=== PATIENT | female | born 1945 | race Caucasian/White ===

== ENCOUNTER 2016-12-08 21:00 | Emergency (ER) | payer MEDICARE, BC ==
[2016-12-08 21:26] VITALS: BP 119/65; PULSE 88; RESP 18; TEMP 97.7
--- NOTE | 2016-12-08 21:57 | ED ---
Recheck HPI - General Chief Complaint: Recheck/Abnormal Lab/Rx Stated Complaint: Labs Time Seen by Provider: 12/08/16 21:37 Source: patient, RN notes reviewed, old records reviewed Mode of arrival: ambulatory Limitations: no limitations - History of Present Illness Initial Comments: This is a 71 year old female, who missed her appointment to leave a urine sample for drug testing requesting we do the drug screen for her. She states that she needs a drug screen with alcohol. I discussed we do not do this test in the ER. Patient states that she needs a note stating that she attempted to have this done. Discussed follow up tomorrow to have the testing completed. She denies any physical symptoms. - Related Data Home Medications Medication Instructions Recorded Confirmed DULoxetine HCL [Cymbalta] 60 mg PO BID 12/18/13 12/08/16 Dextroamphetamine/Amphetamine 30 mg PO BID 12/18/13 12/08/16 [Adderall] clonazePAM [KlonoPIN] 0.5 mg PO BID 12/18/13 12/08/16 Loratadine [Claritin] 10 mg PO DAILY 09/27/15 12/08/16 Fluticasone Nasal [place] [Flonase 2 spr EA NOSTRIL DAILY 06/22/16 12/08/16 Nasal [place]] Previous Rx's Medication Instructions Recorded Gabapentin [Neurontin] 400 mg PO TID #90 cap 05/10/16 Morphine Sulfate ER [Ms Contin] 30 mg PO AC-TID #90 tablet 05/10/16 HYDROcodone/APAP 10-325MG [[place] 10 mg PO QID PRN #15 tab 07/07/16 10-325] Thiamine [Vitamin B-1] 100 mg PO BID@1200,1700 tab 07/07/16 Allergies Allergy/AdvReac Type Severity Reaction Status Date / Time escitalopram oxalate Allergy Rash/Hives Verified 12/08/16 21:23 [From Lexapro] Review of Systems ROS Statement: Those systems with pertinent positive or pertinent negative responses have been documented in the HPI. ROS Other: All systems not noted in ROS Statement are negative. Constitutional: Denies: fever, chills Eyes: Denies: eye pain ENT: Denies: ear pain Respiratory: Denies: cough, dyspnea Cardiovascular: Denies: chest pain Endocrine: Denies: fatigue Gastrointestinal: Denies: abdominal pain, nausea, vomiting Genitourinary: Denies: urgency Musculoskeletal: Denies: back pain Skin: Denies: lesions Neurological: Denies: weakness Hematological/Lymphatic: Denies: easy bleeding Past Medical History Past Medical History: GERD/Reflux Additional Past Medical History / Comment(s): pain clinic treatment, back pain, ARTHRITIS,SPINAL STENOSIS,SCOLIOSIS, SPONDYLOSIS, DDD, BULGIG DISCS, OINCHED NERVES. HAS HAD LOOSE TO WATERYS TOOLS SINCE GASTRIC SX UNLESS SHE TAKES HER PAIN PILLS THAT BIND HER A BIT. History of Any Multi-Drug Resistant Organisms: None Reported Past Surgical History: Bariatric Surgery, Tubal Ligation Additional Past Surgical History / Comment(s): NAMRATA EN Y GASTRIC BYPASS Additional Past Anesthesia/Blood Transfusion Reaction / Comment(s): SON HAD REACTION TO ANESTHESIA AND WAS ON A VENT-FAMILY WAS TESTED Past Psychological History: Anxiety, Depression Smoking Status: Current every day smoker Past Alcohol Use History: Daily, Heavy Additional Past Alcohol Use History / Comment(s): HAS BEEN smoking on and off since a teenager, currently 2-3 cig per day, admits to occ glass of wine Past Drug Use History: Prescription Drug Abuse - Past Family History Son(s) Additional Family Medical History / Comment(s): SON HAD PROBLEM WITH ANESTHESIA WAS ON A VENT-FAMILY WAS TESTED Mother Family Medical History: Myocardial Infarction ([place]) Father Family Medical History: Cancer, Prostate Disorder Additional Family Medical History / Comment(s): prostate cancer Brother(s) Additional Family Medical History / Comment(s): lung General Exam Limitations: no limitations General appearance: alert, in no apparent distress, other (patient has essential tremor. ) Head exam: Present: atraumatic, normocephalic, normal inspection Eye exam: Present: normal appearance, PERRL, EOMI. Absent: scleral icterus, conjunctival injection, periorbital swelling ENT exam: Present: normal exam, mucous membranes moist Neck exam: Present: normal inspection. Absent: tenderness, meningismus, lymphadenopathy Respiratory exam: Present: normal lung sounds bilaterally. Absent: respiratory distress, wheezes, rales, rhonchi, stridor Cardiovascular Exam: Present: regular rate, normal rhythm, normal heart sounds. Absent: systolic murmur, diastolic murmur, rubs, gallop, clicks GI/Abdominal exam: Present: soft, normal bowel sounds. Absent: distended, tenderness, guarding, rebound, rigid Extremities exam: Present: normal inspection, full ROM, normal capillary refill. Absent: tenderness, pedal edema, joint swelling, calf tenderness Back exam: Present: normal inspection Neurological exam: Present: alert, oriented X3, CN II-XII intact Psychiatric exam: Present: normal affect, normal mood Skin exam: Present: warm, dry, intact, normal color. Absent: rash Course Vital Signs 12/08/16 21:21 Temperature 97.7 F Pulse Rate 88 Respiratory 18 Rate Blood Pressure 119/65 O2 Sat by Pulse 98 Oximetry Medical Decision Making - Medical Decision Making This is a 71 year old female, who missed her appointment to leave a urine sample for drug testing requesting we do the drug screen for her. She states that she needs a drug screen with alcohol. I discussed we do not do this test in the ER. Patient states that she needs a note stating that she attempted to have this done. Discussed follow up tomorrow to have the testing completed. Patient agrees to treatment plan and will comply. Patient given note on discharge papers, stating she was here. Disposition Clinical Impression: Encounter for drug screening Disposition: HOME SELF-CARE Condition: Good Additional Instructions: Patient was unable to complete a urine drug screen earlier today at her scheduled place. Patient decided to come to the emergency department to see if we could possibly completely went for her today. I discussed with the patient that we do not offer the specific drug test at our facility. We discussed that she should complete a urine drug screen tomorrow and she can show this note, to show that she did attempt to come to the facility to have a urine drug screen completed. Referrals: Mehdi Varela DO [Primary Care Provider] - 1-2 days Time of Disposition: 21:57
== END 2016-12-08 22:03 | disposition home or self-care (01) ==
LOC: EC 21:00
DX: Z02.83 Encounter for blood-alcohol and blood-drug test (principal); F41.9 Anxiety disorder, unspecified; Z79.899 Other long term (current) drug therapy; Z79.51 Long term (current) use of inhaled steroids; Z98.84 Bariatric surgery status; Z88.8 Allergy status to other drugs, medicaments and biological substances; F17.210 Nicotine dependence, cigarettes, uncomplicated
CPT/HCPCS: 99281

== ENCOUNTER 2017-01-09 02:17 | Emergency (ER) | payer MEDICARE, BC ==
[2017-01-09] MEDS ORDERED: MORPHINE SULFATE 4 MG/ML SYRINGE IM STA (02:46)
[2017-01-09 02:50] VITALS: BP 147/83; PULSE 90; RESP 18; TEMP 97
--- NOTE | 2017-01-09 02:50 | ED ---
Back Pain HPI - General Chief Complaint: Back Pain/Injury Stated Complaint: chronic back pain Time Seen by Provider: 01/09/17 02:41 Source: patient, RN notes reviewed Mode of arrival: ambulatory Limitations: no limitations - History of Present Illness Initial Comments: 71-year-old female presents emergency Department chief complaint chronic back pain. Patient is low back pain. Patient states she has scoliosis and has chronic pain. Patient states she crushed one of her pills on accident and also drops amount of her floor which she could not find them. Patient lab her morphine. Patient is due for her prescription this week. Patient states she cannot tolerate the pain because is not controlled by her [place]. Patient has a bowel bladder incontinence or retention. Denies any chest pain or shortness of breath. Denies any upper back pain. Patient offers no other complaints. - Related Data Home Medications Medication Instructions Recorded Confirmed DULoxetine HCL [Cymbalta] 60 mg PO BID 12/18/13 01/09/17 Dextroamphetamine/Amphetamine 30 mg PO BID 12/18/13 01/09/17 [Adderall] clonazePAM [KlonoPIN] 0.5 mg PO BID 12/18/13 01/09/17 Loratadine [Claritin] 10 mg PO DAILY 09/27/15 01/09/17 Fluticasone Nasal [place] [Flonase 2 spr EA NOSTRIL DAILY 06/22/16 01/09/17 Nasal [place]] Previous Rx's Medication Instructions Recorded Gabapentin [Neurontin] 400 mg PO TID #90 cap 05/10/16 Morphine Sulfate ER [Ms Contin] 30 mg PO AC-TID #90 tablet 05/10/16 HYDROcodone/APAP 10-325MG [[place] 10 mg PO QID PRN #15 tab 07/07/16 10-325] Thiamine [Vitamin B-1] 100 mg PO BID@1200,1700 tab 07/07/16 Allergies Allergy/AdvReac Type Severity Reaction Status Date / Time escitalopram oxalate Allergy Rash/Hives Verified 01/09/17 02:23 [From Lexapro] Review of Systems ROS Statement: Those systems with pertinent positive or pertinent negative responses have been documented in the HPI. ROS Other: All systems not noted in ROS Statement are negative. Past Medical History Past Medical History: GERD/Reflux Additional Past Medical History / Comment(s): pain clinic treatment, back pain, ARTHRITIS,SPINAL STENOSIS,SCOLIOSIS, SPONDYLOSIS, DDD, BULGIG DISCS, OINCHED NERVES. HAS HAD LOOSE TO WATERYS TOOLS SINCE GASTRIC SX UNLESS SHE TAKES HER PAIN PILLS THAT BIND HER A BIT. History of Any Multi-Drug Resistant Organisms: None Reported Past Surgical History: Bariatric Surgery, Tubal Ligation Additional Past Surgical History / Comment(s): NAMRATA EN Y GASTRIC BYPASS Additional Past Anesthesia/Blood Transfusion Reaction / Comment(s): SON HAD REACTION TO ANESTHESIA AND WAS ON A VENT-FAMILY WAS TESTED Past Psychological History: Anxiety, Depression Smoking Status: Current every day smoker Past Alcohol Use History: Daily, Heavy Additional Past Alcohol Use History / Comment(s): HAS BEEN smoking on and off since a teenager, currently 2-3 cig per day, admits to occ glass of wine Past Drug Use History: Prescription Drug Abuse - Past Family History Son(s) Additional Family Medical History / Comment(s): SON HAD PROBLEM WITH ANESTHESIA WAS ON A VENT-FAMILY WAS TESTED Mother Family Medical History: Myocardial Infarction ([place]) Father Family Medical History: Cancer, Prostate Disorder Additional Family Medical History / Comment(s): prostate cancer Brother(s) Additional Family Medical History / Comment(s): lung General Exam Limitations: no limitations General appearance: alert, in no apparent distress Neck exam: Present: normal inspection. Absent: tenderness, meningismus, lymphadenopathy Respiratory exam: Present: normal lung sounds bilaterally. Absent: respiratory distress, wheezes, rales, rhonchi, stridor Cardiovascular Exam: Present: regular rate, normal rhythm, normal heart sounds. Absent: systolic murmur, diastolic murmur, rubs, gallop, clicks GI/Abdominal exam: Present: soft, normal bowel sounds. Absent: distended, tenderness, guarding, rebound, rigid Extremities exam: Present: normal inspection, full ROM, normal capillary refill. Absent: tenderness, pedal edema, joint swelling, calf tenderness Back exam: Present: full ROM, tenderness (Mild lumbar), paraspinal tenderness ( Lumbar). Absent: normal inspection (Scoliosis noted), vertebral tenderness Skin exam: Present: warm, dry, intact, normal color. Absent: rash Course Vital Signs 01/09/17 02:20 Temperature 97 F L Pulse Rate 90 Respiratory 18 Rate Blood Pressure 147/83 O2 Sat by Pulse 100 Oximetry Medical Decision Making - Medical Decision Making 79-year-old female presented for chronic pain. Patient is out of her morphine. Patient be given an injection of this time and she is advised that this is a 1 time dose for that she is not getting her prescription and that she would not get any further pain medication from the ER at this time. Patient agrees this plan and will follow-up today for her prescription her morphine. Disposition Clinical Impression: Scoliosis, Chronic back pain Disposition: HOME SELF-CARE Condition: Stable Instructions: Chronic Back Pain (ED) Additional Instructions: Please return to the Emergency Department if symptoms worsen or any other concerns. Referrals: Mehdi Varela DO [Primary Care Provider] - 1-2 days Time of Disposition: 02:49
== END 2017-01-09 02:58 | disposition home or self-care (01) ==
LOC: EC 02:17
DX: M41.9 Scoliosis, unspecified (principal); G89.29 Other chronic pain; M54.5 Low back pain; K21.9 Gastro-esophageal reflux disease without esophagitis; F32.9 Major depressive disorder, single episode, unspecified; F41.9 Anxiety disorder, unspecified; F17.210 Nicotine dependence, cigarettes, uncomplicated; Z79.51 Long term (current) use of inhaled steroids; Z79.899 Other long term (current) drug therapy; Z88.8 Allergy status to other drugs, medicaments and biological substances
CPT/HCPCS: 96372 ×2; 99283 ×2; 99282; J2270

== ENCOUNTER 2017-01-09 22:45 | Emergency (ER) | payer MEDICARE, BC ==
[2017-01-09 22:52] VITALS: BP 121/64; PULSE 70; RESP 18; TEMP 97.3
[2017-01-09] MEDS ORDERED: MORPHINE SULFATE 4 MG/ML SYRINGE IM STA (23:18)
--- NOTE | 2017-01-09 23:21 | ED ---
Back Pain HPI - General Chief Complaint: Back Pain/Injury Stated Complaint: Back pain Time Seen by Provider: 01/09/17 23:05 Source: patient, RN notes reviewed Limitations: no limitations - History of Present Illness Initial Comments: 71-year-old female presents emergency Department chief complaint of back pain. Patient suffers from chronic back pain. Patient is here because she ran out of her prescription. Patient states she just needs some help with her pain. Patient states this is much like her normal back pain. Patient states in the center of her back. Patient denies any loss of bowel or bladder function or any saddle anesthesia with this. Patient states she is not currently having any other symptoms.Patient denies any recent fever, chills, shortness of breath , chest pain, abdominal pain, nausea vomiting, numbness or tingling, dysuria or hematuria, constipation or diarrhea, headaches or visual changes, or any other current symptoms. - Related Data Home Medications Medication Instructions Recorded Confirmed DULoxetine HCL [Cymbalta] 60 mg PO BID 12/18/13 01/09/17 Dextroamphetamine/Amphetamine 30 mg PO BID 12/18/13 01/09/17 [Adderall] clonazePAM [KlonoPIN] 0.5 mg PO BID 12/18/13 01/09/17 Loratadine [Claritin] 10 mg PO DAILY 09/27/15 01/09/17 Fluticasone Nasal [place] [Flonase 2 spr EA NOSTRIL DAILY 06/22/16 01/09/17 Nasal [place]] Previous Rx's Medication Instructions Recorded Gabapentin [Neurontin] 400 mg PO TID #90 cap 05/10/16 Morphine Sulfate ER [Ms Contin] 30 mg PO AC-TID #90 tablet 05/10/16 HYDROcodone/APAP 10-325MG [[place] 10 mg PO QID PRN #15 tab 07/07/16 10-325] Thiamine [Vitamin B-1] 100 mg PO BID@1200,1700 tab 07/07/16 Allergies Allergy/AdvReac Type Severity Reaction Status Date / Time escitalopram oxalate Allergy Rash/Hives Verified 01/09/17 23:17 [From [employer]] Review of Systems ROS Statement: Those systems with pertinent positive or pertinent negative responses have been documented in the HPI. ROS Other: All systems not noted in ROS Statement are negative. Past Medical History Past Medical History: GERD/Reflux Additional Past Medical History / Comment(s): pain clinic treatment, back pain, ARTHRITIS,SPINAL STENOSIS,SCOLIOSIS, SPONDYLOSIS, DDD, BULGIG DISCS, OINCHED NERVES. HAS HAD LOOSE TO WATERYS TOOLS SINCE GASTRIC SX UNLESS SHE TAKES HER PAIN PILLS THAT BIND HER A BIT. History of Any Multi-Drug Resistant Organisms: None Reported Past Surgical History: Bariatric Surgery, Tubal Ligation Additional Past Surgical History / Comment(s): NAMRATA EN Y GASTRIC BYPASS Additional Past Anesthesia/Blood Transfusion Reaction / Comment(s): SON HAD REACTION TO ANESTHESIA AND WAS ON A VENT-FAMILY WAS TESTED Past Psychological History: Anxiety, Depression Smoking Status: Current every day smoker Past Alcohol Use History: Daily, Heavy Additional Past Alcohol Use History / Comment(s): HAS BEEN smoking on and off since a teenager, currently 2-3 cig per day, admits to occ glass of wine Past Drug Use History: Prescription Drug Abuse - Past Family History Son(s) Additional Family Medical History / Comment(s): SON HAD PROBLEM WITH ANESTHESIA WAS ON A VENT-FAMILY WAS TESTED Mother Family Medical History: Myocardial Infarction ([place]) Father Family Medical History: Cancer, Prostate Disorder Additional Family Medical History / Comment(s): prostate cancer Brother(s) Additional Family Medical History / Comment(s): lung General Exam Limitations: no limitations General appearance: alert, in no apparent distress Head exam: Present: atraumatic, normocephalic, normal inspection ENT exam: Present: normal exam, mucous membranes moist Neck exam: Present: normal inspection. Absent: tenderness, meningismus, lymphadenopathy Respiratory exam: Present: normal lung sounds bilaterally. Absent: respiratory distress, wheezes, rales, rhonchi, stridor Cardiovascular Exam: Present: regular rate, normal rhythm, normal heart sounds. Absent: systolic murmur, diastolic murmur, rubs, gallop, clicks Extremities exam: Present: normal inspection, full ROM, normal capillary refill. Absent: tenderness, pedal edema, joint swelling, calf tenderness Back exam: Present: normal inspection Neurological exam: Present: alert, oriented X3, CN II-XII intact Psychiatric exam: Present: normal affect, normal mood Skin exam: Present: warm, dry, intact, normal color. Absent: rash Course Vital Signs 01/09/17 22:49 Temperature 97.3 F L Pulse Rate 70 Respiratory 18 Rate Blood Pressure 121/64 O2 Sat by Pulse 99 Oximetry Medical Decision Making - Medical Decision Making 71-year-old female presents with a flare up of chronic back pain. This and we will give her an injection for pain. We discussed follow-up with her DrFlorencio rader. We discussed will not give her any narcotic prescriptions for home. Patient stated that she understood and all questions have been answered. She will be discharged. Disposition Clinical Impression: Chronic back pain Disposition: HOME SELF-CARE Condition: Stable Instructions: Chronic Back Pain (ED) Additional Instructions: Please use medication as discussed. Please follow up with family doctor if symptoms have not improved over the next two days. Please return to the emergency room if your symptoms increase or worsen or for any other concerns. Referrals: Mehdi Varela DO [Primary Care Provider] - 1-2 days Time of Disposition: 23:20
== END 2017-01-09 23:48 | disposition home or self-care (01) ==
LOC: EC 22:45
DX: G89.29 Other chronic pain (principal); M54.9 Dorsalgia, unspecified; F32.9 Major depressive disorder, single episode, unspecified; F41.9 Anxiety disorder, unspecified; F17.210 Nicotine dependence, cigarettes, uncomplicated; Z79.51 Long term (current) use of inhaled steroids; Z79.899 Other long term (current) drug therapy; Z88.8 Allergy status to other drugs, medicaments and biological substances
CPT/HCPCS: 99282; 96372; J2270

== ENCOUNTER 2017-01-10 16:42 | Emergency (ER) | payer MEDICARE, BC ==
[2017-01-10 17:19] VITALS: BP 110/79; PULSE 94; RESP 20; TEMP 98.1
--- NOTE | 2017-01-10 17:32 | ED ---
General Adult HPI - General Chief complaint: Recheck/Abnormal Lab/Rx Stated complaint: Back/Leg Pain Time Seen by Provider: 01/10/17 17:24 Source: patient, RN notes reviewed Mode of arrival: wheelchair Limitations: no limitations - History of Present Illness Initial comments: 71-year-old female presents to the emergency department requesting a narcotic pain shot. Patient's has been here every day for the past 2 days. That she ran out of her narcotics and cannot have them filled until tomorrow. Patient states this is much like her normal back pain. Patient states her chronic pain. Patient states it is because she ran out of her morphine. Patient claims that she lost some of her morphine. Patient states this is exactly like her normal back pain with no change in her different symptoms. Patient states that she was concerned due to her increased pain and she cannot have her medications with tomorrow so she thought that she should be evaluated. Patient denies any recent fever, chills, shortness of breath, chest pain, abdominal pain , nausea vomiting, numbness or tingling, dysuria or hematuria, constipation or diarrhea, headaches or visual changes, or any other current symptoms. - Related Data Home Medications Medication Instructions Recorded Confirmed DULoxetine HCL [Cymbalta] 60 mg PO BID 12/18/13 01/09/17 Dextroamphetamine/Amphetamine 30 mg PO BID 12/18/13 01/09/17 [Adderall] clonazePAM [KlonoPIN] 0.5 mg PO BID 12/18/13 01/09/17 Loratadine [Claritin] 10 mg PO DAILY 09/27/15 01/09/17 Gabapentin [Neurontin] 400 mg PO QID 01/09/17 01/09/17 HYDROcodone/APAP 10-325MG [[place] 1 tab PO QID PRN 01/09/17 01/09/17 10-325] Morphine Sulfate [Morphine Sulfate 50 mg PO BID 01/09/17 01/09/17 ER] Allergies Allergy/AdvReac Type Severity Reaction Status Date / Time escitalopram oxalate Allergy Rash/Hives Verified 01/10/17 17:19 [From Lexapro] Review of Systems ROS Statement: Those systems with pertinent positive or pertinent negative responses have been documented in the HPI. ROS Other: All systems not noted in ROS Statement are negative. Past Medical History Past Medical History: GERD/Reflux Additional Past Medical History / Comment(s): pain clinic treatment, back pain, ARTHRITIS,SPINAL STENOSIS,SCOLIOSIS, SPONDYLOSIS, DDD, BULGIG DISCS, OINCHED NERVES. HAS HAD LOOSE TO WATERYS TOOLS SINCE GASTRIC SX UNLESS SHE TAKES HER PAIN PILLS THAT BIND HER A BIT. History of Any Multi-Drug Resistant Organisms: None Reported Past Surgical History: Bariatric Surgery, Tubal Ligation Additional Past Surgical History / Comment(s): NAMRATA EN Y GASTRIC BYPASS Additional Past Anesthesia/Blood Transfusion Reaction / Comment(s): SON HAD REACTION TO ANESTHESIA AND WAS ON A VENT-FAMILY WAS TESTED Past Psychological History: Anxiety, Depression Smoking Status: Current every day smoker Past Alcohol Use History: Daily, Heavy Additional Past Alcohol Use History / Comment(s): HAS BEEN smoking on and off since a teenager, currently 2-3 cig per day, admits to occ glass of wine Past Drug Use History: Prescription Drug Abuse - Past Family History Son(s) Additional Family Medical History / Comment(s): SON HAD PROBLEM WITH ANESTHESIA WAS ON A VENT-FAMILY WAS TESTED Mother Family Medical History: Myocardial Infarction ([place]) Father Family Medical History: Cancer, Prostate Disorder Additional Family Medical History / Comment(s): prostate cancer Brother(s) Additional Family Medical History / Comment(s): lung General Exam Limitations: no limitations General appearance: alert, in no apparent distress ENT exam: Present: normal exam, mucous membranes moist Neck exam: Present: normal inspection. Absent: tenderness, meningismus, lymphadenopathy Respiratory exam: Present: normal lung sounds bilaterally. Absent: respiratory distress, wheezes, rales, rhonchi, stridor Cardiovascular Exam: Present: regular rate, normal rhythm, normal heart sounds. Absent: systolic murmur, diastolic murmur, rubs, gallop, clicks Extremities exam: Present: normal inspection, full ROM, normal capillary refill. Absent: tenderness, pedal edema, joint swelling, calf tenderness Back exam: Present: normal inspection, full ROM, tenderness (Throughout the lumbar spine) Neurological exam: Present: alert, oriented X3 Psychiatric exam: Present: normal affect, normal mood Skin exam: Present: warm, dry, intact, normal color. Absent: rash Course Vital Signs 01/10/17 17:14 Temperature 98.1 F Pulse Rate 94 Respiratory 20 Rate Blood Pressure 110/79 O2 Sat by Pulse 99 Oximetry Medical Decision Making - Medical Decision Making 71 yo female presents to the ER with cc of chronic back pain. Patient is currently her narcotics. I assembled the patient morphine injection. We discussed that she needs to follow-up with her pain specialist. Discussed return parameters all her questions. She states she understood and she is here in the plan. She'll be discharged. Disposition Clinical Impression: Chronic back pain Disposition: HOME SELF-CARE Condition: Stable Instructions: Chronic Back Pain (ED) Additional Instructions: Please use medication as discussed. Please follow up with family doctor if symptoms have not improved over the next two days. Please return to the emergency room if your symptoms increase or worsen or for any other concerns. Referrals: Mehdi Varela DO [Primary Care Provider] - 1-2 days Time of Disposition: 17:32
[2017-01-10] MEDS ORDERED: MORPHINE SULFATE 10 MG/ML SYRINGE IM STA (17:44)
== END 2017-01-10 17:57 | disposition home or self-care (01) ==
LOC: EC 16:42
DX: G89.29 Other chronic pain (principal); M54.9 Dorsalgia, unspecified; M19.90 Unspecified osteoarthritis, unspecified site; F41.9 Anxiety disorder, unspecified; F32.9 Major depressive disorder, single episode, unspecified; F17.210 Nicotine dependence, cigarettes, uncomplicated; Z79.891 Long term (current) use of opiate analgesic; Z79.899 Other long term (current) drug therapy; Z88.8 Allergy status to other drugs, medicaments and biological substances
CPT/HCPCS: 99283; 96372; J2270

== ENCOUNTER 2017-02-11 15:24 | Emergency (ER) | payer MEDICARE, BC ==
[2017-02-11 15:31] VITALS: BP 120/84; PULSE 94; RESP 20; TEMP 98.1
[2017-02-11] MEDS ORDERED: MORPHINE SULFATE 10 MG/ML SYRINGE IM STA (15:57)
--- NOTE | 2017-02-11 16:05 | ED ---
Back Pain HPI - General Chief Complaint: Back Pain/Injury Stated Complaint: spine pain Time Seen by Provider: 02/11/17 15:37 Source: patient, RN notes reviewed Limitations: no limitations - History of Present Illness Initial Comments: Patient is a 71-year-old female presents to the emergency room for evaluation of back pain. Patient states she has a history of chronic back pain. Patient states she has scoliosis. Patient states she takes [place], gabapentin and morphine for her chronic pain. Patient states that she ran out of her morphine on Sunday. Patient states her last dose of morphine was Sunday. Patient states she is having increasing pain because she has not been able to take her morphine. Patient states the [place] does help relieve the symptoms but only takes the edge off. Patient states that she needs refill on her prescriptions. Patient states the pain in her upper and lower back. Patient denies fecal or urinary incontinence. Patient denies saddle anesthesia. Patient denies any recent fall or trauma to her back. Patient denies reinjuring her back recently. - Related Data Home Medications Medication Instructions Recorded Confirmed DULoxetine HCL [Cymbalta] 60 mg PO BID 12/18/13 02/11/17 Dextroamphetamine/Amphetamine 30 mg PO BID 12/18/13 02/11/17 [Adderall] clonazePAM [KlonoPIN] 0.5 mg PO BID 12/18/13 02/11/17 Loratadine [Claritin] 10 mg PO DAILY 09/27/15 02/11/17 Gabapentin [Neurontin] 400 mg PO QID 01/09/17 02/11/17 HYDROcodone/APAP 10-325MG [[place] 1 tab PO QID PRN 01/09/17 02/11/17 10-325] Morphine Sulfate [Morphine Sulfate 50 mg PO BID 01/09/17 02/11/17 ER] Allergies Allergy/AdvReac Type Severity Reaction Status Date / Time escitalopram oxalate Allergy Rash/Hives Verified 02/11/17 15:45 [From Epicsellapro] Review of Systems ROS Statement: Those systems with pertinent positive or pertinent negative responses have been documented in the HPI. ROS Other: All systems not noted in ROS Statement are negative. Past Medical History Past Medical History: GERD/Reflux Additional Past Medical History / Comment(s): pain clinic treatment, back pain, ARTHRITIS,SPINAL STENOSIS,SCOLIOSIS, SPONDYLOSIS, DDD, BULGIG DISCS, OINCHED NERVES. HAS HAD LOOSE TO WATERYS TOOLS SINCE GASTRIC SX UNLESS SHE TAKES HER PAIN PILLS THAT BIND HER A BIT. History of Any Multi-Drug Resistant Organisms: None Reported Past Surgical History: Bariatric Surgery, Tubal Ligation Additional Past Surgical History / Comment(s): NAMRATA EN Y GASTRIC BYPASS Additional Past Anesthesia/Blood Transfusion Reaction / Comment(s): SON HAD REACTION TO ANESTHESIA AND WAS ON A VENT-FAMILY WAS TESTED Past Psychological History: Anxiety, Depression Smoking Status: Current every day smoker Past Alcohol Use History: Daily, Heavy Past Drug Use History: Prescription Drug Abuse - Past Family History Son(s) Additional Family Medical History / Comment(s): SON HAD PROBLEM WITH ANESTHESIA WAS ON A VENT-FAMILY WAS TESTED Mother Family Medical History: Myocardial Infarction ([place]) Father Family Medical History: Cancer, Prostate Disorder Additional Family Medical History / Comment(s): prostate cancer Brother(s) Additional Family Medical History / Comment(s): lung General Exam - General Exam Comments Initial Comments: Laying in exam room, no distress. Limitations: no limitations General appearance: alert, in no apparent distress Head exam: Present: atraumatic, normocephalic, normal inspection Eye exam: Present: normal appearance ENT exam: Present: normal exam Neck exam: Present: normal inspection Respiratory exam: Present: normal lung sounds bilaterally. Absent: respiratory distress Cardiovascular Exam: Present: regular rate, normal rhythm, normal heart sounds Extremities exam: Present: normal inspection Back exam: Present: vertebral tenderness (tenderness on palpating over lumbar spine) Neurological exam: Present: alert, oriented X3, CN II-XII intact Psychiatric exam: Present: normal affect, normal mood Skin exam: Present: warm, dry, intact, normal color. Absent: rash Course Vital Signs 02/11/17 15:29 Temperature 98.1 F Pulse Rate 94 Respiratory 20 Rate Blood Pressure 120/84 O2 Sat by Pulse 98 Oximetry Medical Decision Making - Medical Decision Making Patient is a 71-year-old female since emergency room for evaluation of chronic back pain. I did explain to patient that we do not provide refills for morphine and that she would have to follow-up with her primary care provider. Patient was given a pain shot here. Return parameters discussed. Disposition Clinical Impression: Chronic back pain Disposition: HOME SELF-CARE Condition: Good Instructions: Chronic Back Pain (ED) Additional Instructions: Please follow up with primary care provider regarding pain medications. Alternate ice and heat. Continue taking at home pain medications as needed. If any new symptom arises or symptoms worsen, return to ER as soon as possible. Referrals: Mehdi Varela DO [Primary Care Provider] - 1-2 days Time of Disposition: 16:04
== END 2017-02-11 16:48 | disposition home or self-care (01) ==
LOC: EC 15:24
DX: G89.29 Other chronic pain (principal); M54.5 Low back pain; M41.9 Scoliosis, unspecified; M19.90 Unspecified osteoarthritis, unspecified site; M47.9 Spondylosis, unspecified; M48.00 Spinal stenosis, site unspecified; F41.9 Anxiety disorder, unspecified; F32.9 Major depressive disorder, single episode, unspecified; F17.200 Nicotine dependence, unspecified, uncomplicated; Z88.8 Allergy status to other drugs, medicaments and biological substances; Z79.891 Long term (current) use of opiate analgesic; Z79.899 Other long term (current) drug therapy
CPT/HCPCS: 99283; 96372; J2270

== ENCOUNTER 2017-02-13 13:35 | Emergency (ER) | payer MEDICARE, BC ==
[2017-02-13 13:40] VITALS: BP 124/76; PULSE 90; RESP 18; TEMP 97.5
--- NOTE | 2017-02-13 14:04 | ED ---
Back Pain HPI - General Chief Complaint: Back Pain/Injury Stated Complaint: Back Pain Time Seen by Provider: 02/13/17 13:49 Source: patient, RN notes reviewed Limitations: no limitations - History of Present Illness Initial Comments: 71-year-old female presents to the emergency Department chief complaint of chronic back pain. Patient states that she has chronic back pain which she takes morphine and [place] for. Patient states she's only received her [place] because where she states the [facility] supposedly does not have her refills. Patient states her back pain is not controlled about morphine and that is why she is here. Patient denies any fever chills cough cold. Patient states that like her back pain. Patient denies any loss of bowel or bladder function. Patient was concerned due to her pain and discomfort so she thought that she should be evaluated. Patient denies any recent fever, chills, shortness of breath, chest pain, abdominal pain, nausea vomiting, numbness or tingling, dysuria or hematuria, constipation or diarrhea, headaches or visual changes, or any other current symptoms. - Related Data Home Medications Medication Instructions Recorded Confirmed DULoxetine HCL [Cymbalta] 60 mg PO BID 12/18/13 02/13/17 Dextroamphetamine/Amphetamine 30 mg PO BID 12/18/13 02/13/17 [Adderall] clonazePAM [KlonoPIN] 0.5 mg PO BID 12/18/13 02/13/17 Loratadine [Claritin] 10 mg PO DAILY 09/27/15 02/13/17 Gabapentin [Neurontin] 400 mg PO QID 01/09/17 02/13/17 HYDROcodone/APAP 10-325MG [[place] 1 tab PO QID PRN 01/09/17 02/13/17 10-325] Morphine Sulfate [Morphine Sulfate 50 mg PO BID 01/09/17 02/13/17 ER] Allergies Allergy/AdvReac Type Severity Reaction Status Date / Time escitalopram oxalate Allergy Rash/Hives Verified 02/13/17 13:43 [From Lexapro] Review of Systems ROS Statement: Those systems with pertinent positive or pertinent negative responses have been documented in the HPI. ROS Other: All systems not noted in ROS Statement are negative. Past Medical History Past Medical History: GERD/Reflux Additional Past Medical History / Comment(s): pain clinic treatment, back pain, ARTHRITIS,SPINAL STENOSIS,SCOLIOSIS, SPONDYLOSIS, DDD, BULGIG DISCS, OINCHED NERVES. HAS HAD LOOSE TO WATERYS TOOLS SINCE GASTRIC SX UNLESS SHE TAKES HER PAIN PILLS THAT BIND HER A BIT. History of Any Multi-Drug Resistant Organisms: None Reported Past Surgical History: Bariatric Surgery, Tubal Ligation Additional Past Surgical History / Comment(s): NAMRATA EN Y GASTRIC BYPASS Additional Past Anesthesia/Blood Transfusion Reaction / Comment(s): SON HAD REACTION TO ANESTHESIA AND WAS ON A VENT-FAMILY WAS TESTED Past Psychological History: Anxiety, Depression Smoking Status: Current every day smoker Past Alcohol Use History: None Reported Past Drug Use History: Prescription Drug Abuse - Past Family History Son(s) Additional Family Medical History / Comment(s): SON HAD PROBLEM WITH ANESTHESIA WAS ON A VENT-FAMILY WAS TESTED Mother Family Medical History: Myocardial Infarction ([place]) Father Family Medical History: Cancer, Prostate Disorder Additional Family Medical History / Comment(s): prostate cancer Brother(s) Additional Family Medical History / Comment(s): lung General Exam Limitations: no limitations General appearance: alert, in no apparent distress Head exam: Present: atraumatic, normocephalic, normal inspection Neck exam: Present: normal inspection. Absent: tenderness, meningismus, lymphadenopathy Respiratory exam: Present: normal lung sounds bilaterally. Absent: respiratory distress, wheezes, rales, rhonchi, stridor Cardiovascular Exam: Present: regular rate, normal rhythm, normal heart sounds. Absent: systolic murmur, diastolic murmur, rubs, gallop, clicks GI/Abdominal exam: Present: soft, normal bowel sounds. Absent: distended, tenderness, guarding, rebound, rigid Back exam: Present: normal inspection, full ROM. Absent: tenderness Neurological exam: Present: alert, oriented X3 Psychiatric exam: Present: normal affect, normal mood Skin exam: Present: warm, dry, intact, normal color. Absent: rash Course Vital Signs 02/13/17 13:36 Temperature 97.5 F L Pulse Rate 90 Respiratory 18 Rate Blood Pressure 124/76 O2 Sat by Pulse 99 Oximetry Medical Decision Making - Medical Decision Making 71-year-old female presents emergency Department chief complaint of back pain. At this time we contacted [facility] and they are not refilling patient's morphine due to the doctor not wanting to refill this and wanting to evaluate the patient. This time we will not be given the patient morphine. She brought up offered a Toradol injection. This patient will be discharged home. All questions have been answered. Disposition Clinical Impression: Chronic back pain Disposition: HOME SELF-CARE Condition: Stable Instructions: Chronic Back Pain (ED) Additional Instructions: Please use medication as discussed. Please follow up with family doctor if symptoms have not improved over the next two days. Please return to the emergency room if your symptoms increase or worsen or for any other concerns. Referrals: Mehdi Varela DO [Primary Care Provider] - 1-2 days Time of Disposition: 14:16
[2017-02-13] MEDS ORDERED: KETOROLAC 60 MG/2 ML VIAL IM STA (14:18)
== END 2017-02-13 14:31 | disposition home or self-care (01) ==
LOC: EC 13:35
DX: G89.29 Other chronic pain (principal); M54.9 Dorsalgia, unspecified; M19.90 Unspecified osteoarthritis, unspecified site; F32.9 Major depressive disorder, single episode, unspecified; F41.9 Anxiety disorder, unspecified; F17.200 Nicotine dependence, unspecified, uncomplicated; Z79.899 Other long term (current) drug therapy; Z88.8 Allergy status to other drugs, medicaments and biological substances
CPT/HCPCS: 99282; 96372; J1885

== ENCOUNTER → 2017-07-06 | Outpatient (CLI) | payer MEDICARE, BC ==
--- NOTE | 2017-07-06 23:11 | MR ---
EXAMINATION TYPE: MR tspine/lspine wo con DATE OF EXAM: 07/06/2017 COMPARISON: NONE HISTORY: Chronic back pain TECHNIQUE: Multiplanar, multisequence imaging of the lumbar spine is performed without IV contrast. Multiplanar multiecho imaging of the thoracic spine was performed without contrast. FINDINGS: Thoracic vertebra have normal alignment. There is 10% anterior wedging of T4 vertebra consi stent with an old fracture. Thoracic spinal cord has fairly normal signal pattern. There is no eviden ce of edema. There is no thoracic spinal stenosis. There is no thoracic paraspinal mass. The posterio r elements appear intact. There is slight decreased signal in the disks throughout the thoracic spine related to desiccation. There is some anterior and posterior endplate spur formation at levels from T9 to T12 without significant encroachment on the spinal canal. There is a thoracolumbar levoscoliosis. There is 5 mm anterior subluxation of L4 in relation L5. Ther e is 10% depression of the superior endplate of L1 vertebra that appears old. There is dural ectasia with sacral cysts present at S1 and S2. I see no lumbar paraspinal mass. Visualized sacroiliac joints appear intact. There is neural foramina l narrowing bilaterally at L4-5 due to the subluxation deformity and disc space narrowing and facet a rthropathy. CONCLUSION: Spondylotic changes in the thoracic and lumbar spine. Old mild compression deformity of T4 vertebra. Old mild compression deformity of L1 vertebra. Degenerative first degree L4-5 spondylolisthesis. No spinal stenosis. Small posterior disc bulging at L3-4 and L1-2 and L2-3. Neural foraminal stenosis on the left side more than the right at L4-5. Thoracolumbar levoscoliosis. Sacral cysts.
== END | disposition home or self-care (01) ==
LOC: RADMRIMAIN 14:41
PROVIDERS: ATTEND Family Medicine
DX: M99.73 Connective tissue and disc stenosis of intervertebral foramina of lumbar region (principal); M51.26 Other intervertebral disc displacement, lumbar region; M43.16 Spondylolisthesis, lumbar region; M47.816 Spondylosis without myelopathy or radiculopathy, lumbar region; M47.814 Spondylosis without myelopathy or radiculopathy, thoracic region; M41.85 Other forms of scoliosis, thoracolumbar region; M85.68 Other cyst of bone, other site
CPT/HCPCS: 72146; 72148

== ENCOUNTER 2017-08-14 21:06 | Emergency (ER) | payer MEDICARE, BC ==
--- NOTE | 2017-08-14 22:13 | ED ---
General Adult HPI - General Chief complaint: Recheck/Abnormal Lab/Rx Stated complaint: pain Time Seen by Provider: 08/14/17 21:52 Source: patient, RN notes reviewed Mode of arrival: wheelchair Limitations: no limitations - History of Present Illness Initial comments: This is a 71-year-old female who presents to the emergency department with chief complaint of pain. Patient has chronic back pain and is well-known to this emergency department. She states that she takes Morphine and [place] for her chronic back pain. Medications are given to her by her guardian. Patient states that her guardian is out of town so she has been receiving medications from her guardian's secretary to board of commissioners. She states that last she was given enough morphine to last until Sunday. She states that she took 3 [place] today and is now out of all pain medications. Patient requests pain medication. Denies any new injuries, trauma or falls. Denies chest pain, shortness of breath, abdominal pain, nausea or vomiting. Patient does state that she has been having some diarrhea recently and worries she is withdrawing. - Related Data Home Medications Medication Instructions Recorded Confirmed DULoxetine HCL [Cymbalta] 60 mg PO BID 12/18/13 08/14/17 Loratadine [Claritin] 10 mg PO DAILY 09/27/15 08/14/17 Gabapentin [Neurontin] 400 mg PO QID 01/09/17 08/14/17 HYDROcodone/APAP 10-325MG [[place] 1 tab PO QID PRN 01/09/17 08/14/17 10-325] Morphine Sulfate [Morphine Sulfate 50 mg PO BID 01/09/17 08/14/17 ER] QUEtiapine FUMARATE [SEROquel] 25 mg PO BID 08/14/17 08/14/17 Allergies Allergy/AdvReac Type Severity Reaction Status Date / Time escitalopram oxalate Allergy Rash/Hives Verified 08/14/17 21:57 [From Lexapro] Review of Systems ROS Statement: Those systems with pertinent positive or pertinent negative responses have been documented in the HPI. ROS Other: All systems not noted in ROS Statement are negative. Past Medical History Past Medical History: GERD/Reflux Additional Past Medical History / Comment(s): pain clinic treatment, back pain, ARTHRITIS,SPINAL STENOSIS,SCOLIOSIS, SPONDYLOSIS, DDD, BULGIG DISCS, OINCHED NERVES. HAS HAD LOOSE TO WATERYS TOOLS SINCE GASTRIC SX UNLESS SHE TAKES HER PAIN PILLS THAT BIND HER A BIT. History of Any Multi-Drug Resistant Organisms: None Reported Past Surgical History: Bariatric Surgery, Tubal Ligation Additional Past Surgical History / Comment(s): NAMRATA EN Y GASTRIC BYPASS Additional Past Anesthesia/Blood Transfusion Reaction / Comment(s): SON HAD REACTION TO ANESTHESIA AND WAS ON A VENT-FAMILY WAS TESTED Past Psychological History: Anxiety, Depression Smoking Status: Current every day smoker Past Alcohol Use History: None Reported Past Drug Use History: Prescription Drug Abuse - Past Family History Son(s) Additional Family Medical History / Comment(s): SON HAD PROBLEM WITH ANESTHESIA WAS ON A VENT-FAMILY WAS TESTED Mother Family Medical History: Myocardial Infarction ([place]) Father Family Medical History: Cancer, Prostate Disorder Additional Family Medical History / Comment(s): prostate cancer Brother(s) Additional Family Medical History / Comment(s): lung General Exam - General Exam Comments Initial Comments: General: Awake and alert, well-developed; in no apparent distress. Does not appear to be acutely ill. HEENT: Head atraumatic, normocephalic. Pupils are equal, round and reactive to light. Extraocular movements intact. Oropharynx moist without erythema or exudate. Neck: Supple. Normal ROM. Cardiovascular: Regular rate and rhythm. No murmurs, rubs or gallops. Chest symmetrical. Respiratory: Lungs clear to auscultation bilaterally. No wheezes, rales or rhonchi. Normal respiratory effort with no use of accessory muscles. Musculoskeletal: Normal ROM, no tenderness bilateral upper and lower extremities. Skin: [place], warm and dry without rashes or lesions. Neurological: Alert and oriented x3. CN II-XII grossly intact. Speech is fluent and answers are appropriate. No focal neuro deficits. Limitations: no limitations Course Vital Signs 08/14/17 21:27 Temperature 97.7 F Pulse Rate 105 H Respiratory 18 Rate Blood Pressure 136/86 O2 Sat by Pulse 99 Oximetry Medical Decision Making - Medical Decision Making This is a 71-year-old female who presents to the emergency department with chief complaint of pain. Patient has chronic pain for which she takes morphine and [place]. We were awaiting return call from patient's guardian regarding administration of narcotics while in the emergency department. Vital signs stable and not having an acute medical emergency. On reevaluation, patient states she would like to go home. She exited the emergency department to await a taxi ride home. She refused to stay, stating that her guardian was not going to be calling back. Patient left without completion of evaluation and treatment ; patient eloped. Disposition Clinical Impression: Chronic back pain Disposition: Left Against Medical Advice Condition: Good Instructions: Chronic Back Pain (ED) Additional Instructions: Please follow up with primary care provider within 1-2 days. Return to emergency department if symptoms should worsen or any concerns arise. Referrals: Mehdi Varela DO [Primary Care Provider] - 1-2 days Time of Disposition: 22:22
[2017-08-15 23:14] VITALS: BP 136/86; PULSE 105; RESP 18; TEMP 97.7
== END 2017-08-14 22:24 | disposition left against medical advice (07) ==
LOC: EC 21:06
DX: M54.9 Dorsalgia, unspecified (principal); G89.29 Other chronic pain; F41.9 Anxiety disorder, unspecified; F32.9 Major depressive disorder, single episode, unspecified; F17.200 Nicotine dependence, unspecified, uncomplicated; Z53.29 Procedure and treatment not carried out because of patient's decision for other reasons; Z79.899 Other long term (current) drug therapy; Z79.891 Long term (current) use of opiate analgesic; Z88.8 Allergy status to other drugs, medicaments and biological substances
CPT/HCPCS: 99282

== ENCOUNTER 2017-08-16 12:37 | Emergency (ER) | payer MEDICARE, BC ==
[2017-08-16] MEDS ORDERED: KETOROLAC 60 MG/2 ML VIAL IM STA (13:03)
--- NOTE | 2017-08-16 13:09 | ED ---
General Adult HPI - General Chief complaint: Back Pain/Injury Stated complaint: Back Pain Time Seen by Provider: 08/16/17 12:50 Source: EMS Mode of arrival: EMS Limitations: no limitations - History of Present Illness Initial comments: This 71-year-old white female presents requesting morphine. She states that she has chronic back pain and she has not had any of her medications in the last 4 days. She apparently had the police and EMS called by her neighbor. She apparently does have a significant problem with narcotic abuse. She has a court appointed guardian, Saman. His office number is [phone]. He apparently is an commercial litigation attorney. She was just here on 08/14/2017 for the same. She did not receive any narcotics to the ER at that time. She has no change in her back pain. It is chronic in nature. It does not radiate. There is no fevers or chills. She is repetitively asking for narcotics. Old records are reviewed and it appears that she does have a significant alcohol abuse problem as well. The patient states that she did drink alcohol last night to help dull the pain. According to EMS, there are multiple empty vodka bottles around the apartment. No other complaints or modifying factors. - Related Data Home Medications Medication Instructions Recorded Confirmed DULoxetine HCL [Cymbalta] 60 mg PO BID 12/18/13 08/16/17 Loratadine [Claritin] 10 mg PO DAILY 09/27/15 08/16/17 HYDROcodone/APAP 10-325MG [[place] 1 tab PO BID PRN 01/09/17 08/16/17 10-325] Fluticasone Nasal [place] [Flonase 2 spr EA NOSTRIL DAILY PRN 08/16/17 08/16/17 Nasal [place]] Gabapentin 600 mg PO QID 08/16/17 08/16/17 Ibuprofen [Motrin] 600 mg PO TID PRN 08/16/17 08/16/17 Loperamide HCl [Imodium A-D] 2 mg PO TID PRN 08/16/17 08/16/17 Morphine Sulfate ER [Ms Contin 60 mg PO Q12HR 08/16/17 08/16/17 60Mg] QUEtiapine FUMARATE [SEROquel] 25 mg PO HS 01/04/18 01/04/18 clonazePAM [KlonoPIN] 0.5 mg PO DAILY 08/16/17 08/16/17 Allergies Allergy/AdvReac Type Severity Reaction Status Date / Time escitalopram oxalate Allergy Rash/Hives Verified 08/16/17 14:02 [From Lexapro] Review of Systems ROS Statement: Those systems with pertinent positive or pertinent negative responses have been documented in the HPI. ROS Other: All systems not noted in ROS Statement are negative. Past Medical History Past Medical History: GERD/Reflux Additional Past Medical History / Comment(s): pain clinic treatment, back pain, ARTHRITIS,SPINAL STENOSIS,SCOLIOSIS, SPONDYLOSIS, DDD, BULGIG DISCS, OINCHED NERVES. HAS HAD LOOSE TO WATERYS TOOLS SINCE GASTRIC SX UNLESS SHE TAKES HER PAIN PILLS THAT BIND HER A BIT. History of Any Multi-Drug Resistant Organisms: None Reported Past Surgical History: Bariatric Surgery, Tubal Ligation Additional Past Surgical History / Comment(s): NAMRATA EN Y GASTRIC BYPASS Additional Past Anesthesia/Blood Transfusion Reaction / Comment(s): SON HAD REACTION TO ANESTHESIA AND WAS ON A VENT-FAMILY WAS TESTED Past Psychological History: Anxiety, Depression Smoking Status: Current every day smoker Past Alcohol Use History: Daily Past Drug Use History: Prescription Drug Abuse - Past Family History Son(s) Additional Family Medical History / Comment(s): SON HAD PROBLEM WITH ANESTHESIA WAS ON A VENT-FAMILY WAS TESTED Mother Family Medical History: Myocardial Infarction ([place]) Father Family Medical History: Cancer, Prostate Disorder Additional Family Medical History / Comment(s): prostate cancer Brother(s) Additional Family Medical History / Comment(s): lung General Exam - General Exam Comments Initial Comments: GENERAL: The patient is well nourished and well hydrated. VITAL SIGNS: Heart rate, blood pressure, respiratory rate reviewed as recorded in nurse's notes. EYES: Pupils are round and reactive. Extraocular movements are intact. No conjunctival / lid redness or swelling. ENT: No external evidence of injury, swelling, or ecchymosis. Airway is patent. Throat is clear. NECK: Nontender. No swelling or evidence of injury. No subcutaneous emphysema. Trachea is midline. No thyroid mass. HEART: Regular rate and rhythm. Good peripheral pulses. LUNGS/CHEST: Breath sounds clear and equal bilaterally. No rales, rhonchi, or wheezes. No ecchymosis, subcutaneous emphysema, or tenderness. ABDOMEN: Abdomen soft without tenderness. No palpable masses or organomegaly. No peritoneal signs. No abdominal wall swelling or ecchymosis. EXTREMITIES: No extremity tenderness. Normal muscle tone and function. There is some mild tenderness present to the perithoracic region of her spine. NEUROLOGIC: Sensation is grossly intact. Cranial nerve exam reveals face is symmetrical, tongue is midline, speech is clear. SKIN: No abrasions or ecchymosis is noted. No induration or masses noted. PSYCHIATRIC: Alert and oriented. Somewhat bizarre behavior as she is only interested in obtaining narcotics. She is in no distress upon distraction. Limitations: no limitations Course Vital Signs 08/16/17 08/16/17 12:50 14:38 Temperature 97.9 F Pulse Rate 94 99 Respiratory 20 18 Rate Blood Pressure 108/63 120/59 O2 Sat by Pulse 96 96 Oximetry Medical Decision Making - Medical Decision Making The patient was seen and examined. All diagnostics were reviewed. The case is discussed with the office of commercial litigation attorney Bill who apparently is her power of commercial litigation attorney per patient. He apparently is out of town but his legal administrative secretary is quite involved in this situation. She relates that they are in charge of her medication dispensing. She relates that she had filled her medications for morphine this past week on . She then filled the Springer on Sunday. All of the morphine was gone when she was there on Sunday and it should've lasted her until the next . She apparently took all of the morphine when she was not supposed to. She also relates that the paramedics found multiple bottles of empty vodka all over the apartment. She relates that she has a significant problem with narcotic and alcohol abuse. It is not felt as though she should receive any further narcotics through the emergency department and will be discharged. The breath alcohol test was found to be 150. She is counseled extensively regarding alcohol use/abuse and narcotic use/ abuse. She does relate to me that she is in charge of psychiatric and substance abuse counseling program in [place]. 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 Nevertheless, she is still counseled regarding alcohol and narcotic abuse and it is not felt as though she should be receiving any further narcotics. It is felt as though she does have a significant problem in regard to alcohol narcotic abuse. She is watched for several hours and will be discharged when sober. The legal administrative secretary of the commercial litigation attorney relates that they are obtaining a locking medication dispensing box for her home so that she will be unable to abuse her medications in the future. Disposition Clinical Impression: Chronic back pain, Narcotic abuse, Alcohol abuse, Alcohol intoxication Disposition: HOME SELF-CARE Condition: Fair Instructions: Narcotic Abuse (ED), Alcohol Intoxication (ED), Abuse of Alcohol (ED), Chronic Back Pain (ED) Referrals: Mehdi Varela DO [Primary Care Provider] - 1-2 days Time of Disposition: 13:09
[2017-08-16] MEDS ORDERED: ACETAMINOPHEN TAB 500 MG TAB PO STA (14:42)
[2017-08-16 16:39] VITALS: BP 124/70; PULSE 90; RESP 20; TEMP 97.5
== END 2017-08-16 16:02 | disposition home or self-care (01) ==
LOC: EC 12:37
DX: G89.29 Other chronic pain (principal); M54.9 Dorsalgia, unspecified; F11.10 Opioid abuse, uncomplicated; F10.129 Alcohol abuse with intoxication, unspecified; F32.9 Major depressive disorder, single episode, unspecified; F41.9 Anxiety disorder, unspecified; F17.200 Nicotine dependence, unspecified, uncomplicated; Z79.899 Other long term (current) drug therapy; Z79.891 Long term (current) use of opiate analgesic; Z88.8 Allergy status to other drugs, medicaments and biological substances
CPT/HCPCS: 82075; 99284; 96372; J1885

== ENCOUNTER 2017-10-19 06:23 | Emergency (ER) | payer MEDICARE, BC ==
--- NOTE | 2017-10-19 07:42 | ED ---
General Adult HPI - General Chief complaint: Psychiatric Symptoms Stated complaint: ETOH,mental health Time Seen by Provider: 10/19/17 07:08 Source: patient, EMS, RN notes reviewed, old records reviewed Mode of arrival: EMS Limitations: altered mental status - History of Present Illness Initial comments: 71-year-old female presents with alcohol intoxication and uncooperative behavior. Patient has history of chronic back pain. She states she has been out of her medication. She also admits to drinking a large amount of alcohol. She denies suicidal ideation but states "she has broken, she just wants her pain to go away. Patient does have a public guardian. She is quite intoxicated at the time of my evaluation. She will be reassessed when more sober. - Related Data Home Medications Medication Instructions Recorded Confirmed DULoxetine HCL [Cymbalta] 60 mg PO BID 12/18/13 10/19/17 Loratadine [Claritin] 10 mg PO DAILY 09/27/15 10/19/17 HYDROcodone/APAP 10-325MG [[place] 1 tab PO BID PRN 01/09/17 10/19/17 10-325] Fluticasone Nasal [place] [Flonase 2 spr EA NOSTRIL DAILY PRN 08/16/17 10/19/17 Nasal [place]] Gabapentin 600 mg PO QID 08/16/17 10/19/17 Ibuprofen [Motrin] 600 mg PO TID PRN 08/16/17 10/19/17 Loperamide HCl [Imodium A-D] 2 mg PO TID PRN 08/16/17 10/19/17 Morphine Sulfate ER [Ms Contin 60 mg PO Q12HR 08/16/17 10/19/17 60Mg] QUEtiapine FUMARATE [SEROquel] 25 mg PO BID 08/16/17 10/19/17 Cyanocobalamin [Vitamin B-12 1,000 mcg SQ WEEKLY 10/19/17 10/19/17 Injection] Ergocalciferol [Vitamin D2] 50,000 unit PO Q7D 10/19/17 10/19/17 Furosemide [Lasix] 40 mg PO DAILY 10/19/17 10/19/17 Potassium Chloride [Klor-Con 10] 10 meq PO DAILY 10/19/17 10/19/17 Allergies Allergy/AdvReac Type Severity Reaction Status Date / Time escitalopram oxalate Allergy Rash/Hives Verified 08/16/17 14:02 [From Lexapro] Review of Systems ROS Statement: Those systems with pertinent positive or pertinent negative responses have been documented in the HPI. ROS Other: All systems not noted in ROS Statement are negative. Past Medical History Past Medical History: GERD/Reflux Additional Past Medical History / Comment(s): pain clinic treatment, back pain, ARTHRITIS,SPINAL STENOSIS,SCOLIOSIS, SPONDYLOSIS, DDD, BULGIG DISCS, OINCHED NERVES. HAS HAD LOOSE TO WATERYS TOOLS SINCE GASTRIC SX UNLESS SHE TAKES HER PAIN PILLS THAT BIND HER A BIT. History of Any Multi-Drug Resistant Organisms: None Reported Past Surgical History: Bariatric Surgery, Tubal Ligation Additional Past Surgical History / Comment(s): NAMRATA EN Y GASTRIC BYPASS Additional Past Anesthesia/Blood Transfusion Reaction / Comment(s): SON HAD REACTION TO ANESTHESIA AND WAS ON A VENT-FAMILY WAS TESTED Past Psychological History: Anxiety, Depression Smoking Status: Current every day smoker Past Alcohol Use History: Daily Past Drug Use History: Prescription Drug Abuse - Past Family History Son(s) Additional Family Medical History / Comment(s): SON HAD PROBLEM WITH ANESTHESIA WAS ON A VENT-FAMILY WAS TESTED Mother Family Medical History: Myocardial Infarction ([place]) Father Family Medical History: Cancer, Prostate Disorder Additional Family Medical History / Comment(s): prostate cancer Brother(s) Additional Family Medical History / Comment(s): lung General Exam Limitations: altered mental status General appearance: alert, appears intoxicated Head exam: Present: atraumatic, normocephalic Eye exam: Present: normal appearance, PERRL Neck exam: Present: normal inspection. Absent: tenderness, meningismus Respiratory exam: Present: normal lung sounds bilaterally. Absent: respiratory distress Cardiovascular Exam: Present: regular rate, normal rhythm GI/Abdominal exam: Present: soft. Absent: distended, tenderness Extremities exam: Present: normal inspection, normal capillary refill. Absent: pedal edema Neurological exam: Present: alert. Absent: motor sensory deficit Psychiatric exam: Present: agitated, anxious Skin exam: Present: warm, dry, intact. Absent: cyanosis, diaphoretic Course Vital Signs 10/19/17 10/19/17 10/19/17 06:25 12:39 15:36 Temperature 98.4 F Pulse Rate 88 98 81 Respiratory 19 18 16 Rate Blood Pressure 110/61 109/68 118/74 O2 Sat by Pulse 100 98 97 Oximetry - Reevaluation(s) Reevaluation #1: 10/19/17 12:48 Case discussed with the patient's best friend who comes to visit her the emergency department. According to her friend she has been clean for approximately one year. She states she drank to cope with her pain. She does have chronic back pain and sees pain management. Patient states she sometimes has suicidal thoughts but is confident she would never do anything about it. Reevaluation #2: 10/19/17 16:27 10/19/17 17:28 Medical Decision Making - Medical Decision Making 79-year-old female presents with alcohol intoxication, chronic pain, and concern for suicidal ideation. She is medically cleared in the emergency department, she was evaluated by EPS, it is felt that this is primarily a substance abuse issue, there is no need for further psychiatric care at this time. Patient will be discharged home. She is given outpatient substance abuse referral information the ER. She will be discharged with her daughter-in- law. Please follow up with painter bottom for pain control medications. - Lab Data Result diagrams: 10/19/17 07:20 10/19/17 07:20 Lab Results 10/19/17 10/19/17 10/19/17 Range/Units 07:20 07:20 07:28 WBC 5.2 (3.8-10.6) k/uL RBC 4.44 (3.80-5.40) m/uL Hgb 13.9 (11.4-16.0) gm/dL Hct 44.1 (34.0-46.0) % MCV 99.5 (80.0-100.0) fL MCH 31.4 (25.0-35.0) pg MCHC 31.5 (31.0-37.0) g/dL RDW 14.7 (11.5-15.5) % Plt Count 493 H (150-450) k/uL Neutrophils % 63 % Lymphocytes % 27 % Monocytes % 7 % Eosinophils % 1 % Basophils % 0 % Neutrophils # 3.3 (1.3-7.7) k/uL Lymphocytes # 1.4 (1.0-4.8) k/uL Monocytes # 0.4 (0-1.0) k/uL Eosinophils # 0.0 (0-0.7) k/uL Basophils # 0.0 (0-0.2) k/uL Macrocytosis Slight Sodium 148 H (137-145) mmol/L Potassium 4.4 (3.5-5.1) mmol/L Chloride 113 H (98-107) mmol/L Carbon Dioxide 25 (22-30) mmol/L Anion Gap 10 mmol/L BUN 7 (7-17) mg/dL Creatinine 0.47 L (0.52-1.04) mg/dL Est GFR (CKD-EPI)AfAm >90 (>60 ml/min/1.73 sqM) Est GFR (CKD-EPI)NonAf >90 (>60 ml/min/1.73 sqM) Glucose 104 H (74-99) mg/dL Calcium 9.0 (8.4-10.2) mg/dL Total Bilirubin 0.3 (0.2-1.3) mg/dL AST 25 (14-36) U/L ALT 21 (9-52) U/L Alkaline Phosphatase 105 (38-126) U/L Total Protein 6.9 (6.3-8.2) g/dL Albumin 3.8 (3.5-5.0) g/dL Urine Opiates Screen Detected H (NotDetected) Ur Oxycodone Screen Not Detected (NotDetected) Urine Methadone Screen Not Detected (NotDetected) Ur Propoxyphene Screen Not Detected (NotDetected) Ur Barbiturates Screen Not Detected (NotDetected) U Tricyclic Antidepress Not Detected (NotDetected) Ur Phencyclidine Scrn Not Detected (NotDetected) Ur Amphetamines Screen Not Detected (NotDetected) U Methamphetamines Scrn Not Detected (NotDetected) U Benzodiazepines Scrn Not Detected (NotDetected) Urine Cocaine Screen Not Detected (NotDetected) U Marijuana (THC) Screen Not Detected (NotDetected) Serum Alcohol 246 mg/dL Disposition Clinical Impression: Depression, Alcoholic intoxication, Chronic, continuous use of opioids Disposition: HOME SELF-CARE Condition: Good Instructions: Polysubstance Abuse (ED), Alcohol Intoxication (ED), Depression ( ED) Additional Instructions: Postoperative primary care physician and painter [facility]. Referrals: None,Stated [Primary Care Provider] - 1-2 days Time of Disposition: 17:29
[2017-10-19 07:53] LABS: Basophils % (A) 0 %; Eosinophils % (A) 1 %; HCT 44.1 % (34.0-46.0); HGB 13.9 gm/dL (11.4-16.0); Lymphocytes # (A) 1.4 k/uL (1.0-4.8); Lymphocytes % (A) 27 %; MCH 31.4 pg (25.0-35.0); MCHC 31.5 g/dL (31.0-37.0); MCV 99.5 fL (80.0-100.0); Macrocytosis Slight; Mean Platelet Volume 6.8; Monocytes # (A) 0.4 k/uL (0-1.0); Monocytes % (A) 7 %; Neutrophils # (A) 3.3 k/uL (1.3-7.7); Neutrophils % (A) 63 %; Platelet Count 493 k/uL (150-450); RBC 4.44 m/uL (3.80-5.40); RDW 14.7 % (11.5-15.5); WBC 5.2 k/uL (3.8-10.6)
[2017-10-19 08:03] LABS: ALT 21 U/L (9-52); AST 25 U/L (14-36); Albumin 3.8 g/dL (3.5-5.0); Alkaline Phosphatase 105 U/L (38-126); Anion Gap 10 mmol/L; Blood Urea Nitrogen 7 mg/dL (7-17); Carbon Dioxide 25 mmol/L (22-30); Chloride 113 mmol/L (98-107); Glucose 104 mg/dL (74-99); Potassium 4.4 mmol/L (3.5-5.1); Sodium 148 mmol/L (137-145); Total Bilirubin 0.3 mg/dL (0.2-1.3); Total Protein 6.9 g/dL (6.3-8.2)
[2017-10-19 08:14] LABS: Amphetamine Screen,Urine Not Detected (NotDetected); Barbiturate Screen,Urine Not Detected (NotDetected); Benzodiazepines Screen,Urine Not Detected (NotDetected); Cocaine Screen,Urine Not Detected (NotDetected); Methadone Screen, Urine Not Detected (NotDetected); Opiate Screen,Urine Detected (NotDetected); Oxycodone Screen, Urine Not Detected (NotDetected); Phencyclidine Screen,Urine Not Detected (NotDetected); Tricyclic Antidepressant,Urine Not Detected (NotDetected); Urn Cannabinoid Scrn Not Detected (NotDetected)
[2017-10-19 08:18] LABS: Alcohol 246 mg/dL
[2017-10-19] MEDS ORDERED: SODIUM CHLORIDE 0.9% 500 ML IV ONE (08:46)
[2017-10-19] MEDS ORDERED: HYDROcodone/APAP 5-325MG 1 EACH TAB PO STA (14:44)
[2017-10-19] MEDS: MORPHINE SULFATE 4 MG/ML SYRINGE IVP ONE ×2 (14:58→16:41)
[2017-10-19 15:36] VITALS: RESP 16
[2017-10-19 18:00] VITALS: BP 118/68; PULSE 75; TEMP 97.8
== END 2017-10-19 17:58 | disposition home or self-care (01) ==
LOC: EC 06:23
DX: F10.129 Alcohol abuse with intoxication, unspecified (principal); F32.9 Major depressive disorder, single episode, unspecified; F11.90 Opioid use, unspecified, uncomplicated; R41.82 Altered mental status, unspecified; F41.9 Anxiety disorder, unspecified; R45.1 Restlessness and agitation; G89.29 Other chronic pain; F17.200 Nicotine dependence, unspecified, uncomplicated; Z79.899 Other long term (current) drug therapy; Z88.8 Allergy status to other drugs, medicaments and biological substances
CPT/HCPCS: 82075; 36415; 80053; 85025; 80306; 80320; 99285; 96374; 96376; 96361; J2270

== ENCOUNTER → 2017-10-24 | Outpatient (CLI) | payer MEDICARE, BC ==
--- NOTE | 2017-10-24 12:28 | US ---
EXAMINATION TYPE: US venous doppler duplex LE RT DATE OF EXAM: 10/24/2017 12:16 PM COMPARISON: NONE CLINICAL HISTORY: 71-year-old female R60.0 Localized edema. Pt states recent right leg/ankle swelling SIDE PERFORMED: Right TECHNIQUE: The lower extremity deep venous system is examined utilizing real time linear array sonog isabel with graded compression, doppler sonography and color-flow sonography. FINDINGS: VESSELS IMAGED: External Iliac Vein (EIV) Common Femoral Vein Deep Femoral Vein Greater Saphenous Vein * Femoral Vein Popliteal Vein Small Saphenous Vein * Proximal Calf Veins (* superficial vessels) Right Leg: Negative for DVT Results called to Caryn at Dr's office at time of exam IMPRESSION: No evidence for DVT within the right lower extremity imaged from the groin to the upper calf.
== END | disposition home or self-care (01) ==
LOC: RADUSWWP 11:53
PROVIDERS: ATTEND Family Medicine
DX: R60.0 Localized edema (principal)

== ENCOUNTER → 2017-11-19 | Outpatient (CLI) | payer MEDICARE, BC ==
--- NOTE | 2017-11-19 18:55 | ECHOF ---
Referral Reason:R60.0 Localized Edema MEASUREMENTS -------- HEIGHT: 152.4 cm WEIGHT: 59.0 kg BP: 129/64 IVSd: 1.0 cm (0.6 - 1.1) LVIDd: 2.7 cm (3.9 - 5.3) LVPWd: 1.1 cm (0.6 - 1.1) IVSs: 1.2 cm LVIDs: 1.9 cm LVPWs: 1.5 cm LA Diam: 2.7 cm (2.7 - 3.8) RVIDd: 2.8 cm (< 3.3) LAESV Index (A-L): 14.13 ml/m Ao Diam: 3.5 cm (2.0 - 3.7) AV Cusp: 0.8 cm (1.5 - 2.6) EPSS: 0.6 cm MV E Eb: 0.72 m/s MV DecT: 226 ms MV A Eb: 0.99 m/s MV E/A Ratio: 0.73 AV maxP.53 mmHg AV meanP.51 mmHg RAP: 5.00 mmHg RVSP: 48.84 mmHg MV EF SLOPE: 20.37 mm/s (70 - 150) MV EXCURSION: 8.74 mm (> 18.000) FINDINGS -------- Sinus rhythm. This was a technically adequate study. The left ventricular size is normal. There is borderline concentric left ventricular hypertrophy. Overall left ventricular systolic function is normal with, an EF between 55 - 60 %. The right ventricle is normal in size. Normal LA size by volume 22+/-6 ml/m2. The right atrium is normal in size. Mobile interatrial septum. There is mild aortic valve sclerosis. There is mild aortic stenosis present. Peak/mean gradient a cross the Aortic Valve is 12.53mmHg / 5.51mmHg. The mitral valve leaflets are mildly thickened. Mild mitral annular calcification present. There is trace to mild mitral regurgitation. Xyjb-yw-[id number] tricuspid regurgitation present. There is moderate pulmonary hypertension. The r ight ventricular systolic pressure, as measured by Doppler, is 48.84mmHg. The pulmonic valve was not well visualized. The aortic root size is normal. Normal inferior vena cava with normal inspiratory collapse consistent with estimated right atrial pre ssure of 5 mmHg. There is no pericardial effusion. CONCLUSIONS -------- 1. Sinus rhythm. 2. This was a technically adequate study. 3. The left ventricular size is normal. 4. There is borderline concentric left ventricular hypertrophy. 5. Overall left ventricular systolic function is normal with, an EF between 55 - 60 %. 6. The right ventricle is normal in size. 7. Normal LA size by volume 22+/-6 ml/m2. 8. The right atrium is normal in size. 9. Mobile interatrial septum. 10. There is mild aortic valve sclerosis. 11. There is mild aortic stenosis present. 12. Peak/mean gradient across the Aortic Valve is 12.53mmHg / 5.51mmHg. 13. The mitral valve leaflets are mildly thickened. 14. Mild mitral annular calcification present. 15. There is trace to mild mitral regurgitation. 16. Yuqh-jr-korjusim tricuspid regurgitation present. 17. There is moderate pulmonary hypertension. 18. The right ventricular systolic pressure, as measured by Doppler, is 48.84mmHg. 19. The pulmonic valve was not well visualized. 20. The aortic root size is normal. 21. Normal inferior vena cava with normal inspiratory collapse consistent with estimated right atrial pressure of 5 mmHg. 22. There is no pericardial effusion. TEST ANALYST: Kandis Butts RDCS
== END | disposition home or self-care (01) ==
LOC: RADECHMAIN 12:45
PROVIDERS: ATTEND Family Medicine
DX: I35.0 Nonrheumatic aortic (valve) stenosis (principal); I27.20 Pulmonary hypertension, unspecified; I05.9 Rheumatic mitral valve disease, unspecified; Q21.1 Atrial septal defect
CPT/HCPCS: 93306

== ENCOUNTER 2017-12-12 09:39 | Inpatient (IN) | payer MEDICARE, BC ==
[2017-12-12] MEDS ORDERED: IBUPROFEN 600 MG TAB PO STA (09:46)
[2017-12-12] MEDS ORDERED: ACETAMINOPHEN TAB 500 MG TAB PO STA (09:46)
--- NOTE | 2017-12-12 09:55 | ED ---
General Adult HPI - General Stated complaint: Altered mental status Time Seen by Provider: 12/12/17 09:40 Source: RN notes reviewed - History of Present Illness Initial comments: This is a 72-year-old female who was found outside without her pants and somewhat confused to time. Patient herself knows the year but not the month she knows the hospital but she states she doesn't want to be here and she has no recent fever. She denies any pain. Patient denies any difficulty breathing. Patient denies any headache. Patient denies any numbness weakness. Patient denies any chest pain patient denies any shortness of breath difficulty breathing. Patient denies abdominal pain patient denies nausea vomiting diarrhea. Patient denies any recent fever chills. Police state recently she was found sleeping in a grocery cart and today she was found outside in the parking lot with her pants off. They have petition the patient. - Related Data Home Medications Medication Instructions Recorded Confirmed DULoxetine HCL [Cymbalta] 60 mg PO BID 12/18/13 12/12/17 Loratadine [Claritin] 10 mg PO DAILY 09/27/15 12/12/17 HYDROcodone/APAP 10-325MG [[place] 1 tab PO BID PRN 01/09/17 12/12/17 10-325] Fluticasone Nasal [place] [Flonase 2 spr EA NOSTRIL DAILY PRN 08/16/17 12/12/17 Nasal [place]] Ibuprofen [Motrin] 600 mg PO TID PRN 08/16/17 12/12/17 Loperamide HCl [Imodium A-D] 2 mg PO TID PRN 08/16/17 12/12/17 Morphine Sulfate ER [Ms Contin 60 mg PO BID 08/16/17 12/12/17 60Mg] QUEtiapine FUMARATE [SEROquel] 25 mg PO BID 08/16/17 12/12/17 Cyanocobalamin [Vitamin B-12 1,000 mcg SQ WEEKLY 10/19/17 12/12/17 Injection] Ergocalciferol [Vitamin D2] 50,000 unit PO Q7D 10/19/17 12/12/17 Furosemide [Lasix] 40 mg PO DAILY 10/19/17 12/12/17 Potassium Chloride [Klor-Con 10] 10 meq PO DAILY 10/19/17 12/12/17 Gabapentin [Neurontin] 400 mg PO QID 12/12/17 12/12/17 Olopatadine HCl [Pataday] 1 drop BOTH EYES BID 12/12/17 12/12/17 SILVER sulfADIAZINE Cream 1 applic TOPICAL BID 12/12/17 12/12/17 [Silvadene 1% Cream] Allergies Allergy/AdvReac Type Severity Reaction Status Date / Time escitalopram oxalate Allergy Rash/Hives Verified 08/16/17 14:02 [From Lexapro] Review of Systems ROS Statement: Those systems with pertinent positive or pertinent negative responses have been documented in the HPI. ROS Other: All systems not noted in ROS Statement are negative. Past Medical History Past Medical History: GERD/Reflux Additional Past Medical History / Comment(s): pain clinic treatment, back pain, ARTHRITIS,SPINAL STENOSIS,SCOLIOSIS, SPONDYLOSIS, DDD, BULGIG DISCS, OINCHED NERVES. HAS HAD LOOSE TO WATERYS TOOLS SINCE GASTRIC SX UNLESS SHE TAKES HER PAIN PILLS THAT BIND HER A BIT. History of Any Multi-Drug Resistant Organisms: None Reported Past Surgical History: Bariatric Surgery, Tubal Ligation Additional Past Surgical History / Comment(s): NAMRATA EN Y GASTRIC BYPASS Additional Past Anesthesia/Blood Transfusion Reaction / Comment(s): SON HAD REACTION TO ANESTHESIA AND WAS ON A VENT-FAMILY WAS TESTED Past Psychological History: Anxiety, Depression Smoking Status: Current every day smoker Past Alcohol Use History: Daily Past Drug Use History: Prescription Drug Abuse - Past Family History Son(s) Additional Family Medical History / Comment(s): SON HAD PROBLEM WITH ANESTHESIA WAS ON A VENT-FAMILY WAS TESTED Mother Family Medical History: Myocardial Infarction (MD) Father Family Medical History: Cancer, Prostate Disorder Additional Family Medical History / Comment(s): prostate cancer Brother(s) Additional Family Medical History / Comment(s): lung General Exam - General Exam Comments Initial Comments: GENERAL: Patient is well-developed and well-nourished. Patient is nontoxic and well- hydrated and is in no acute distress. I took the temperature and the patient and it was 100.5. ENT: Neck is soft and supple. No significant lymphadenopathy is noted. Oropharynx is clear. Dry mucous membranes. Neck has full range of motion without eliciting any pain. There is no thyroid enlargement and no masses were felt. EYES: The sclera were anicteric and conjunctiva were pink and moist. Extraocular movements were intact and pupils were equal round and reactive to light. Eyelids were unremarkable. PULMONARY: Unlabored respirations. Good breath sounds bilaterally. No audible rales rhonchi or wheezing was noted. CARDIOVASCULAR: There is a regular rate and rhythm without any murmurs gallops or rubs. ABDOMEN: Soft and nontender with normal bowel sounds. No palpable organomegaly was noted. There is no palpable pulsatile mass. SKIN: Skin is clear with no lesions or rashes and otherwise unremarkable. NEUROLOGIC: Patient is alert and oriented 2. Cranial nerves II through XII are grossly intact. Motor and sensory are also intact. Normal speech, volume and content. Symmetrical smile. MUSCULOSKELETAL: Normal extremities with adequate strength and full range of motion. No lower extremity swelling or edema. No calf tenderness. LYMPHATICS: No significant lymphadenopathy is noted PSYCHIATRIC: Normal psychiatric evaluation. Course Vital Signs 12/12/17 12/12/17 12/12/17 09:42 10:45 12:00 Temperature 100.5 F H 99.0 F Pulse Rate 101 H 91 89 Respiratory 18 18 18 Rate Blood Pressure 124/68 119/59 114/60 O2 Sat by Pulse 96 96 95 Oximetry Medical Decision Making - Medical Decision Making EKG shows normal sinus rhythm 89 bpm OR interval is 126 QRS is 104 QT interval 394 QTC is 479. Patient's EKG shows no acute abnormalities noted Chest x-ray shows no acute abnormality. Patient remains somewhat confused but insists she's not having any medical problems. I started the patient on Rocephin because the fever and moderate bacteria in the urine. I started the patient on D5 with 2 A of sodium bicarb because the rhabdomyolysis I consult nephrology. I spoke with Dr. Willard about admitting the patient for altered mental status he was in agreement. Social service consult will be done as well - Lab Data Result diagrams: 12/12/17 09:55 12/12/17 09:55 Lab Results 12/12/17 12/12/17 12/12/17 Range/Units 09:55 09:55 09:55 WBC 13.4 H (3.8-10.6) k/uL RBC 3.73 L (3.80-5.40) m/uL Hgb 11.9 (11.4-16.0) gm/dL Hct 36.9 (34.0-46.0) % MCV 98.7 (80.0-100.0) fL MCH 31.9 (25.0-35.0) pg MCHC 32.4 (31.0-37.0) g/dL RDW 14.6 (11.5-15.5) % Plt Count 293 (150-450) k/uL Neutrophils % 87 % Lymphocytes % 3 % Monocytes % 7 % Eosinophils % 0 % Basophils % 0 % Neutrophils # 11.6 H (1.3-7.7) k/uL Lymphocytes # 0.4 L (1.0-4.8) k/uL Monocytes # 0.9 (0-1.0) k/uL Eosinophils # 0.0 (0-0.7) k/uL Basophils # 0.0 (0-0.2) k/uL Manual Slide Review Performed RBC Morphology Normal PT (9.0-12.0) sec INR (<1.2) APTT (22.0-30.0) sec Sodium 145 (137-145) mmol/L Potassium 3.8 (3.5-5.1) mmol/L Chloride 110 H (98-107) mmol/L Carbon Dioxide 20 L (22-30) mmol/L Anion Gap 15 mmol/L BUN 45 H (7-17) mg/dL Creatinine 1.70 H (0.52-1.04) mg/dL Est GFR (CKD-EPI)AfAm 34 (>60 ml/min/1.73 sqM) Est GFR (CKD-EPI)NonAf 30 (>60 ml/min/1.73 sqM) Glucose 103 H (74-99) mg/dL Plasma Lactic Acid [place] (0.7-2.0) mmol/L Calcium 8.6 (8.4-10.2) mg/dL Total Bilirubin 0.6 (0.2-1.3) mg/dL AST 452 H (14-36) U/L ALT 146 H (9-52) U/L Alkaline Phosphatase 111 (38-126) U/L Total Creatine Kinase 7617 H (30-135) U/L CK-MB (CK-2) 149.0 H* (0.0-2.4) ng/mL CK-MB (CK-2) Rel Index Troponin I 0.189 H* (0.000-0.034) ng/mL Total Protein 5.7 L (6.3-8.2) g/dL Albumin 3.1 L (3.5-5.0) g/dL Urine Color Urine Appearance (Clear) Urine pH (5.0-8.0) Ur Specific [place] (1.001-1.035) Urine Protein (Negative) Urine Glucose (UA) (Negative) Urine Ketones (Negative) Urine Blood (Negative) Urine Nitrite (Negative) Urine Bilirubin (Negative) Urine Urobilinogen (<2.0) mg/dL Ur Leukocyte Esterase (Negative) Urine RBC (0-5) /hpf Urine WBC (0-5) /hpf Urine Bacteria (None) /hpf Hyaline Casts (0-2) /lpf Urine Mucus (None) /hpf Influenza Type A RNA (Not Detectd) Influenza Type B (PCR) (Not Detectd) 12/12/17 12/12/17 12/12/17 Range/Units 09:55 09:55 09:55 WBC (3.8-10.6) k/uL RBC (3.80-5.40) m/uL Hgb (11.4-16.0) gm/dL Hct (34.0-46.0) % MCV (80.0-100.0) fL MCH (25.0-35.0) pg MCHC (31.0-37.0) g/dL RDW (11.5-15.5) % Plt Count (150-450) k/uL Neutrophils % % Lymphocytes % % Monocytes % % Eosinophils % % Basophils % % Neutrophils # (1.3-7.7) k/uL Lymphocytes # (1.0-4.8) k/uL Monocytes # (0-1.0) k/uL Eosinophils # (0-0.7) k/uL Basophils # (0-0.2) k/uL Manual Slide Review RBC Morphology PT 10.2 (9.0-12.0) sec INR 1.0 (<1.2) APTT 23.7 (22.0-30.0) sec Sodium (137-145) mmol/L Potassium (3.5-5.1) mmol/L Chloride (98-107) mmol/L Carbon Dioxide (22-30) mmol/L Anion Gap mmol/L BUN (7-17) mg/dL Creatinine (0.52-1.04) mg/dL Est GFR (CKD-EPI)AfAm (>60 ml/min/1.73 sqM) Est GFR (CKD-EPI)NonAf (>60 ml/min/1.73 sqM) Glucose (74-99) mg/dL Plasma Lactic Acid Claude 1.5 (0.7-2.0) mmol/L Calcium (8.4-10.2) mg/dL Total Bilirubin (0.2-1.3) mg/dL AST (14-36) U/L ALT (9-52) U/L Alkaline Phosphatase (38-126) U/L Total Creatine Kinase (30-135) U/L CK-MB (CK-2) (0.0-2.4) ng/mL CK-MB (CK-2) Rel Index Troponin I (0.000-0.034) ng/mL Total Protein (6.3-8.2) g/dL Albumin (3.5-5.0) g/dL Urine Color Urine Appearance (Clear) Urine pH (5.0-8.0) Ur Specific [place] (1.001-1.035) Urine Protein (Negative) Urine Glucose (UA) (Negative) Urine Ketones (Negative) Urine Blood (Negative) Urine Nitrite (Negative) Urine Bilirubin (Negative) Urine Urobilinogen (<2.0) mg/dL Ur Leukocyte Esterase (Negative) Urine RBC (0-5) /hpf Urine WBC (0-5) /hpf Urine Bacteria (None) /hpf Hyaline Casts (0-2) /lpf Urine Mucus (None) /hpf Influenza Type A RNA Not Detected (Not Detectd) Influenza Type B (PCR) Not Detected (Not Detectd) 12/12/17 Range/Units 09:55 WBC (3.8-10.6) k/uL RBC (3.80-5.40) m/uL Hgb (11.4-16.0) gm/dL Hct (34.0-46.0) % MCV (80.0-100.0) fL MCH (25.0-35.0) pg MCHC (31.0-37.0) g/dL RDW (11.5-15.5) % Plt Count (150-450) k/uL Neutrophils % % Lymphocytes % % Monocytes % % Eosinophils % % Basophils % % Neutrophils # (1.3-7.7) k/uL Lymphocytes # (1.0-4.8) k/uL Monocytes # (0-1.0) k/uL Eosinophils # (0-0.7) k/uL Basophils # (0-0.2) k/uL Manual Slide Review RBC Morphology PT (9.0-12.0) sec INR (<1.2) APTT (22.0-30.0) sec Sodium (137-145) mmol/L Potassium (3.5-5.1) mmol/L Chloride (98-107) mmol/L Carbon Dioxide (22-30) mmol/L Anion Gap mmol/L BUN (7-17) mg/dL Creatinine (0.52-1.04) mg/dL Est GFR (CKD-EPI)AfAm (>60 ml/min/1.73 sqM) Est GFR (CKD-EPI)NonAf (>60 ml/min/1.73 sqM) Glucose (74-99) mg/dL Plasma Lactic Acid Claude (0.7-2.0) mmol/L Calcium (8.4-10.2) mg/dL Total Bilirubin (0.2-1.3) mg/dL AST (14-36) U/L ALT (9-52) U/L Alkaline Phosphatase (38-126) U/L Total Creatine Kinase (30-135) U/L CK-MB (CK-2) (0.0-2.4) ng/mL CK-MB (CK-2) Rel Index Troponin I (0.000-0.034) ng/mL Total Protein (6.3-8.2) g/dL Albumin (3.5-5.0) g/dL Urine Color Yellow Urine Appearance Clear (Clear) Urine pH 6.0 (5.0-8.0) Ur Specific [place] 1.017 (1.001-1.035) Urine Protein 1+ H (Negative) Urine Glucose (UA) Negative (Negative) Urine Ketones Trace H (Negative) Urine Blood Moderate H (Negative) Urine Nitrite Negative (Negative) Urine Bilirubin Negative (Negative) Urine Urobilinogen <2.0 (<2.0) mg/dL Ur Leukocyte Esterase Negative (Negative) Urine RBC 1 (0-5) /hpf Urine WBC 3 (0-5) /hpf Urine Bacteria Moderate H (None) /hpf Hyaline Casts 20 H (0-2) /lpf Urine Mucus Rare H (None) /hpf Influenza Type A RNA (Not Detectd) Influenza Type B (PCR) (Not Detectd) Critical Care Time Critical Care Time: Yes Total Critical Care Time: 35 Disposition Clinical Impression: Altered mental status, Urinary tract infection, Rhabdomyolysis Disposition: ADMITTED IP TO THIS HOSP Referrals: None,Stated [REFERRING] - 1-2 days Time of Disposition: 12:18
[2017-12-12] MEDS: SODIUM CHLORIDE 0.9% 500 ML IV SCH ×2 (10:05→11:15)
[2017-12-12 10:40] LABS: Basophils % (A) 0 %; Eosinophils % (A) 0 %; HCT 36.9 % (34.0-46.0); HGB 11.9 gm/dL (11.4-16.0); Lymphocytes # (A) 0.4 k/uL (1.0-4.8); Lymphocytes % (A) 3 %; MCH 31.9 pg (25.0-35.0); MCHC 32.4 g/dL (31.0-37.0); MCV 98.7 fL (80.0-100.0); Mean Platelet Volume 7.6; Monocytes # (A) 0.9 k/uL (0-1.0); Monocytes % (A) 7 %; Neutrophils # (A) 11.6 k/uL (1.3-7.7); Neutrophils % (A) 87 %; Platelet Count 293 k/uL (150-450); RBC 3.73 m/uL (3.80-5.40); RDW 14.6 % (11.5-15.5); WBC 13.4 k/uL (3.8-10.6)
[2017-12-12 10:46] LABS: Appearance,Urine Clear (Clear); Bacteria,Urine Moderate /hpf; Bilirubin,Urine Negative (Negative); Blood,Urine Moderate (Negative); Color,Urine Yellow; Glucose,Urine (UA) Negative (Negative); Hyaline Casts,Urine 20 /lpf (0-2); Ketones,Urine Trace (Negative); Leukocyte Esterase,Urine Negative (Negative); Mucus,Urine Rare /hpf; Nitrite,Urine Negative (Negative); Protein,Urine 1+ (Negative); RBC,Urine 1 /hpf (0-5); Specific Gravity,Urine 1.017 (1.001-1.035); Urobilinogen,Urine <2.0 mg/dL (<2.0); WBC,Urine 3 /hpf (0-5)
[2017-12-12 10:49] LABS: Albumin 3.1 g/dL (3.5-5.0); Calcium 8.6 mg/dL (8.4-10.2); Potassium 3.8 mmol/L (3.5-5.1); Total Bilirubin 0.6 mg/dL (0.2-1.3); Total Protein 5.7 g/dL (6.3-8.2)
[2017-12-12 10:51] LABS: Partial Thromboplastin Time 23.7 sec (22.0-30.0); Prothrombin Time 10.2 sec (9.0-12.0)
[2017-12-12] MEDS ORDERED: SODIUM BICARB 8.4% 50 ML VIAL (1 MEQ/ML) ONE (11:05)
[2017-12-12] MEDS ORDERED: DEXTROSE 10% IN WATER 1,000 ML BAG IV ONE (11:05)
[2017-12-12 11:40] LABS: Troponin I 0.189 ng/mL (0.000-0.034)
--- NOTE | 2017-12-12 12:13 | XR ---
EXAMINATION TYPE: XR chest 2V DATE OF EXAM: 12/12/2017 COMPARISON: 07/05/2016 HISTORY: Difficulty breathing TECHNIQUE: Frontal and lateral views of the chest are obtained. FINDINGS: Patient positioning is suboptimal. This likely attributable mediastinal widening, likely r elated. There is no focal air space opacity, pleural effusion, or pneumothorax seen. There is pulmona ry hyperinflation is seen on the prior. The osseous structures are intact. Hilar vascular engorgement may relate to underlying pulmonary artery hypertension. Mild right acromioclavicular arthropathy and left glenohumeral arthropathy are noted. IMPRESSION: Mediastinal widening in comparison the prior is likely relative and related to patient p ositioning. No acute pulmonary process.
[2017-12-12] MEDS ORDERED: cefTRIAXone IN SWFI 1,000 MG/10 ML SYRINGE IVP STA (12:21)
[2017-12-12] MEDS: DEXTROSE 5% IN WATER 1,000 ML with SODIUM BICARB (1 MEQ/ML) 100 ML IV SCH ×2 (13:10→21:56)
[2017-12-12] MEDS ORDERED: FLUTICASONE 50MCG/SPRAY NASAL 16GM EA NOSTRIL PRN (17:12)
--- NOTE | 2017-12-12 17:22 | P.HPIM ---
History of Present Illness This is a pleasant 72 years old lady with past medical history of GERD scoliosis and spinal stenosis, spondylolisthesis, bulging disc, pinched nerve, status post bariatric surgery was petitioned by police because she was found in the groins altered mental status and taken her close of, when I went to see the patient she was alert awake motion machine in the hospital and when asked her why urine hospital she said because there was incoherent and she states she she' s been drinking last drink about 2 days ago but she was incoherent over 3 days she said things, patient complains from generalized pain in her extremities and Sunday, she denies headache, no numbness, no specific weakness, no difficulty breathing or chest pain, no nausea vomiting or diarrhea Not sure if she has dysuria or change in urinary frequency The emergency room patient was found to have rhabdomyolysis with CPK around 7617 , troponin I 0.18, EKG shows heart rate of [address]-T changes Review of Systems 14 point system review were negative except was mentioned in the HPI Past Medical History Past Medical History: GERD/Reflux Additional Past Medical History / Comment(s): pain clinic treatment, back pain, ARTHRITIS,SPINAL STENOSIS,SCOLIOSIS, SPONDYLOSIS, DDD, BULGIG DISCS, OINCHED NERVES. HAS HAD LOOSE TO WATERYS TOOLS SINCE GASTRIC SX UNLESS SHE TAKES HER PAIN PILLS THAT BIND HER A BIT. History of Any Multi-Drug Resistant Organisms: None Reported Past Surgical History: Bariatric Surgery, Tubal Ligation Additional Past Surgical History / Comment(s): NAMRATA EN Y GASTRIC BYPASS Additional Past Anesthesia/Blood Transfusion Reaction / Comment(s): SON HAD REACTION TO ANESTHESIA AND WAS ON A VENT-FAMILY WAS TESTED Past Psychological History: Anxiety, Depression Smoking Status: Current every day smoker Past Alcohol Use History: Daily Past Drug Use History: Prescription Drug Abuse - Past Family History Son(s) Additional Family Medical History / Comment(s): SON HAD PROBLEM WITH ANESTHESIA WAS ON A VENT-FAMILY WAS TESTED Mother Family Medical History: Myocardial Infarction (MS) Father Family Medical History: Cancer, Prostate Disorder Additional Family Medical History / Comment(s): prostate cancer Brother(s) Additional Family Medical History / Comment(s): lung Medications and Allergies Home Medications Medication Instructions Recorded Confirmed Type DULoxetine HCL [Cymbalta] 60 mg PO BID 12/18/13 12/12/17 History Loratadine [Claritin] 10 mg PO DAILY 09/27/15 12/12/17 History HYDROcodone/APAP 10-325MG [[place] 1 tab PO BID PRN 01/09/17 12/12/17 History 10-325] Fluticasone Nasal [place] [Flonase 2 spr EA NOSTRIL DAILY PRN 08/16/17 12/12/17 History Nasal [place]] Ibuprofen [Motrin] 600 mg PO TID PRN 08/16/17 12/12/17 History Loperamide HCl [Imodium A-D] 2 mg PO TID PRN 08/16/17 12/12/17 History Morphine Sulfate ER [Ms Contin 60 mg PO BID 08/16/17 12/12/17 History 60Mg] QUEtiapine FUMARATE [SEROquel] 25 mg PO BID 08/16/17 12/12/17 History Cyanocobalamin [Vitamin B-12 1,000 mcg SQ WEEKLY 10/19/17 12/12/17 History Injection] Ergocalciferol [Vitamin D2] 50,000 unit PO Q7D 10/19/17 12/12/17 History Furosemide [Lasix] 40 mg PO DAILY 10/19/17 12/12/17 History Potassium Chloride [Klor-Con 10] 10 meq PO DAILY 10/19/17 12/12/17 History Gabapentin [Neurontin] 400 mg PO QID 12/12/17 12/12/17 History Olopatadine HCl [Pataday] 1 drop BOTH EYES BID 12/12/17 12/12/17 History SILVER sulfADIAZINE Cream 1 applic TOPICAL BID 12/12/17 12/12/17 History [Silvadene 1% Cream] Allergies Allergy/AdvReac Type Severity Reaction Status Date / Time escitalopram oxalate Allergy Rash/Hives Verified 08/16/17 14:02 [From Lexapro] Physical Exam Vitals: Vital Signs Temp Pulse Resp BP Pulse Ox 12/12/17 16:00 96 16 102/61 95 12/12/17 14:00 83 18 107/64 96 12/12/17 12:00 99.0 F 89 18 114/60 95 12/12/17 10:45 91 18 119/59 96 12/12/17 09:42 100.5 F H 101 H 18 124/68 96 Intake and Output 12/12/17 12/12/17 12/12/17 06:59 14:59 22:59 Other: Weight 68.039 kg Results CBC & Chem 7: 12/12/17 09:55 12/12/17 09:55 Labs: Abnormal Lab Results - Last 24 Hours (Table) 12/12/17 12/12/17 12/12/17 Range/Units 09:55 09:55 09:55 WBC 13.4 H (3.8-10.6) k/uL RBC 3.73 L (3.80-5.40) m/uL Neutrophils # 11.6 H (1.3-7.7) k/uL Lymphocytes # 0.4 L (1.0-4.8) k/uL Chloride 110 H (98-107) mmol/L Carbon Dioxide 20 L (22-30) mmol/L BUN 45 H (7-17) mg/dL Creatinine 1.70 H (0.52-1.04) mg/dL Glucose 103 H (74-99) mg/dL AST 452 H (14-36) U/L ALT 146 H (9-52) U/L Total Creatine Kinase 7617 H (30-135) U/L CK-MB (CK-2) 149.0 H* (0.0-2.4) ng/mL Troponin I 0.189 H* (0.000-0.034) ng/mL Total Protein 5.7 L (6.3-8.2) g/dL Albumin 3.1 L (3.5-5.0) g/dL Urine Protein (Negative) Urine Ketones (Negative) Urine Blood (Negative) Urine Bacteria (None) /hpf Hyaline Casts (0-2) /lpf Urine Mucus (None) /hpf 12/12/17 Range/Units 09:55 WBC (3.8-10.6) k/uL RBC (3.80-5.40) m/uL Neutrophils # (1.3-7.7) k/uL Lymphocytes # (1.0-4.8) k/uL Chloride (98-107) mmol/L Carbon Dioxide (22-30) mmol/L BUN (7-17) mg/dL Creatinine (0.52-1.04) mg/dL Glucose (74-99) mg/dL AST (14-36) U/L ALT (9-52) U/L Total Creatine Kinase (30-135) U/L CK-MB (CK-2) (0.0-2.4) ng/mL Troponin I (0.000-0.034) ng/mL Total Protein (6.3-8.2) g/dL Albumin (3.5-5.0) g/dL Urine Protein 1+ H (Negative) Urine Ketones Trace H (Negative) Urine Blood Moderate H (Negative) Urine Bacteria Moderate H (None) /hpf Hyaline Casts 20 H (0-2) /lpf Urine Mucus Rare H (None) /hpf Microbiology - Last 24 Hours (Table) 12/12/17 09:55 Urine Culture - Preliminary Urine,Catheterized
[2017-12-12 18:18] LABS: Calcium 8.2 mg/dL (8.4-10.2); Potassium 3.2 mmol/L (3.5-5.1)
[2017-12-12] MEDS: THIAMINE 100 MG/ML 2 ML VIAL IVP SCH (18:27)
[2017-12-12] MEDS: GABAPENTIN 400 MG CAP PO SCH (18:27)
[2017-12-12] MEDS: DULoxetine HCL 60 MG CAPSULE.DR PO SCH ×2 (18:27→21:54)
[2017-12-12] MEDS: ERGOCALCIFEROL 50,000 UNIT CAP PO SCH (18:28)
[2017-12-12 20:51] LABS: Glucose,Whole Blood 127 mg/dL (75-99)
[2017-12-12] MEDS: MORPHINE SULFATE ER 60 MG TABLET PO SCH (21:53)
[2017-12-12] MEDS: QUEtiapine 25 MG TAB PO SCH (21:54)
[2017-12-12] MEDS: KETOTIFEN 0.025% OPHTH DROPS 5 ML BTL BOTH EYES SCH (21:54)
[2017-12-12] MEDS: SODIUM CHLORIDE 0.9% 1,000 ML IV SCH (21:54)
[2017-12-13 06:01] LABS: Glucose,Whole Blood 247 mg/dL (75-99)
[2017-12-13] MEDS: SODIUM CHLORIDE 0.9% 1,000 ML IV SCH ×4 (06:44→14:35)
[2017-12-13] MEDS ORDERED: VANCOMYCIN IV PER PHARMACY 1 EACH MISC MISCELLANE PRN (07:44)
[2017-12-13] MEDS ORDERED: VANCOMYCIN 1,000 MG in SODIUM CHLORIDE 0.9% 250 ML IVPB ONE (09:00)
[2017-12-13] MEDS: KETOTIFEN 0.025% OPHTH DROPS 5 ML BTL BOTH EYES SCH ×2 (09:49→21:13)
[2017-12-13] MEDS: DULoxetine HCL 60 MG CAPSULE.DR PO SCH (09:49)
[2017-12-13] MEDS: GABAPENTIN 400 MG CAP PO SCH (09:49)
[2017-12-13] MEDS: cefTRIAXone IN SWFI 1,000 MG/10 ML SYRINGE IVP SCH (09:49)
[2017-12-13] MEDS: MORPHINE SULFATE ER 60 MG TABLET PO SCH (09:50)
[2017-12-13] MEDS: THIAMINE 100 MG/ML 2 ML VIAL IVP SCH (09:50)
[2017-12-13] MEDS: QUEtiapine 25 MG TAB PO SCH ×2 (09:50→21:13)
--- NOTE | 2017-12-13 10:44 | P.CN ---
Psychiatric Consult - . Consult date: 12/13/17 Consult:: 12/13/17 10:23 Patient was seen for a psych consult regarding altered mental status. Patient is/was on Cymbalta 60 mg twice a day [place] 05/15/2025 twice a day when necessary [place] Contin 60 mg twice a day Seroquel 25 mg twice a day Neurontin 400 mg 4 times a day precisely 6 white him and D to Imodium when necessary ibuprofen when necessary Claritin etc. Lab report shows leukocytosis, decreased red cell count, low potassium elevated BUN creatinine high glucose levels high AST and ALT with very high CK, high CK-MB and troponin, decreased total protein and albumin, several abnormalities in the urinalysis with negative leukocyte Estrace, EKG shows ST abnormality and chest x-ray shows hilar engorgement suggestive of pulmonary arterial hypertension. I'm not able to locate the blood gas results. Patient was seen lying down in her bed. She is polite and cooperative. She gets hyperactive episodically. Her speech is fairly spontaneous, has dysarthria , loose association irrelevance, perseveration etc. she is not able to provide good history. She said she is not suicidal or homicidal. She admits that she was confused but she insists that she did not go outside the house without clothing. She is able to say she is at [facility]. She said this is June 2018. When she was asked to name the presidents, she went on repeating doctor Dr. Smith several times and then she said Dr. Massey. Eventually she said it is Trump, she hates him and that is why she didn't remember his name. Assessment: Delirium secondary to multiple physical problems including infection , probable AR, possible right-sided failure, impaired liver and renal functions , probably multiple medications for this 72-year-old debilitated person. Suggestion: I would suggest Cymbalta and Neurontin narcotics etc. be tapered off , Seroquel to be discontinued since narcotics are not recommended for more than 7 days of use except in terminal cases including cancer. Use of such a high dose of narcotics in this debilitated age group, especially in combination of Cymbalta,Seroquel and Neurontin may cause further morbidity including falls, injury and possible . Continue the medical management of physical problems as recommended by the literature and research findings.
[2017-12-13 11:06] LABS: Anion Gap 9 mmol/L; Blood Urea Nitrogen 30 mg/dL (7-17); Calcium 8.2 mg/dL (8.4-10.2); Carbon Dioxide 23 mmol/L (22-30); Chloride 109 mmol/L (98-107); Creatine Kinase 1327 U/L (30-135); Glucose 87 mg/dL (74-99); Sodium 141 mmol/L (137-145)
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
[2017-12-13 11:30] LABS: Glucose,Whole Blood 94 mg/dL (75-99)
[2017-12-13] MEDS ORDERED: MULTIVITAMINS, THERA 1 EACH TAB PO SCH (12:00)
[2017-12-13] MEDS ORDERED: Potassium Replacement Protocol 1 EACH MISC MISCELLANE PRN (12:06)
[2017-12-13] MEDS: FOLIC ACID 1 MG TAB PO SCH (12:54)
[2017-12-13] MEDS: POTASSIUM CHLORIDE ER 20 MEQ TAB.ER PO SCH ×4 (12:54→20:16)
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
[2017-12-13] MEDS ORDERED: POTASSIUM CHLORIDE ER 20 MEQ TAB.ER PO ONE (15:00)
[2017-12-13 16:59] LABS: Glucose,Whole Blood 87 mg/dL (75-99)
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
[2017-12-13] MEDS: MORPHINE SULFATE ER 30 MG TABLET PO SCH (20:15)
[2017-12-13] MEDS ORDERED: VANCOMYCIN 1,000 MG in SODIUM CHLORIDE 0.9% 250 ML IVPB SCH (21:00)
[2017-12-13] MEDS: GABAPENTIN 100 MG CAP PO SCH (21:12)
[2017-12-13] MEDS: DULoxetine HCL 30 MG CAPSULE.DR PO SCH (21:13)
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
[2017-12-14 07:22] LABS: Anion Gap 11 mmol/L; Blood Urea Nitrogen 16 mg/dL (7-17); Calcium 8.2 mg/dL (8.4-10.2); Carbon Dioxide 19 mmol/L (22-30); Chloride 116 mmol/L (98-107); Creatine Kinase 796 U/L (30-135); Glucose 71 mg/dL (74-99); Potassium 3.7 mmol/L (3.5-5.1); Sodium 146 mmol/L (137-145)
[2017-12-14] MEDS: KETOTIFEN 0.025% OPHTH DROPS 5 ML BTL BOTH EYES SCH ×2 (07:45→21:44)
[2017-12-14] MEDS: GABAPENTIN 100 MG CAP PO SCH ×2 (07:45→21:45)
[2017-12-14] MEDS: DULoxetine HCL 30 MG CAPSULE.DR PO SCH ×2 (07:45→21:45)
[2017-12-14] MEDS: cefTRIAXone IN SWFI 1,000 MG/10 ML SYRINGE IVP SCH (07:45)
[2017-12-14] MEDS: MORPHINE SULFATE ER 30 MG TABLET PO SCH ×2 (07:46→21:44)
[2017-12-14] MEDS: QUEtiapine 25 MG TAB PO SCH ×2 (07:46→21:45)
[2017-12-14] MEDS: THIAMINE 100 MG/ML 2 ML VIAL IVP SCH (07:46)
[2017-12-14] MEDS: SODIUM CHLORIDE 0.9% 1,000 ML IV SCH ×3 (08:58→21:45)
[2017-12-14] MEDS: LORazepam 2 MG/ML INJ IV PRN ×2 (10:36→19:39)
[2017-12-14] MEDS: MULTIVITAMINS, THERA 1 EACH TAB PO SCH (10:52)
[2017-12-14] MEDS: FOLIC ACID 1 MG TAB PO SCH (10:52)
[2017-12-14] MEDS ORDERED: LORazepam 2 MG/ML INJ IV PRN ×3 (11:07)
--- NOTE | 2017-12-14 11:12 | P.PN ---
Subjective Principal diagnosis: Patient is seen for follow-up for acute kidney injury which was mainly prerenal. Patient is maintained on IV fluids her renal function is improved significantly with creatinine down from 1.7 mg/dL on admission to 0.45 mg/dL today. Patient remains mildly confused. Her CK level is at 796 it is down from 1327 on admission. Objective - Vital Signs Vital signs: Vital Signs Temp 97 F L 12/14/17 07:43 Pulse 88 12/14/17 10:50 Resp 16 12/14/17 10:50 BP 143/75 12/14/17 10:50 Pulse Ox 95 12/14/17 10:50 Intake & Output 12/13/17 12/14/17 12/14/17 18:59 06:59 18:59 Intake Total 490 780 Balance 490 780 Weight 63.6 kg Intake: Intake, IV Titration 250 300 Amount Sodium Chloride 0.9% 1, 300 000 ml @ 100 mls/hr IV . Q10H [facility] Rx#:[id number] Vancomycin 1,000 mg In 250 Sodium Chloride 0.9% 250 ml @ 125 mls/hr IVPB Q12H [facility] Rx#:[id number] Oral 240 480 Other: Voiding Method Toilet Toilet Toilet Diaper Diaper Diaper # Voids 2 - Exam On examination patient is comfortable blood pressure 143/75 heart rate 88/m she is afebrile Patient is confused Examination of the heart S1 and S2 Exertion lungs bilateral breath sounds are heard Abdomen is soft nontender Exertion lower extremity shows no significant edema. - Labs CBC & Chem 7: 12/12/17 09:55 12/14/17 06:27 Labs: Abnormal Lab Results - Last 24 Hours (Table) 12/13/17 12/13/17 12/13/17 Range/Units 08:29 17:03 17:03 Sodium (137-145) mmol/L Potassium 3.0 L* 3.2 L (3.5-5.1) mmol/L Chloride 109 H (98-107) mmol/L Carbon Dioxide (22-30) mmol/L BUN 30 H (7-17) mg/dL Creatinine (0.52-1.04) mg/dL Glucose (74-99) mg/dL Calcium 8.2 L (8.4-10.2) mg/dL Creatine Kinase 1327 H (30-135) U/L Troponin I 0.040 H* (0.000-0.034) ng/mL 12/14/17 Range/Units 06:27 Sodium 146 H (137-145) mmol/L Potassium (3.5-5.1) mmol/L Chloride 116 H (98-107) mmol/L Carbon Dioxide 19 L (22-30) mmol/L BUN (7-17) mg/dL Creatinine 0.45 L (0.52-1.04) mg/dL Glucose 71 L (74-99) mg/dL Calcium 8.2 L (8.4-10.2) mg/dL Creatine Kinase 796 H (30-135) U/L Troponin I (0.000-0.034) ng/mL Microbiology - Last 24 Hours (Table) 12/13/17 08:29 Blood Culture - Preliminary Blood No Growth after 24 hours 12/12/17 09:55 Urine Culture - Final Urine,Catheterized Enterobacter aerogenes 12/12/17 09:55 Blood Culture Gram Stain - Preliminary Blood Blood Culture - Preliminary Coagulase Negative Staph Assessment and Plan Plan: Assessment 1. Acute kidney injury prerenal currently resolved with IV hydration 2. Urine tract infection with urine culture growing Enterobacter aerogenes is 3. Coagulase-negative staph bacteremia 4. Rhabdo my lysis currently improving 5. Encephalopathy, mainly metabolic the Cymbalta has been discontinued and patient remains onset a couple we'll continue to monitor. 6. Hypokalemia status post replacement currently improved Plan Continue with IV fluids. Replace potassium and repeat labs in a.m. okay to use vancomycin
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
--- NOTE | 2017-12-14 13:33 | ECHOF ---
Referral Reason:abn trop MEASUREMENTS -------- HEIGHT: 165.1 cm WEIGHT: 63.5 kg BP: 143/75 RVIDd: 3.5 cm (< 3.3) IVSd: 1.0 cm (0.6 - 1.1) LVIDd: 4.1 cm (3.9 - 5.3) LVPWd: 1.0 cm (0.6 - 1.1) IVSs: 1.5 cm LVIDs: 2.7 cm LVPWs: 1.6 cm LA Diam: 3.1 cm (2.7 - 3.8) Ao Diam: 3.4 cm (2.0 - 3.7) MV EXCURSION: 14.642 mm (> 18.000) MV EF SLOPE: 30 mm/s (70 - 150) EPSS: 0.3 cm MV E Eb: 0.69 m/s MV DecT: 354 ms MV A Eb: 0.82 m/s MV E/A Ratio: 0.84 RAP: 5.00 mmHg RVSP: 49.32 mmHg FINDINGS -------- Sinus rhythm. This was a technically adequate study. The left ventricular size is normal. Left ventricular wall thickness is normal. Overall left vent ricular systolic function is normal with, an EF between 60 - 65 %. The right ventricle is mildly enlarged. The left atrial size is normal. The right atrium is normal in size. There is mild aortic valve sclerosis. Mild mitral annular calcification present. Mild tricuspid regurgitation present. There is moderate pulmonary hypertension. The right ventric ular systolic pressure, as measured by Doppler, is 49.32mmHg. The pulmonic valve was not well visualized. The aortic root size is normal. The inferior vena cava is mildly dilated. IVC Not well visulized. CONCLUSIONS -------- 1. Sinus rhythm. 2. This was a technically adequate study. 3. The left ventricular size is normal. 4. Left ventricular wall thickness is normal. 5. Overall left ventricular systolic function is normal with, an EF between 60 - 65 %. 6. The right ventricle is mildly enlarged. 7. The left atrial size is normal. 8. The right atrium is normal in size. 9. There is mild aortic valve sclerosis. 10. Mild mitral annular calcification present. 11. Mild tricuspid regurgitation present. 12. There is moderate pulmonary hypertension. 13. The right ventricular systolic pressure, as measured by Doppler, is 49.32mmHg. 14. The pulmonic valve was not well visualized. 15. The aortic root size is normal. 16. The inferior vena cava is mildly dilated. 17. IVC Not well visulized. RESEARCH LEADER: Kandis Butts RDCS
--- NOTE | 2017-12-14 17:02 | PN ---
PROGRESS NOTE DATE OF SERVICE: 12/14/17 REASON FOR FOLLOWUP: 1. Positive blood culture with Staph epi likely contamination. 2. Urinary tract infection. INTERVAL HISTORY: The patient is afebrile. She remains to be slightly weak, lethargic, sleepy, and unable to provide any history. No nausea, vomiting or any diarrhea per the nursing staff. PHYSICAL EXAMINATION: Blood pressure 122/70 with a pulse of 90, temperature of 97.4. She is 93% on room air. General description is an elderly female, lying in bed in no distress. Respiratory system: Unlabored breathing. Clear to auscultation anteriorly. Heart S1, S2. Regular rate and rhythm. Abdomen soft, no tenderness. LABS: BUN of 15, creatinine 0.45. Blood cultures initially with coag-negative Staph with urine with bacteria aeruginosa. DIAGNOSTIC IMPRESSION AND PLAN: 1. Patient with mental status changes more likely secondary to urinary tract infection. Urine with Enterobacter currently covered with Rocephin switching to oral on discharge. 2. Positive blood culture with coagulase negative staph likely contamination. Vancomycin discontinued. Blood culture has been negative. MMODL / IJN: [id number] /
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
[2017-12-15] MEDS: LORazepam 2 MG/ML INJ IV PRN ×3 (02:43→21:16)
[2017-12-15] MEDS: SODIUM CHLORIDE 0.9% 1,000 ML IV SCH (06:08)
[2017-12-15 06:51] LABS: Basophils % (A) 0 %; Eosinophils # (A) 0.2 k/uL (0-0.7); Eosinophils % (A) 2 %; HCT 37.4 % (34.0-46.0); HGB 11.5 gm/dL (11.4-16.0); Hypochromasia Moderate; Lymphocytes # (A) 1.3 k/uL (1.0-4.8); Lymphocytes % (A) 15 %; MCH 31.5 pg (25.0-35.0); MCHC 30.8 g/dL (31.0-37.0); Macrocytosis Slight; Mean Platelet Volume 7.6; Monocytes % (A) 11 %; Neutrophils % (A) 68 %; Platelet Count 302 k/uL (150-450); RBC 3.66 m/uL (3.80-5.40); RDW 14.6 % (11.5-15.5); WBC 8.7 k/uL (3.8-10.6)
[2017-12-15 07:28] LABS: Anion Gap 11 mmol/L; Blood Urea Nitrogen 8 mg/dL (7-17); Carbon Dioxide 17 mmol/L (22-30); Chloride 119 mmol/L (98-107); Glucose 72 mg/dL (74-99); Potassium 3.5 mmol/L (3.5-5.1); Sodium 147 mmol/L (137-145)
[2017-12-15] MEDS: KETOTIFEN 0.025% OPHTH DROPS 5 ML BTL BOTH EYES SCH ×2 (08:29→21:16)
[2017-12-15] MEDS: MORPHINE SULFATE ER 30 MG TABLET PO SCH ×2 (08:29→21:17)
[2017-12-15] MEDS: GABAPENTIN 100 MG CAP PO SCH ×2 (08:29→21:16)
[2017-12-15] MEDS: THIAMINE 100 MG/ML 2 ML VIAL IVP SCH (08:30)
[2017-12-15] MEDS: QUEtiapine 25 MG TAB PO SCH ×2 (08:30→21:16)
[2017-12-15] MEDS: DULoxetine HCL 30 MG CAPSULE.DR PO SCH ×2 (08:30→21:16)
[2017-12-15] MEDS: cefTRIAXone IN SWFI 1,000 MG/10 ML SYRINGE IVP SCH (08:42)
[2017-12-15 08:45] LABS: C. trachomatis,PCR Negative (Neg,Equiv); Chlamydia trachomatis Source Urine; N. gonorrhoeae,PCR Negative (Neg,Equiv); Neisseria Source Urine
[2017-12-15] MEDS: FOLIC ACID 1 MG TAB PO SCH (11:35)
[2017-12-15] MEDS: MULTIVITAMINS, THERA 1 EACH TAB PO SCH (11:35)
--- NOTE | 2017-12-15 16:15 | PN ---
PROGRESS NOTE Patient is seen for followup for acute kidney injury. Her renal function has improved significantly, although her sodium is slightly on the high side. Patient remains on IV fluids. She remains confused as well. PHYSICAL EXAMINATION: Blood pressure this morning 167/109, heart rate 93 per minute. Patient is afebrile. Examination of the heart, S1, S2. Examination of the lungs, bilateral breath sounds are heard. Abdomen is soft, nontender. Examination of the lower extremities shows no evidence of edema. SWEEPING COMPOUND BLENDER exam is grossly intact. Patient moving all 4 extremities, but she remains confused. LABS: Show sodium 147, potassium 3.5, BUN 8, serum creatinine 0.39, hemoglobin 11.5 g/dL. ASSESSMENT: 1. Acute kidney injury, currently resolved. 2. Hyperkalemia. Patient was maintained on normal saline which is now discontinued. I will start her on a small amount of D5W since she has not been eating well. 3. Hypokalemia, status post replacement. 4. Rhabdomyolysis, currently improved. 5. Encephalopathy, possibly med related. Patient had urinary tract infection and sepsis on initial admission. 6. There is a consideration for possible underlying ETOH withdrawal. 7. Urinary tract infection with urine culture growing Enterobacter aerogenes. PLAN: Start D5W at 50 mL an hour. Encourage increased oral intake. MMODL / IJN: [id number] /
[2017-12-15] MEDS: DEXTROSE 5% IN WATER 1,000 ML IV SCH (16:39)
[2017-12-16 06:44] LABS: Anion Gap 9 mmol/L; Blood Urea Nitrogen 5 mg/dL (7-17); Calcium 8.3 mg/dL (8.4-10.2); Carbon Dioxide 20 mmol/L (22-30); Chloride 116 mmol/L (98-107); Glucose 82 mg/dL (74-99); Potassium 3.2 mmol/L (3.5-5.1); Sodium 145 mmol/L (137-145)
[2017-12-16 06:57] LABS: Basophils % (A) 0 %; Eosinophils # (A) 0.2 k/uL (0-0.7); Eosinophils % (A) 2 %; Lymphocytes # (A) 1.5 k/uL (1.0-4.8); Lymphocytes % (A) 16 %; MCH 31.9 pg (25.0-35.0); MCHC 32.4 g/dL (31.0-37.0); MCV 98.6 fL (80.0-100.0); Mean Platelet Volume 7.5; Monocytes # (A) 0.7 k/uL (0-1.0); Monocytes % (A) 7 %; Neutrophils # (A) 7.1 k/uL (1.3-7.7); Neutrophils % (A) 71 %; Platelet Count 416 k/uL (150-450); RBC 3.75 m/uL (3.80-5.40); RDW 14.7 % (11.5-15.5); WBC 9.9 k/uL (3.8-10.6)
[2017-12-16] MEDS: cefTRIAXone IN SWFI 1,000 MG/10 ML SYRINGE IVP SCH (08:17)
[2017-12-16] MEDS: MORPHINE SULFATE ER 30 MG TABLET PO SCH ×2 (08:17→21:16)
[2017-12-16] MEDS: DULoxetine HCL 30 MG CAPSULE.DR PO SCH ×2 (08:18→21:15)
[2017-12-16] MEDS: QUEtiapine 25 MG TAB PO SCH ×2 (08:19→21:15)
[2017-12-16] MEDS: KETOTIFEN 0.025% OPHTH DROPS 5 ML BTL BOTH EYES SCH ×2 (08:19→21:15)
[2017-12-16] MEDS: GABAPENTIN 100 MG CAP PO SCH ×2 (08:19→21:16)
[2017-12-16] MEDS: THIAMINE 100 MG/ML 2 ML VIAL IVP SCH (08:19)
[2017-12-16] MEDS: LORazepam 2 MG/ML INJ IV PRN (11:34)
[2017-12-16] MEDS: FOLIC ACID 1 MG TAB PO SCH (11:35)
[2017-12-16] MEDS: MULTIVITAMINS, THERA 1 EACH TAB PO SCH (11:35)
[2017-12-16] MEDS ORDERED: POTASSIUM CHLORIDE ER 20 MEQ TAB.ER PO STA ×2 (11:36→18:31)
--- NOTE | 2017-12-16 13:01 | PN ---
PROGRESS NOTE Patient is seen for followup for acute kidney injury and hypernatremia. Her renal function has improved. Serum creatinine is down to 0.4 mg/dL. Serum sodium was at 147 yesterday. The patient is an currently on D5W at 50 mL an hour. The serum sodium is down to 145 today. The patient is sleeping and she is easily arousable. She had been confused. EXAMINATION: Blood pressure was 124/67, heart rate 80 per minute. Patient is afebrile. Examination of the heart: S1, S2. Examination lungs: Bilateral breath sounds are heard. Abdomen is soft, nontender. Examination lower extremities shows no evidence of edema. MEDICAL RECORD TRANSCRIBER exam is grossly intact. LABS: Sodium 145, potassium 3.2, chloride 116, CO2 is 20, BUN 5, serum creatinine 0.4. ASSESSMENT: 1. Hypernatremia, currently improved with D5W. 2. Acute kidney injury, now resolved, mainly prerenal. 3. Hypokalemia. Will replace. 4. Metabolic acidosis, currently improved. 5. Urinary tract infection with urine culture growing Enterobacter aerogenes. PLAN: Continue D5W for now. Continue to encourage increased oral intake. Replace potassium. MMODL / IJN: [id number] /
[2017-12-16 17:13] LABS: Glucose,Whole Blood 82 mg/dL (75-99)
[2017-12-16] MEDS: DEXTROSE 5% IN WATER 1,000 ML IV SCH (17:59)
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
--- NOTE | 2017-12-16 23:19 | PN ---
PROGRESS NOTE DATE OF SERVICE: 12/16/2017 REASON FOR FOLLOWUP: Urinary tract infection. INTERVAL HISTORY: The patient is afebrile. He is currently breathing comfortably, more awake and alert. No nausea. No abdominal pain or any diarrhea. EXAMINATION: Blood pressure 119/59 with a pulse of 87, temperature 97.4. She is 93% on room air. General description is an elderly female lying in bed in no distress. RESPIRATORY SYSTEM: Unlabored breathing, clear to auscultation anteriorly. HEART: S1, S2. Regular rate and rhythm. ABDOMEN: Soft, no tenderness . LABS: Hemoglobin 12.1, white count 9.9 with a BUN of 5, creatinine 0.40. Blood culture has been negative. Repeat initial Staph epi likely skin contamination. DIAGNOSTIC IMPRESSION AND PLAN: 1. Patient positive blood culture for contamination. Repeat blood culture negative the workup for the same. 2. Patient with Enterobacter urinary tract infection. The patient is on Rocephin and plan to finish therapy with oral Cipro for about a week. Continue supportive care. MMODL / IJN: [id number] /
[2017-12-17] MEDS: DEXTROSE 5% IN WATER 1,000 ML IV SCH (02:23)
[2017-12-17 09:08] LABS: Anion Gap 11 mmol/L; Blood Urea Nitrogen 5 mg/dL (7-17); Calcium 8.4 mg/dL (8.4-10.2); Carbon Dioxide 19 mmol/L (22-30); Chloride 114 mmol/L (98-107); Glucose 88 mg/dL (74-99); Potassium 3.7 mmol/L (3.5-5.1); Sodium 144 mmol/L (137-145)
[2017-12-17] MEDS: GABAPENTIN 100 MG CAP PO SCH ×2 (09:37→20:24)
[2017-12-17] MEDS: DULoxetine HCL 30 MG CAPSULE.DR PO SCH ×2 (09:37→20:24)
[2017-12-17] MEDS: KETOTIFEN 0.025% OPHTH DROPS 5 ML BTL BOTH EYES SCH ×2 (09:38→20:23)
[2017-12-17] MEDS: MORPHINE SULFATE ER 30 MG TABLET PO SCH ×2 (09:38→20:24)
[2017-12-17] MEDS: QUEtiapine 25 MG TAB PO SCH ×2 (09:39→20:24)
[2017-12-17] MEDS: THIAMINE 100 MG/ML 2 ML VIAL IVP SCH (09:40)
[2017-12-17] MEDS: cefTRIAXone IN SWFI 1,000 MG/10 ML SYRINGE IVP SCH (11:11)
[2017-12-17] MEDS: MULTIVITAMINS, THERA 1 EACH TAB PO SCH (14:12)
[2017-12-17] MEDS: FOLIC ACID 1 MG TAB PO SCH (14:12)
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
--- NOTE | 2017-12-17 16:41 | PN ---
PROGRESS NOTE DATE OF SERVICE: 12/17/2017. REASON FOR FOLLOWUP: Urinary tract infection, Enterobacter. INTERVAL HISTORY: The patient is afebrile. She is currently feeling better. Breathing comfortably. Denies having any chest pain, shortness of breath or cough. No abdominal pain. Wants to go home. EXAMINATION: Blood pressure 124/56, pulse of 87, temperature 97.7, she is 97% on room air. General description is an elderly female, lying in bed in no distress. RESPIRATORY SYSTEM: Unlabored breathing. Clear to auscultation anteriorly. HEART: S1, S2. Regular rate and rhythm. ABDOMEN: Soft, no tenderness. LABS: BUN of 5, creatinine 0.41. DIAGNOSTIC IMPRESSION AND PLAN: 1. Patient with Enterobacter urinary tract infection, currently on Rocephin. That can be transitioned to oral Cipro 500 mg b.i.d. for another 3 to 5 days to finish a course of therapy. 2. Positive blood culture with Staph epi contamination. Repeat blood culture negative. Currently of vancomycin. MMODL / IJN: [id number] /
--- NOTE | 2017-12-17 20:02 | PN ---
PROGRESS NOTE Patient is seen for followup for acute kidney injury and hypernatremia. Her renal function has improved. Creatinine is staying at about 0.4 mg/dL. The patient was maintained on D5W for hypernatremia. The fluids are now discontinued. She is eating fairly well. The patient also had urinary tract infection with Enterobacter aerogenes. PHYSICAL EXAMINATION: On examination today, blood pressure was 135/73, heart rate of 87 per minute. Patient is afebrile. Examination of the heart: S1, S2. Examination lungs: Bilateral breath sounds are heard. Abdomen is soft, nontender. Examination lower extremity shows no evidence of edema. SURGERY NURSE exam is grossly intact. LABS: Sodium 144, potassium 3.7, chloride 114. CO2 is 19, BUN 5, serum creatinine 0.4. ASSESSMENT: 1. Acute kidney injury, prerenal, currently resolved. 2. Hypernatremia associated with free water deficit, currently resolved. Patient is off of D5W. She is encouraged to maintain good free water intake. 3. Hypertension, currently better controlled. 4. Hypokalemia, status post replacement. 5. Rhabdomyolysis, now significantly improved. CK is down from 1327 to 140. PLAN: Continue to encourage increased free water intake, particularly fluids. Monitor electrolytes. Continue with potassium replacement. MMODL / IJN: [id number] /
[2017-12-18] MEDS: ACETAMINOPHEN TAB 325 MG TAB PO PRN ×2 (05:47→13:02)
[2017-12-18] MEDS: FOLIC ACID 1 MG TAB PO SCH (08:26)
[2017-12-18] MEDS: GABAPENTIN 100 MG CAP PO SCH ×2 (08:26→20:08)
[2017-12-18] MEDS: THIAMINE 100 MG/ML 2 ML VIAL IVP SCH (08:26)
[2017-12-18] MEDS: QUEtiapine 25 MG TAB PO SCH (08:27)
[2017-12-18] MEDS: MORPHINE SULFATE ER 30 MG TABLET PO SCH ×2 (08:27→20:08)
[2017-12-18] MEDS: DULoxetine HCL 30 MG CAPSULE.DR PO SCH (08:28)
[2017-12-18] MEDS: NICOTINE 21MG/24HR PATCH TRANSDERM SCH (08:28)
[2017-12-18] MEDS: cefTRIAXone IN SWFI 1,000 MG/10 ML SYRINGE IVP SCH (08:28)
[2017-12-18] MEDS: KETOTIFEN 0.025% OPHTH DROPS 5 ML BTL BOTH EYES SCH ×2 (08:28→20:09)
[2017-12-18] MEDS: MULTIVITAMINS, THERA 1 EACH TAB PO SCH (08:28)
--- NOTE | 2017-12-18 14:54 | PN ---
PROGRESS NOTE DATE OF SERVICE: 12/18/2017 REASON FOR FOLLOWUP: Enterobacter urinary tract infection. INTERVAL HISTORY: The patient is afebrile. He is currently breathing comfortably. Denies having any chest pain. Denies shortness of breath. No cough, no abdominal pain or any diarrhea. PHYSICAL EXAMINATION: Blood pressure is 133/81 with a pulse of 84, temperature 97.7, he is 98% on room air. General description is an elderly female lying in bed, in no distress. RESPIRATORY SYSTEM: Unlabored breathing, clear to auscultation anteriorly. HEART: S1, S2. Regular rate and rhythm. ABDOMEN: Soft, no tenderness LABS: No new labs have been obtained today. DIAGNOSTIC IMPRESSION AND PLAN: 1. Patient with Enterobacter urinary tract infection for which the patient did receive about 7 days of antibiotic therapy, should be enough and can be discontinued. 2. Patient with a positive blood culture, staph epi, likely skin contamination. No need for further therapy for the same. MMODL / IJN: [id number] /
--- NOTE | 2017-12-18 15:42 | P.CN ---
Psychiatric Consult - . Consult date: 12/18/17 Consult:: 12/18/17 15:30 Patient was seen for a psych consult regarding her medication and being hyperactive. Patient is still on Cymbalta 30 mg twice a day Seroquel 25 mg twice a day, Neurontin 200 mg twice a day and MS Contin 30 mg twice a day. Patient insists that she did not have any manic episodes in the past. But she thinks she may have been more happy on occasions. She denies abusing drugs and alcohol. But she said she may drink 3-4 glasses of wine socially once in a while. Currently she is polite friendly and cooperative. She is somewhat talkative, but, she does not have any flight of ideas or pressured speech. She does not show any increased motor activity. Her mood is cheerful and affect is appropriate to the thought content. She denies suicidal and homicidal thoughts. She denies hallucinations and delusional thinking. She said she wants 96[facility] of [facility], has [facility] [employer] etc. When the nurses checked it with [facility], apparently she is right and this is not a delusion. However she does not drive and takes either public transportation or her friends help her. She is oriented to place. She said today is November 28. She names the last 4 presidents as Mushtaq Chow and Nik. She is able to say 20 nickels make a dollar. But she said 35 nickels make a dollar 35. Her insight is fair and judgment appears to be somewhat impaired. She apparently has a guardian who handles all her affairs including [facility]. Assessment: Probable unspecified bipolar and related disorder F 31.9. She still has some cognitive deficits. Suggestion: Discontinue Cymbalta and Seroquel. Start her on the to do 20 mg a day, the dose can be adjusted as an outpatient. Neurontin at the current dose can be continued since it'll help with mood stabilization. Please schedule outpatient appointment with the psychiatrist within next 4-5 days. Continued use of narcotics is not recommended per regulations. However, she and her pain doctor can decide and take responsibility for any bad outcomes if they want to continue the narcotics. Patient should not be on antidepressants any more since she seems to have a hypomanic episode now and continued use of antidepressants may precipitate a full-blown manic episode and complicate the treatment.
--- NOTE | 2017-12-18 16:37 | P.CONS ---
History of Present Illness - Chief Complaint Gait disturbance - History of Present Illness I had the opportunity to see patient for inpatient rehab consultation with regard to gait disturbance. She was admitted to [facility] December 12 with mental status change and possible UTI. Patient apparently admitted to some alcoholic drinks a. I know her because of chronic pain management and she denies misusing or taking her medications wrong. Seen by psychiatry who notes delirium. Symmetric Dr. Barnett who notes acute kidney injury, nonoliguric renal failure, with rhabdomyolysis. Seen by OB for possible assaults, which patient denies. Seen by cardiology for elevated troponin. Chest x-ray demonstrates mediastinal widening. PT reports supervision for mobility, transfers, gait 175 feet with roller walker. OT prescribed. Previous functional history as elicited from patient: 72-year-old right-handed white female who is lives in a first-floor apartment, alone. Describes independent with own cooking, laundry, standing shower and gait with 4 wheeled walker[address] Does not drive lately due to a back pain. Denies alcohol or tobacco. Past Medical History Past Medical History: GERD/Reflux Additional Past Medical History / Comment(s): pain clinic treatment, back pain, ARTHRITIS,SPINAL STENOSIS,SCOLIOSIS, SPONDYLOSIS, DDD, BULGING DISCS, PINCHED NERVES. HAS HAD LOOSE TO WATERYS TOOLS SINCE GASTRIC SX UNLESS SHE TAKES HER PAIN PILLS THAT BIND HER A BIT. History of Any Multi-Drug Resistant Organisms: None Reported Past Surgical History: Bariatric Surgery, Tubal Ligation Additional Past Surgical History / Comment(s): NAMRATA EN Y GASTRIC BYPASS Past Anesthesia/Blood Transfusion Reactions: No Reported Reaction Additional Past Anesthesia/Blood Transfusion Reaction / Comm: SON HAD REACTION TO ANESTHESIA AND WAS ON A VENT-FAMILY WAS TESTED Past Psychological History: Anxiety, Depression Smoking Status: Light tobacco smoker Past Alcohol Use History: Daily Additional Past Alcohol Use History / Comment(s): HAS BEEN smoking on and off since a teenager, currently 2-3 cig per day, admits to occ glass of wine Past Drug Use History: Prescription Drug Abuse Additional Drug Use History / Comment(s): Legal guardian says the patient smokes cigarettes occasionally. Says she drinks alcohol heavily at times. He was unaware when she last had a drink but said it was most likely the day she was brought in to the hospital. Says she takes prescription pain medication but is unaware if she takes any other drugs. - Past Family History Son(s) Additional Family Medical History / Comment(s): SON HAD PROBLEM WITH ANESTHESIA WAS ON A VENT-FAMILY WAS TESTED Mother Family Medical History: Myocardial Infarction (VT) Father Family Medical History: Cancer, Prostate Disorder Additional Family Medical History / Comment(s): prostate cancer Brother(s) Additional Family Medical History / Comment(s): lung Medications and Allergies Home Medications Medication Instructions Recorded Confirmed Type DULoxetine HCL [Cymbalta] 60 mg PO BID 12/18/13 12/12/17 History Loratadine [Claritin] 10 mg PO DAILY 09/27/15 12/12/17 History HYDROcodone/APAP 10-325MG [[place] 1 tab PO BID PRN 01/09/17 12/12/17 History 10-325] Fluticasone Nasal [place] [Flonase 2 spr EA NOSTRIL DAILY PRN 08/16/17 12/12/17 History Nasal [place]] Ibuprofen [Motrin] 600 mg PO TID PRN 08/16/17 12/12/17 History Loperamide HCl [Imodium A-D] 2 mg PO TID PRN 08/16/17 12/12/17 History Morphine Sulfate ER [Ms Contin 60 mg PO BID 08/16/17 12/12/17 History 60Mg] QUEtiapine FUMARATE [SEROquel] 25 mg PO BID 08/16/17 12/12/17 History Cyanocobalamin [Vitamin B-12 1,000 mcg SQ WEEKLY 10/19/17 12/12/17 History Injection] Ergocalciferol [Vitamin D2] 50,000 unit PO Q7D 10/19/17 12/12/17 History Furosemide [Lasix] 40 mg PO DAILY 10/19/17 12/12/17 History Potassium Chloride [Klor-Con 10] 10 meq PO DAILY 10/19/17 12/12/17 History Gabapentin [Neurontin] 400 mg PO QID 12/12/17 12/12/17 History Olopatadine HCl [Pataday] 1 drop BOTH EYES BID 12/12/17 12/12/17 History SILVER sulfADIAZINE Cream 1 applic TOPICAL BID 12/12/17 12/12/17 History [Silvadene 1% Cream] Allergies Allergy/AdvReac Type Severity Reaction Status Date / Time escitalopram oxalate Allergy Rash/Hives Verified 08/16/17 14:02 [From Lexapro] Physical Exam Vitals: Vital Signs Temp Pulse Resp BP Pulse Ox 12/18/17 14:53 96.4 F L 86 18 125/89 98 12/18/17 05:45 97.7 F 84 16 133/81 98 12/17/17 23:00 97.9 F 85 16 130/69 96 Intake and Output 12/18/17 12/18/17 12/18/17 06:59 14:59 22:59 Intake Total 100 Balance 100 Intake: Oral 100 Other: Voiding Method Toilet # Voids 1 1 Skin: Atrophic, intact. General: Medium build and comfortable appearance. Head: Normocephalic, atraumatic. Eyes: Symmetric. Pupils equal round. Ears: Symmetric. Hearing within normal limits. Mouth: Clear. Neck: Supple. Carotid without bruit. Cardiac: Regular rate and rhythm. Lungs: Clear anteriorly and posteriorly. Abdomen: Soft active nontender. Extremities: Normal tone. Neurological: Mental status: Alert, cooperative, pleasant. Cranial nerves: Symmetric facial tone and trapezius. Motor: Normal strength and isolation all 4 limbs. Sensation: Intact throughout. DTRs: Symmetric and equal throughout. Mobility: Standby assist for bed mobility. Results CBC & Chem 7: 12/16/17 06:03 12/17/17 08:24 Labs: Abnormal Lab Results - Last 24 Hours (Table) 12/17/17 Range/Units 08:24 Creatine Kinase 140 H (30-135) U/L Microbiology - Last 24 Hours (Table) 12/13/17 08:29 Blood Culture - Preliminary Blood No Growth after 120 hours Chest x-ray: report reviewed (Demonstrates mediastinal widening only.) Assessment and Plan (1) Altered mental status Current Visit: Yes Status: Acute Code(s): R41.82 - ALTERED MENTAL STATUS, UNSPECIFIED SNOMED Code(s): 010668511 (2) Rhabdomyolysis Current Visit: Yes Status: Acute Code(s): M62.82 - RHABDOMYOLYSIS SNOMED Code(s): 198149497 (3) Urinary tract infection Current Visit: Yes Status: Acute Code(s): N39.0 - URINARY TRACT INFECTION, SITE NOT SPECIFIED SNOMED Code(s): 86564911 (4) Acute alcoholic intoxication Current Visit: No Status: Acute Code(s): F10.129 - ALCOHOL ABUSE WITH INTOXICATION, UNSPECIFIED SNOMED Code(s): 09388604 Plan: Impression: 1. Gait disturbance. 2. Mental status change. A. UTI. B. Alcohol intoxication and withdrawal. C. Rhabdomyolysis. 3. Chronic pain management. Comments and plan: At this time PT and OT are ongoing. Patient appears to be at supervision level Bender do not anticipate need of inpatient rehab at this time. In fact patient denies need for this as well. I do have her chronic pain medication management program. Patient should also be sent prescriptions and should not require opiate prescriptions upon discharge.
--- NOTE | 2017-12-18 17:24 | PN ---
PROGRESS NOTE Patient is seen for followup for hypernatremia and acute kidney injury. Her renal function has resolved. She is currently lying in bed. She is comfortable. Her mentation is not completely back to baseline. Patient is being followed by Psychiatry. She has been eating well. Currently patient is off of all IV fluids. On examination, blood pressure is 133/81, heart rate 84 per minute. She is afebrile. EXAMINATION OF THE HEART: S1, S2. EXAMINATION OF LUNGS: Bilateral breath sounds are heard. ABDOMEN: Soft, non-tender. Examination of lower extremities shows no evidence of edema. Labs show sodium 144, potassium 6.7, BUN 5, serum creatinine 0.4, hemoglobin 12.0 g/dL. ASSESSMENT: 1. Acute kidney injury, prerenal, currently resolved. 2. Hypernatremia associated with free water deficit, now improved. 3. Hypokalemia, status post replacement. Will repeat another dose of potassium supplementation today. 4. Hypertension, currently better controlled. 5. Rhabdomyolysis, now improved. 6. Urinary tract infection with Enterococcus aerogenes Staphylococcus epidermidis bacteremia, followed by Infectious Disease. Repeat blood cultures are negative. PLAN: Continue to encourage increased oral intake. Monitor electrolytes periodically. MMODL / IJN: [id number] /
[2017-12-18] MEDS ORDERED: HYDROcodone/APAP 10-325MG 1 EACH TAB PO PRN (19:28)
[2017-12-18] MEDS ORDERED: LURASIDONE 40 MG TAB PO SCH (21:00)
[2017-12-19] MEDS: ACETAMINOPHEN TAB 325 MG TAB PO PRN ×2 (03:54→14:48)
--- NOTE | 2017-12-19 06:13 | PN ---
PROGRESS NOTE DATE OF SERVICE: 12/18/2017 PRESENTING COMPLAINT: Altered mental status. INTERVAL HISTORY: This patient initially presented with altered mental status, probably had some alcohol coming in. Compared to my colleagues notes, patient is far more awake this morning when I saw her, wanted to go home. Patient does take chronic pain medications, some medications were adjusted by psychiatrist Dr. Keita. The patient really wants to go home. REVIEW OF SYSTEMS: Review of systems done for constitutional, cardiovascular, GI, pulmonary; relevant findings as above. CURRENT MEDICATIONS: Current medications are reviewed. PHYSICAL EXAMINATION: On examination, afebrile, pulse 84, respirations 16, blood pressure 132/81, pulse ox 98% on room air GENERAL APPEARANCE: Sitting up in bed, awake, a bit hyper excited. EYES: Pupils equal. Conjunctivae normal. HEENT: External appearance of nose and ears normal. Oral cavity normal. NECK: JVD not raised. Mass not palpable. RESPIRATORY: Effort normal. LUNGS: Slightly decreased breath sounds. CARDIOVASCULAR: First and second sounds normal. No edema. ABDOMEN: Soft, nontender. Liver and spleen not palpable. PSYCHIATRY: The patient's is able to answer some questions. Sometimes slipping up on other questions. INVESTIGATIONS: White count 9.9, hemoglobin 12. Potassium 3.7, BUN 5, creatinine 0.41. ASSESSMENT: 1. Acute delirium present on admission, multifactorial, improved. 2. Bipolar disorder type unknown. 3. Chronic pain, being followed by Dr. Rodgers. 4. Mild cognitive impairment. 5. Patient has a legal guardian. 6. Gastroesophageal reflux disease. 7. Primary osteoarthritis multiple joints. 8. Scoliosis. 9. History of Cedric-en-Y gastric bypass surgery. 10.Enterobacter urinary tract infection. PLAN: Antibiotics per Dr. Mars. The patient wanted to go home. I told her that she needs to stay for 24 hours. I will also speak to psychiatrist as medication needs to be adjusted. I did speak to Dr. Keita who is making further changes to the medications. Also spoke to Dr. Rodgers from Pain Management to review her medications and he did a consultation later this evening. I also had the nurse put out a call to [facility], Dr. Fleming as she was not able to do full evaluation when the patient had first come in because of mental status we can complete that before she goes. Total time spent today was about 40 to 45 minutes with over 25 minutes of discussion. MMABEBAL / IJN: [id number] /
[2017-12-19 06:18] VITALS: TEMP 97.6
[2017-12-19] MEDS: NICOTINE 21MG/24HR PATCH TRANSDERM SCH (08:13)
[2017-12-19] MEDS: THIAMINE 100 MG/ML 2 ML VIAL IVP SCH (08:13)
[2017-12-19] MEDS: GABAPENTIN 100 MG CAP PO SCH (08:13)
[2017-12-19] MEDS: cefTRIAXone IN SWFI 1,000 MG/10 ML SYRINGE IVP SCH (08:14)
[2017-12-19] MEDS: FOLIC ACID 1 MG TAB PO SCH (08:14)
[2017-12-19] MEDS: MULTIVITAMINS, THERA 1 EACH TAB PO SCH (08:14)
[2017-12-19] MEDS: KETOTIFEN 0.025% OPHTH DROPS 5 ML BTL BOTH EYES SCH (08:14)
[2017-12-19] MEDS: MORPHINE SULFATE ER 30 MG TABLET PO SCH (08:14)
[2017-12-19] MEDS: ERGOCALCIFEROL 50,000 UNIT CAP PO SCH (08:14)
[2017-12-19] MEDS ORDERED: CYANOCOBALAMIN 1,000 MCG/ML 1 ML VIAL IM SCH (09:00)
--- NOTE | 2017-12-19 13:10 | PN ---
PROGRESS NOTE Patient is seen for followup for acute kidney injury, hypernatremia, currently she is lying in bed. Her mentation seems to have improved. Blood pressure is stable. The 128/76, heart rate 70 per minute. The patient is euvolemic with no evidence of edema in the lower extremities. Abdomen is soft, nontender. MOTOR MAN exam is grossly intact. I do not have labs for the last 2 days. Serum creatinine was down to 0.4 on December 17. Potassium was 3.7 on 12/17/2017. ASSESSMENT: 1. Acute kidney injury, prerenal, currently resolved. 2. Hypokalemia, status post replacement. Will repeat labs today. 3. Hypernatremia secondary to free water deficit, now resolved. 4. History of bipolar disorder, being followed by Psychiatry. 5. Mental status changes/acute delirium, somewhat improving. PLAN: 1. Check a BMP today. 2. Continue to encourage increased oral intake and fluid intake. MMODL / IJN: [id number] /
--- NOTE | 2017-12-19 13:25 | PN ---
PROGRESS NOTE DATE OF SERVICE: 12/19/2017. REASON FOR FOLLOWUP VISIT: Urinary tract infection, Enterobacter. INTERVAL HISTORY: The patient is afebrile. She is breathing comfortably. Denies having any chest pain. No shortness of breath, abdominal pain or any diarrhea. EXAMINATION: Blood pressure 120/76, pulse of 70, temperature 97.6. She is 97% on room air. General description is an elderly female, lying in bed in no distress. RESPIRATORY SYSTEM: Unlabored breathing. Clear to auscultation anteriorly. HEART: S1, S2. Regular rate and rhythm. ABDOMEN: Soft, no tenderness. LABS: BUN of 5, creatinine 0.41. Blood culture repeat has been negative. DIAGNOSTIC IMPRESSION AND PLAN: 1. Patient with a positive blood culture, Staph agalactiae, likely contamination with repeat blood culture negative. 2. Patient with Enterobacter urinary tract infection adequately treated. She received about 7 days of antibiotic. Rocephin can be discontinued on discharge. MMODL / IJN: [id number] /
[2017-12-19 13:51] VITALS: BMI 23.6
[2017-12-19 13:57] LABS: Anion Gap 13 mmol/L; Blood Urea Nitrogen 4 mg/dL (7-17); Calcium 8.6 mg/dL (8.4-10.2); Carbon Dioxide 17 mmol/L (22-30); Chloride 113 mmol/L (98-107); Glucose 100 mg/dL (74-99); Potassium 3.8 mmol/L (3.5-5.1); Sodium 143 mmol/L (137-145)
[2017-12-19 15:14] VITALS: BP 144/79; PULSE 84; RESP 14
--- NOTE | 2017-12-20 08:23 | DS ---
DISCHARGE SUMMARY DATE OF ADMISSION: 12/12/2017. DATE OF DISCHARGE: 12/19/2017 FINAL DIAGNOSES: 1. Acute delirium present on admission, multifactorial, could be from medications. 2. Bipolar disorder, type unknown. 3. Chronic pain, being followed by Dr. Rodgers. 4. Mild cognitive impairment. 5. Patient has a legal guardian. 6. Gastroesophageal reflux disease. 7. Primary osteoarthritis of multiple joints. 8. Chronic scoliosis. 9. History of Cedric-en-Y gastric bypass surgery. 10.Enterobacter urinary tract infection. HOSPITAL COURSE: This patient presented with confusion felt to be delirium with contribution from a UTI. Also patient's medications were adjusted by the psychiatrist. Patient's Cymbalta, Claritin, Seroquel, Lasix, potassium were all discontinued. Patient had been in renal failure. Creatinine was 1.70 when she had come in, did drop down to 0.36 by the time of discharge. CONSULTATION: 1. Dr. Keita from Psychiatry. 2. Dr. Long from Nephrology. 3. Dr. Mars from Infectious Disease. 4. Dr. Henri Rodgers from Pain Management. 5. [facility]. 6. Dr. Fleming from [facility]. Dr. Fleming had called the nurse today. ADDITIONAL HOSPITAL COURSE: Dr. Fleming did call the nurse, there is no further need to see the patient and patient can be discharged, so did psychiatry clear the patient, too and also from ID standpoint. PHYSICAL EXAM: Lungs are lungs clear. CARDIOVASCULAR: First and second sounds are normal. PSYCH: Alert and oriented x3. DISCHARGE MEDICATIONS: 1. Flonase 2 sprays each nostril daily p.r.n. 2. Motrin 600 mg t.i.d. p.r.n. 3. Imodium 82 mg t.i.d. p.r.n. 4. MS Contin ER 60 mg b.i.d. 5. Vitamin B12 injection 1000 mcg weekly. 6. Vitamin D2 fifty thousand units q.7 days. 7. Neurontin 400 mg q.i.d. 8. Pataday 1 drop to both eyes b.i.d. 9. Silvadene 1% cream topical b.i.d. 10.Multivitamin 1 tablet p.o. daily p.r.n. 11.Nicotine 20 mg patch. 12.Additionally we noted from documentation from the nurse that the patient's new medication Latuda was very expensive and then Seroquel 25 mg b.i.d. was reordered by Psychiatry. FOLLOWUP: With psychiatrist in 1 week, Dr. Varela on 12/25/[address] Rodgers, to keep her appointment. MMABEBAL / JESUS [place]: [id number] /
== END 2017-12-19 16:43 | disposition home or self-care (01) | DRG 682 ==
LOC: EC 09:39 → 6SEL 12:25 → 4MS4W 12-17 03:42
PROVIDERS: ADMIT Hospitalist; ATTEND Hospitalist
DX: N17.9 Acute kidney failure, unspecified (principal); G93.41 Metabolic encephalopathy; N39.0 Urinary tract infection, site not specified; M62.82 Rhabdomyolysis; E87.2 Acidosis; F10.239 Alcohol dependence with withdrawal, unspecified; E87.0 Hyperosmolality and hypernatremia; F31.9 Bipolar disorder, unspecified; G89.29 Other chronic pain; K21.9 Gastro-esophageal reflux disease without esophagitis; M41.9 Scoliosis, unspecified; G31.84 Mild cognitive impairment of uncertain or unknown etiology; M47.9 Spondylosis, unspecified; E87.6 Hypokalemia; F17.210 Nicotine dependence, cigarettes, uncomplicated; F41.9 Anxiety disorder, unspecified; N95.1 Menopausal and female climacteric states; M48.00 Spinal stenosis, site unspecified; B96.20 Unspecified Escherichia coli [E. coli] as the cause of diseases classified elsewhere; R26.9 Unspecified abnormalities of gait and mobility; M54.9 Dorsalgia, unspecified; F10.229 Alcohol dependence with intoxication, unspecified; Y90.0 Blood alcohol level of less than 20 mg/100 ml; E87.5 Hyperkalemia; I10 Essential (primary) hypertension; M15.9 Polyosteoarthritis, unspecified; E86.0 Dehydration; B95.2 Enterococcus as the cause of diseases classified elsewhere; Z82.49 Family history of ischemic heart disease and other diseases of the circulatory system; Z79.1 Long term (current) use of non-steroidal anti-inflammatories (NSAID); Z79.891 Long term (current) use of opiate analgesic; Z88.8 Allergy status to other drugs, medicaments and biological substances; Z79.899 Other long term (current) drug therapy; Z98.84 Bariatric surgery status; Z98.51 Tubal ligation status; Z80.1 Family history of malignant neoplasm of trachea, bronchus and lung; Z80.42 Family history of malignant neoplasm of prostate
CPT/HCPCS: 36415; 71046; 80048; 80053; 80320; 81001; 82550; 82553; 83605; 83735; 84132; 84484; 85025; 85610; 85730; 87040; 87077; 87086; 87186; 87324; 87491; 87502; 87591; 93005; 93306; 94760; 96374; 96375; 99291

== ENCOUNTER 2018-01-03 01:55 | Emergency (ER) | payer MEDICARE, BC ==
[2018-01-03 02:07] LABS: Glucose,Whole Blood 93 mg/dL (75-99)
[2018-01-03] MEDS ORDERED: SODIUM CHLORIDE 0.9% 1,000 ML IV ONE ×2 (02:14)
--- NOTE | 2018-01-03 02:15 | ED ---
General Adult HPI - General Source: patient, RN notes reviewed, old records reviewed Mode of arrival: EMS Limitations: altered mental status <Ezra Schmidt - Last Filed: 01/03/18 02:47> <Angel Galindo - Last Filed: 01/03/18 08:20> - General Chief complaint: Altered Mental Status Stated complaint: ALTERED MENTAL STATUS Time Seen by Provider: 01/03/18 02:05 - History of Present Illness Initial comments: This is a 70-year-old female the ER for evaluation of altered mental state, poor strain, patient was found intoxicated not acting appropriate. Patient's brought in by EMS and PD, patient's petition for psychiatric evaluation. Patient herself has no complaint (Ezra Schmidt) - Related Data Home Medications Medication Instructions Recorded Confirmed Fluticasone Nasal [place] [Flonase 2 spr EA NOSTRIL DAILY PRN 08/16/17 12/12/17 Nasal [place]] Ibuprofen [Motrin] 600 mg PO TID PRN 08/16/17 12/12/17 Loperamide HCl [Imodium A-D] 2 mg PO TID PRN 08/16/17 12/12/17 Morphine Sulfate ER [Ms Contin] 60 mg PO BID 08/16/17 12/12/17 Cyanocobalamin [Vitamin B-12 1,000 mcg SQ WEEKLY 10/19/17 12/12/17 Injection] Ergocalciferol [Vitamin D2 50,000 unit PO Q7D 10/19/17 12/12/17 (DRISDOL)] Gabapentin [Neurontin] 400 mg PO QID 12/12/17 12/12/17 Olopatadine HCl [Pataday] 1 drop BOTH EYES BID 12/12/17 12/12/17 SILVER sulfADIAZINE Cream 1 applic TOPICAL BID 12/12/17 12/12/17 [Silvadene 1% Cream] Previous Rx's Medication Instructions Recorded Multivitamins, Thera [Multivitamin 1 each PO DAILY@1200 #30 tab 12/19/17 (formulary)] Nicotine 21Mg/24Hr Patch [Habitrol] 1 patch TRANSDERM DAILY #30 patch 12/19/17 QUEtiapine [SEROquel] 25 mg PO BID #30 tab 12/19/17 Allergies Allergy/AdvReac Type Severity Reaction Status Date / Time escitalopram oxalate Allergy Rash/Hives Verified 08/16/17 14:02 [From Lexapro] Review of Systems ROS Other: All systems not noted in ROS Statement are negative. <Angel Schmidtophsuraj Rosenberg - Last Filed: 01/03/18 02:47> ROS Other: All systems not noted in ROS Statement are negative. <Angel Galindo - Last Filed: 01/03/18 08:20> ROS Statement: Those systems with pertinent positive or pertinent negative responses have been documented in the HPI. Past Medical History Past Medical History: GERD/Reflux Additional Past Medical History / Comment(s): pain clinic treatment, back pain, ARTHRITIS,SPINAL STENOSIS,SCOLIOSIS, SPONDYLOSIS, DDD, BULGING DISCS, PINCHED NERVES. HAS HAD LOOSE TO WATERYS TOOLS SINCE GASTRIC SX UNLESS SHE TAKES HER PAIN PILLS THAT BIND HER A BIT. History of Any Multi-Drug Resistant Organisms: None Reported Past Surgical History: Bariatric Surgery, Tubal Ligation Additional Past Surgical History / Comment(s): NAMRATA EN Y GASTRIC BYPASS Past Anesthesia/Blood Transfusion Reactions: No Reported Reaction Additional Past Anesthesia/Blood Transfusion Reaction / Comment(s): SON HAD REACTION TO ANESTHESIA AND WAS ON A VENT-FAMILY WAS TESTED Past Psychological History: Anxiety, Depression Smoking Status: Light tobacco smoker Past Alcohol Use History: Daily Past Drug Use History: Prescription Drug Abuse - Past Family History Son(s) Additional Family Medical History / Comment(s): SON HAD PROBLEM WITH ANESTHESIA WAS ON A VENT-FAMILY WAS TESTED Mother Family Medical History: Myocardial Infarction ([place]) Father Family Medical History: Cancer, Prostate Disorder Additional Family Medical History / Comment(s): prostate cancer Brother(s) Additional Family Medical History / Comment(s): lung <Ezra Schmidt - Last Filed: 01/03/18 02:47> General Exam Limitations: altered mental status General appearance: alert, in no apparent distress Head exam: Present: atraumatic, normocephalic, normal inspection Eye exam: Present: normal appearance, PERRL, EOMI. Absent: scleral icterus, conjunctival injection, periorbital swelling ENT exam: Present: normal exam, mucous membranes moist Neck exam: Present: normal inspection. Absent: tenderness, meningismus, lymphadenopathy Respiratory exam: Present: normal lung sounds bilaterally. Absent: respiratory distress, wheezes, rales, rhonchi, stridor Cardiovascular Exam: Present: regular rate, normal rhythm, normal heart sounds. Absent: systolic murmur, diastolic murmur, rubs, gallop, clicks GI/Abdominal exam: Present: soft, normal bowel sounds. Absent: distended, tenderness, guarding, rebound, rigid Extremities exam: Present: normal inspection, full ROM, normal capillary refill. Absent: tenderness, pedal edema, joint swelling, calf tenderness Back exam: Present: normal inspection Neurological exam: Present: alert, oriented X3, CN II-XII intact Psychiatric exam: Present: normal affect, normal mood Skin exam: Present: warm, dry, intact, normal color. Absent: rash <Ezra Schmidt - Last Filed: 01/03/18 02:47> Vital Signs 01/03/18 01/03/18 01:57 07:28 Temperature 98.5 F 97.8 F Pulse Rate 70 101 H Respiratory 20 18 Rate Blood Pressure 123/85 149/89 O2 Sat by Pulse 96 95 Oximetry EKG Findings - EKG Comments: EKG Findings:: EKG shows normal sinus rhythm and started 92, WI 126, QRS 78, QTc 445 <Ezra Schmidt - Last Filed: 01/03/18 02:47> Medical Decision Making - Lab Data Result diagrams: 01/03/18 02:04 01/03/18 02:04 <Ezra Schmidt - Last Filed: 01/03/18 02:47> - Lab Data Result diagrams: 01/03/18 02:04 01/03/18 02:04 <Angel Galindo - Last Filed: 01/03/18 08:20> - Medical Decision Making The patient was observed throughout the morning and determined to be sober she was evaluated by psychiatric service and deemed not to be wrist herself or anyone else at this time she'll be discharged. A care plan will be worked out between the patient's son and guardian. (Angel Galindo) - Lab Data Lab Results 01/03/18 01/03/18 01/03/18 Range/Units 02:04 02:04 02:04 WBC 8.1 (3.8-10.6) k/uL RBC 3.80 (3.80-5.40) m/uL Hgb 11.9 (11.4-16.0) gm/dL Hct 37.6 (34.0-46.0) % MCV 98.9 (80.0-100.0) fL MCH 31.2 (25.0-35.0) pg MCHC 31.5 (31.0-37.0) g/dL RDW 15.9 H (11.5-15.5) % Plt Count 511 H (150-450) k/uL Neutrophils % 62 % Lymphocytes % 31 % Monocytes % 4 % Eosinophils % 0 % Basophils % 0 % Neutrophils # 5.1 (1.3-7.7) k/uL Lymphocytes # 2.5 (1.0-4.8) k/uL Monocytes # 0.4 (0-1.0) k/uL Eosinophils # 0.0 (0-0.7) k/uL Basophils # 0.0 (0-0.2) k/uL Hypochromasia Slight Macrocytosis Slight PT (9.0-12.0) sec INR (<1.2) APTT (22.0-30.0) sec Sodium 141 (137-145) mmol/L Potassium 4.3 (3.5-5.1) mmol/L Chloride 113 H (98-107) mmol/L Carbon Dioxide 15 L (22-30) mmol/L Anion Gap 13 mmol/L BUN 9 (7-17) mg/dL Creatinine 0.60 (0.52-1.04) mg/dL Est GFR (CKD-EPI)AfAm >90 (>60 ml/min/1.73 sqM) Est GFR (CKD-EPI)NonAf >90 (>60 ml/min/1.73 sqM) Glucose 85 (74-99) mg/dL POC Glucose (mg/dL) (75-99) mg/dL POC Glu Digital Printer Operator ID Calcium 8.0 L (8.4-10.2) mg/dL Total Bilirubin 0.2 (0.2-1.3) mg/dL AST 117 H (14-36) U/L ALT 86 H (9-52) U/L Alkaline Phosphatase 100 (38-126) U/L Ammonia (<30) umol/L Total Creatine Kinase 63 (30-135) U/L CK-MB (CK-2) 3.7 H* (0.0-2.4) ng/mL CK-MB (CK-2) Rel Index 5.9 Troponin I <0.012 (0.000-0.034) ng/mL Total Protein 5.1 L (6.3-8.2) g/dL Albumin 2.5 L (3.5-5.0) g/dL Urine Color Urine Appearance (Clear) Urine pH (5.0-8.0) Ur Specific [place] (1.001-1.035) Urine Protein (Negative) Urine Glucose (UA) (Negative) Urine Ketones (Negative) Urine Blood (Negative) Urine Nitrite (Negative) Urine Bilirubin (Negative) Urine Urobilinogen (<2.0) mg/dL Ur Leukocyte Esterase (Negative) Urine RBC (0-5) /hpf Urine WBC (0-5) /hpf Ur Squamous Epith Cells (0-4) /hpf Urine Bacteria (None) /hpf Urine Opiates Screen (NotDetected) Ur Oxycodone Screen (NotDetected) Urine Methadone Screen (NotDetected) Ur Propoxyphene Screen (NotDetected) Ur Barbiturates Screen (NotDetected) U Tricyclic Antidepress (NotDetected) Ur Phencyclidine Scrn (NotDetected) Ur Amphetamines Screen (NotDetected) U Methamphetamines Scrn (NotDetected) U Benzodiazepines Scrn (NotDetected) Urine Cocaine Screen (NotDetected) U Marijuana (THC) Screen (NotDetected) 01/03/18 01/03/18 01/03/18 Range/Units 02:04 02:05 03:47 WBC (3.8-10.6) k/uL RBC (3.80-5.40) m/uL Hgb (11.4-16.0) gm/dL Hct (34.0-46.0) % MCV (80.0-100.0) fL MCH (25.0-35.0) pg MCHC (31.0-37.0) g/dL RDW (11.5-15.5) % Plt Count (150-450) k/uL Neutrophils % % Lymphocytes % % Monocytes % % Eosinophils % % Basophils % % Neutrophils # (1.3-7.7) k/uL Lymphocytes # (1.0-4.8) k/uL Monocytes # (0-1.0) k/uL Eosinophils # (0-0.7) k/uL Basophils # (0-0.2) k/uL Hypochromasia Macrocytosis PT 10.5 (9.0-12.0) sec INR 1.1 (<1.2) APTT 24.0 (22.0-30.0) sec Sodium (137-145) mmol/L Potassium (3.5-5.1) mmol/L Chloride (98-107) mmol/L Carbon Dioxide (22-30) mmol/L Anion Gap mmol/L BUN (7-17) mg/dL Creatinine (0.52-1.04) mg/dL Est GFR (CKD-EPI)AfAm (>60 ml/min/1.73 sqM) Est GFR (CKD-EPI)NonAf (>60 ml/min/1.73 sqM) Glucose (74-99) mg/dL POC Glucose (mg/dL) 93 (75-99) mg/dL POC Glu Digital Printer Operator ID Zabrina Cochran Calcium (8.4-10.2) mg/dL Total Bilirubin (0.2-1.3) mg/dL AST (14-36) U/L ALT (9-52) U/L Alkaline Phosphatase (38-126) U/L Ammonia (<30) umol/L Total Creatine Kinase (30-135) U/L CK-MB (CK-2) (0.0-2.4) ng/mL CK-MB (CK-2) Rel Index Troponin I (0.000-0.034) ng/mL Total Protein (6.3-8.2) g/dL Albumin (3.5-5.0) g/dL Urine Color Light Yellow Urine Appearance Clear (Clear) Urine pH 6.0 (5.0-8.0) Ur Specific [place] 1.005 (1.001-1.035) Urine Protein Negative (Negative) Urine Glucose (UA) Negative (Negative) Urine Ketones Negative (Negative) Urine Blood Trace H (Negative) Urine Nitrite Negative (Negative) Urine Bilirubin Negative (Negative) Urine Urobilinogen <2.0 (<2.0) mg/dL Ur Leukocyte Esterase Large H (Negative) Urine RBC 2 (0-5) /hpf Urine WBC 2 (0-5) /hpf Ur Squamous Epith Cells 1 (0-4) /hpf Urine Bacteria Few H (None) /hpf Urine Opiates Screen Detected H (NotDetected) Ur Oxycodone Screen Not Detected (NotDetected) Urine Methadone Screen Not Detected (NotDetected) Ur Propoxyphene Screen Not Detected (NotDetected) Ur Barbiturates Screen Not Detected (NotDetected) U Tricyclic Antidepress Not Detected (NotDetected) Ur Phencyclidine Scrn Not Detected (NotDetected) Ur Amphetamines Screen Not Detected (NotDetected) U Methamphetamines Scrn Not Detected (NotDetected) U Benzodiazepines Scrn Not Detected (NotDetected) Urine Cocaine Screen Not Detected (NotDetected) U Marijuana (THC) Screen Not Detected (NotDetected) 01/03/18 Range/Units 05:12 WBC (3.8-10.6) k/uL RBC (3.80-5.40) m/uL Hgb (11.4-16.0) gm/dL Hct (34.0-46.0) % MCV (80.0-100.0) fL MCH (25.0-35.0) pg MCHC (31.0-37.0) g/dL RDW (11.5-15.5) % Plt Count (150-450) k/uL Neutrophils % % Lymphocytes % % Monocytes % % Eosinophils % % Basophils % % Neutrophils # (1.3-7.7) k/uL Lymphocytes # (1.0-4.8) k/uL Monocytes # (0-1.0) k/uL Eosinophils # (0-0.7) k/uL Basophils # (0-0.2) k/uL Hypochromasia Macrocytosis PT (9.0-12.0) sec INR (<1.2) APTT (22.0-30.0) sec Sodium (137-145) mmol/L Potassium (3.5-5.1) mmol/L Chloride (98-107) mmol/L Carbon Dioxide (22-30) mmol/L Anion Gap mmol/L BUN (7-17) mg/dL Creatinine (0.52-1.04) mg/dL Est GFR (CKD-EPI)AfAm (>60 ml/min/1.73 sqM) Est GFR (CKD-EPI)NonAf (>60 ml/min/1.73 sqM) Glucose (74-99) mg/dL POC Glucose (mg/dL) (75-99) mg/dL POC Glu Digital Printer Operator ID Calcium (8.4-10.2) mg/dL Total Bilirubin (0.2-1.3) mg/dL AST (14-36) U/L ALT (9-52) U/L Alkaline Phosphatase (38-126) U/L Ammonia <9 (<30) umol/L Total Creatine Kinase (30-135) U/L CK-MB (CK-2) (0.0-2.4) ng/mL CK-MB (CK-2) Rel Index Troponin I (0.000-0.034) ng/mL Total Protein (6.3-8.2) g/dL Albumin (3.5-5.0) g/dL Urine Color Urine Appearance (Clear) Urine pH (5.0-8.0) Ur Specific [place] (1.001-1.035) Urine Protein (Negative) Urine Glucose (UA) (Negative) Urine Ketones (Negative) Urine Blood (Negative) Urine Nitrite (Negative) Urine Bilirubin (Negative) Urine Urobilinogen (<2.0) mg/dL Ur Leukocyte Esterase (Negative) Urine RBC (0-5) /hpf Urine WBC (0-5) /hpf Ur Squamous Epith Cells (0-4) /hpf Urine Bacteria (None) /hpf Urine Opiates Screen (NotDetected) Ur Oxycodone Screen (NotDetected) Urine Methadone Screen (NotDetected) Ur Propoxyphene Screen (NotDetected) Ur Barbiturates Screen (NotDetected) U Tricyclic Antidepress (NotDetected) Ur Phencyclidine Scrn (NotDetected) Ur Amphetamines Screen (NotDetected) U Methamphetamines Scrn (NotDetected) U Benzodiazepines Scrn (NotDetected) Urine Cocaine Screen (NotDetected) U Marijuana (THC) Screen (NotDetected) Disposition <Ezra Schmidt - Last Filed: 01/03/18 02:47> Is patient prescribed a controlled substance at d/c from ED?: No <Angel Galindo - Last Filed: 01/03/18 08:20> Clinical Impression: Alcohol intoxication, Adjustment disorder Disposition: HOME SELF-CARE Condition: Good Instructions: Abuse of Alcohol (ED), Alcohol Intoxication (ED), Mood Disorders (ED) Referrals: Mehdi Varela DO [Primary Care Provider] - 1-2 days
[2018-01-03 02:27] LABS: Basophils % (A) 0 %; Eosinophils % (A) 0 %; HCT 37.6 % (34.0-46.0); HGB 11.9 gm/dL (11.4-16.0); Hypochromasia Slight; Lymphocytes # (A) 2.5 k/uL (1.0-4.8); Lymphocytes % (A) 31 %; MCH 31.2 pg (25.0-35.0); MCHC 31.5 g/dL (31.0-37.0); MCV 98.9 fL (80.0-100.0); Macrocytosis Slight; Mean Platelet Volume 6.3; Monocytes # (A) 0.4 k/uL (0-1.0); Monocytes % (A) 4 %; Neutrophils # (A) 5.1 k/uL (1.3-7.7); Neutrophils % (A) 62 %; Platelet Count 511 k/uL (150-450); RDW 15.9 % (11.5-15.5); WBC 8.1 k/uL (3.8-10.6)
[2018-01-03 02:33] LABS: INR 1.1 (<1.2); Prothrombin Time 10.5 sec (9.0-12.0)
[2018-01-03 02:35] LABS: ALT 86 U/L (9-52); AST 117 U/L (14-36); Albumin 2.5 g/dL (3.5-5.0); Alkaline Phosphatase 100 U/L (38-126); Anion Gap 13 mmol/L; Blood Urea Nitrogen 9 mg/dL (7-17); Carbon Dioxide 15 mmol/L (22-30); Chloride 113 mmol/L (98-107); Glucose 85 mg/dL (74-99); Potassium 4.3 mmol/L (3.5-5.1); Sodium 141 mmol/L (137-145); Total Bilirubin 0.2 mg/dL (0.2-1.3); Total Protein 5.1 g/dL (6.3-8.2)
[2018-01-03 02:44] LABS: Creatine Kinase 63 U/L (30-135)
[2018-01-03 02:57] LABS: Troponin I <0.012 ng/mL (0.000-0.034)
[2018-01-03 03:04] LABS: Creatine Kinase MB 3.7 ng/mL (0.0-2.4)
--- NOTE | 2018-01-03 03:24 | CT ---
EXAM: CT Head Without Intravenous Contrast CLINICAL HISTORY: ITS.REASON CT Reason: altered mental status Confusion, EtOH TECHNIQUE: Axial computed tomography images of the head/brain without intravenous contrast. CTDI is 60.30 mGy and DLP is 1005.20 mGy-cm. This CT exam was performed using one or more of the following dose reduction techniques: automated exposure control, adjustment of the mA and/or kV according to patient size, and/or use of iterative reconstruction technique. COMPARISON: 02/19/15 FINDINGS: Brain: Mild volume loss and small vessel disease. Stable left basal ganglia old lacunar infarct versus enlarged perivascular space. No hemorrhage. Ventricles: Unremarkable. No ventriculomegaly. Bones/joints: Unremarkable. No acute fracture. Soft tissues: Unremarkable. Sinuses: Unremarkable as visualized. No acute sinusitis. Mastoid air cells: Unremarkable as visualized. No mastoid effusion. IMPRESSION: No evidence of acute intracranial abnormality.
--- NOTE | 2018-01-03 03:54 | XR ---
EXAM: XR Chest, 2 Views CLINICAL HISTORY: ITS.REASON XR Reason: altered mental status TECHNIQUE: Frontal and lateral views of the chest. COMPARISON: Prior study from 12/12/2017 FINDINGS: Lungs: Low lung volumes. Mild basilar streaky opacity may be bronchovascular crowding, versus mild atelectasis. No focal consolidation Pleural space: No pleural effusion No pneumothorax. Heart: Unremarkable. No cardiomegaly. Mediastinum: Unremarkable. Bones/joints: Unremarkable. IMPRESSION: Low lung volumes and mild basilar bronchovascular crowding or atelectasis. No focal consolidation or effusion
[2018-01-03 03:57] LABS: Appearance,Urine Clear (Clear); Bacteria,Urine Few /hpf; Bilirubin,Urine Negative (Negative); Blood,Urine Trace (Negative); Color,Urine Light Yellow; Glucose,Urine (UA) Negative (Negative); Ketones,Urine Negative (Negative); Leukocyte Esterase,Urine Large (Negative); Nitrite,Urine Negative (Negative); Protein,Urine Negative (Negative); RBC,Urine 2 /hpf (0-5); Specific Gravity,Urine 1.005 (1.001-1.035); Squamous Epithelial Cell,Urine 1 /hpf (0-4); Urobilinogen,Urine <2.0 mg/dL (<2.0); WBC,Urine 2 /hpf (0-5)
[2018-01-03 04:04] LABS: Amphetamine Screen,Urine Not Detected (NotDetected); Barbiturate Screen,Urine Not Detected (NotDetected); Benzodiazepines Screen,Urine Not Detected (NotDetected); Cocaine Screen,Urine Not Detected (NotDetected); Methadone Screen, Urine Not Detected (NotDetected); Opiate Screen,Urine Detected (NotDetected); Oxycodone Screen, Urine Not Detected (NotDetected); Phencyclidine Screen,Urine Not Detected (NotDetected); Tricyclic Antidepressant,Urine Not Detected (NotDetected); Urn Cannabinoid Scrn Not Detected (NotDetected)
[2018-01-03 07:29] VITALS: TEMP 97.8
[2018-01-03 08:50] VITALS: BP 148/90; PULSE 94; RESP 16
== END 2018-01-03 08:49 | disposition home or self-care (01) ==
LOC: EC 01:55
DX: F43.20 Adjustment disorder, unspecified (principal); F10.120 Alcohol abuse with intoxication, uncomplicated; K21.9 Gastro-esophageal reflux disease without esophagitis; M19.90 Unspecified osteoarthritis, unspecified site; F41.9 Anxiety disorder, unspecified; F32.9 Major depressive disorder, single episode, unspecified; Z72.0 Tobacco use; Z79.891 Long term (current) use of opiate analgesic; Z79.899 Other long term (current) drug therapy; Z88.8 Allergy status to other drugs, medicaments and biological substances
CPT/HCPCS: 36415; 70450; 71046; 80053; 80306; 81001; 82075; 82140; 82550; 82553; 84484; 85025; 85610; 85730; 93005; 96360; 96361; 99285

== ENCOUNTER 2018-01-06 21:42 | Emergency (ER) | payer MEDICARE, BC ==
[2018-01-06 21:52] VITALS: BP 131/72; PULSE 102; RESP 18
--- NOTE | 2018-01-06 22:32 | ED ---
Back Pain HPI - General Chief Complaint: Back Pain/Injury Stated Complaint: Back Pain Time Seen by Provider: 01/06/18 22:16 Source: patient, RN notes reviewed Limitations: no limitations - History of Present Illness Initial Comments: This is a 72-year-old female with history of chronic back pain who presents to the emergency department with a chief complaint of acute back pain. Patient states that she has a history of spondylosis, scoliosis and herniated disks. She states that she has chronic generalized full back pain. She states that the pain moves all over the place. She states that she was recently admitted to this hospital and was discharged home on . She states when she returned home she developed right-sided back pain. She states that the pain is constant and achy. She states that this pain is typical for her. She states that she does take morphine and hydrocodone which has taken the edge off. She states that it has not totally relieved the pain. She denies fevers or chills, abdominal pain, nausea or vomiting, diarrhea or constipation, dysuria or hematuria. Denies saddle paresthesias or loss of bladder or bowel function. Denies numbness or tingling or radiation of pain down the legs. - Related Data Home Medications Medication Instructions Recorded Confirmed Fluticasone Nasal [place] [Flonase 2 spr EA NOSTRIL DAILY PRN 08/16/17 01/06/18 Nasal [place]] Ibuprofen [Motrin] 600 mg PO TID PRN 08/16/17 01/06/18 Loperamide HCl [Imodium A-D] 2 mg PO TID PRN 08/16/17 01/06/18 Morphine Sulfate ER [Ms Contin] 60 mg PO BID 08/16/17 01/06/18 Cyanocobalamin [Vitamin B-12 1,000 mcg SQ WEEKLY 10/19/17 01/06/18 Injection] Ergocalciferol [Vitamin D2 50,000 unit PO Q7D 10/19/17 01/06/18 (DRISDOL)] Gabapentin [Neurontin] 400 mg PO QID 12/12/17 01/06/18 Olopatadine HCl [Pataday] 1 drop BOTH EYES BID 12/12/17 01/06/18 SILVER sulfADIAZINE Cream 1 applic TOPICAL BID 12/12/17 01/06/18 [Silvadene 1% Cream] Previous Rx's Medication Instructions Recorded Multivitamins, Thera [Multivitamin 1 each PO DAILY@1200 #30 tab 12/19/17 (formulary)] Nicotine 21Mg/24Hr Patch [Habitrol] 1 patch TRANSDERM DAILY #30 patch 12/19/17 QUEtiapine [SEROquel] 25 mg PO BID #30 tab 12/19/17 Diazepam [Valium] 5 mg PO BID #4 tab 01/06/18 Allergies Allergy/AdvReac Type Severity Reaction Status Date / Time escitalopram oxalate Allergy Rash/Hives Verified 01/06/18 21:52 [From Lexapro] Review of Systems ROS Statement: Those systems with pertinent positive or pertinent negative responses have been documented in the HPI. ROS Other: All systems not noted in ROS Statement are negative. Past Medical History Past Medical History: GERD/Reflux Additional Past Medical History / Comment(s): pain clinic treatment, back pain, ARTHRITIS,SPINAL STENOSIS,SCOLIOSIS, SPONDYLOSIS, DDD, BULGING DISCS, PINCHED NERVES. HAS HAD LOOSE TO WATERYS TOOLS SINCE GASTRIC SX UNLESS SHE TAKES HER PAIN PILLS THAT BIND HER A BIT. History of Any Multi-Drug Resistant Organisms: None Reported Past Surgical History: Bariatric Surgery, Tubal Ligation Additional Past Surgical History / Comment(s): NAMRATA EN Y GASTRIC BYPASS Past Anesthesia/Blood Transfusion Reactions: No Reported Reaction Additional Past Anesthesia/Blood Transfusion Reaction / Comment(s): SON HAD REACTION TO ANESTHESIA AND WAS ON A VENT-FAMILY WAS TESTED Past Psychological History: Anxiety, Depression Smoking Status: Light tobacco smoker Past Alcohol Use History: Daily Past Drug Use History: Prescription Drug Abuse - Past Family History Son(s) Additional Family Medical History / Comment(s): SON HAD PROBLEM WITH ANESTHESIA WAS ON A VENT-FAMILY WAS TESTED Mother Family Medical History: Myocardial Infarction ([place]) Father Family Medical History: Cancer, Prostate Disorder Additional Family Medical History / Comment(s): prostate cancer Brother(s) Additional Family Medical History / Comment(s): lung General Exam - General Exam Comments Initial Comments: General: Awake and alert, well-developed; in no apparent distress. HEENT: Head atraumatic, normocephalic. Pupils are equal, round and reactive to light. Extraocular movements intact. Oropharynx moist without erythema or exudate. Neck: Supple. Normal ROM. Cardiovascular: Regular rate and rhythm. No murmurs, rubs or gallops. Chest symmetrical. Respiratory: Lungs clear to auscultation bilaterally. No wheezes, rales or rhonchi. Normal respiratory effort with no use of accessory muscles. Abdomen: Soft, non-tender, non-distended. No rigidity, rebound or guarding. Normal bowel sounds in all 4 quadrants. Musculoskeletal: Normal ROM, no tenderness bilateral upper and lower extremities. Tenderness on palpation of right lumbar region. No bony point vertebral tenderness. No SI joint tenderness. Sensation is intact. Pedal pulses are 2+ equal and palpable bilaterally. Skin: [place], warm and dry without rashes or lesions. Neurological: Alert and oriented x3. CN II-XII grossly intact. Speech is fluent and answers are appropriate. No focal neuro deficits. Psychiatric: Normal mood and affect. No overt signs of depression or anxiety noted. Limitations: no limitations Course Vital Signs 01/06/18 21:48 Pulse Rate 102 H Respiratory 18 Rate Blood Pressure 131/72 O2 Sat by Pulse 95 Oximetry Medical Decision Making - Medical Decision Making This is a 72-year-old female with history of chronic back pain who presents to the emergency department with chief complaint of acute back pain. Patient states that she takes MS Contin and hydrocodone for her back pain. She states that her back pain typically moves around. She states that on she developed right-sided back pain that has been constant. She denies any specific injuries. Denies saddle paresthesias or loss of bladder or bowel function. On physical examination, patient is tender along the right lumbar region. No bony point tenderness. Patient is ambulating normally and is neurovascularly intact. She requests to have additional medication to help with the back pain. Patient given one dose of Valium while in the emergency department. She will be prescribed 2 days worth of Valium to be used as a muscle relaxer. Patient's vital signs are stable and she is in no acute distress. She'll be discharged home at this time. All questions answered. Disposition Clinical Impression: Acute exacerbation of chronic low back pain Disposition: HOME SELF-CARE Condition: Good Instructions: Chronic Back Pain (ED) Additional Instructions: Please take medications as prescribed. Please follow up with primary care provider within 1-2 days. Return to emergency department if symptoms should worsen or any concerns arise. Prescriptions: Diazepam [Valium] 5 mg PO BID #4 tab Is patient prescribed a controlled substance at d/c from ED?: Yes When asked, does pt state using other controlled substances?: Yes If prescribed controlled substance>3 days was MAPS reviewed?: Prescribed <3 Days Referrals: Mehdi Varela DO [Primary Care Provider] - 1-2 days Time of Disposition: 22:58
[2018-01-06] MEDS ORDERED: DIAZEPAM 5 MG TAB PO STA (22:52)
== END 2018-01-06 23:03 | disposition home or self-care (01) ==
LOC: EC 21:42
DX: G89.29 Other chronic pain (principal); M54.5 Low back pain; M48.00 Spinal stenosis, site unspecified; M41.9 Scoliosis, unspecified; M19.90 Unspecified osteoarthritis, unspecified site; F17.200 Nicotine dependence, unspecified, uncomplicated; Z88.8 Allergy status to other drugs, medicaments and biological substances; Z79.891 Long term (current) use of opiate analgesic; Z79.899 Other long term (current) drug therapy
CPT/HCPCS: 99283

== ENCOUNTER 2018-01-08 10:43 | Emergency (ER) | payer MEDICARE, BC ==
[2018-01-08 11:47] LABS: Anisocytosis Slight; Basophils % (A) 0 %; Eosinophils % (A) 0 %; HCT 40.4 % (34.0-46.0); HGB 12.3 gm/dL (11.4-16.0); Hypochromasia Moderate; Lymphocytes % (A) 16 %; MCH 31.2 pg (25.0-35.0); MCHC 30.4 g/dL (31.0-37.0); MCV 102.5 fL (80.0-100.0); Macrocytosis Moderate; Mean Platelet Volume 6.9; Monocytes # (A) 0.4 k/uL (0-1.0); Monocytes % (A) 6 %; Neutrophils # (A) 4.5 k/uL (1.3-7.7); Neutrophils % (A) 75 %; Platelet Count 522 k/uL (150-450); RBC 3.94 m/uL (3.80-5.40); RDW 18.1 % (11.5-15.5); WBC 6.1 k/uL (3.8-10.6)
[2018-01-08 12:00] LABS: ALT 192 U/L (9-52); AST 195 U/L (14-36); Albumin 2.6 g/dL (3.5-5.0); Alkaline Phosphatase 117 U/L (38-126); Amylase 75 U/L (30-110); Anion Gap 13 mmol/L; Blood Urea Nitrogen 6 mg/dL (7-17); Carbon Dioxide 18 mmol/L (22-30); Chloride 114 mmol/L (98-107); Glucose 103 mg/dL (74-99); Lipase 464 U/L (23-300); Magnesium 1.9 mg/dL (1.6-2.3); Potassium 3.4 mmol/L (3.5-5.1); Sodium 145 mmol/L (137-145); Total Bilirubin 0.6 mg/dL (0.2-1.3); Total Protein 5.4 g/dL (6.3-8.2)
[2018-01-08 12:03] LABS: INR 1.1 (<1.2); Prothrombin Time 11.1 sec (9.0-12.0)
[2018-01-08 12:09] LABS: Creatine Kinase 37 U/L (30-135)
[2018-01-08 12:10] LABS: Alcohol 257 mg/dL
--- NOTE | 2018-01-08 12:20 | ED ---
General Adult HPI - General Chief complaint: Alcohol Stated complaint: ETOH, altered mental status Time Seen by Provider: 01/08/18 10:59 Source: patient, EMS, RN notes reviewed, old records reviewed Mode of arrival: EMS Limitations: altered mental status - History of Present Illness Initial comments: This is a 72-year-old female was brought in by EMS initially the call was for a possible fall foot injury a palacio was apparently noted to be drinking out of a fifth of whiskey bottle upon arrival by EMS. Patient complains no pain she was brought here for evaluation she denies any head neck or back pain any injury to her upper or lower extremities she states she hasn't eaten for 4 days. He apparently been shopping at a local drug store where she did buy 2 bottles of alcohol. - Related Data Home Medications Medication Instructions Recorded Confirmed Fluticasone Nasal [place] [Flonase 2 spr EA NOSTRIL DAILY PRN 08/16/17 01/08/18 Nasal [place]] Ibuprofen [Motrin] 600 mg PO TID PRN 08/16/17 01/08/18 Loperamide HCl [Imodium A-D] 2 mg PO TID PRN 08/16/17 01/08/18 Morphine Sulfate ER [Ms Contin] 60 mg PO BID 08/16/17 01/08/18 Cyanocobalamin [Vitamin B-12 1,000 mcg SQ WEEKLY 10/19/17 01/08/18 Injection] Ergocalciferol [Vitamin D2 50,000 unit PO Q7D 10/19/17 01/08/18 (DRISDOL)] Gabapentin [Neurontin] 400 mg PO QID 12/12/17 01/08/18 Olopatadine HCl [Pataday] 1 drop BOTH EYES BID 12/12/17 01/08/18 SILVER sulfADIAZINE Cream 1 applic TOPICAL BID 12/12/17 01/08/18 [Silvadene 1% Cream] Previous Rx's Medication Instructions Recorded Multivitamins, Thera [Multivitamin 1 each PO DAILY@1200 #30 tab 12/19/17 (formulary)] Nicotine 21Mg/24Hr Patch [Habitrol] 1 patch TRANSDERM DAILY #30 patch 12/19/17 QUEtiapine [SEROquel] 25 mg PO BID #30 tab 12/19/17 Diazepam [Valium] 5 mg PO BID #4 tab 01/06/18 Allergies Allergy/AdvReac Type Severity Reaction Status Date / Time escitalopram oxalate Allergy Rash/Hives Verified 01/08/18 11:16 [From Lexapro] Review of Systems ROS Statement: Those systems with pertinent positive or pertinent negative responses have been documented in the HPI. ROS Other: All systems not noted in ROS Statement are negative. Past Medical History Past Medical History: GERD/Reflux Additional Past Medical History / Comment(s): pain clinic treatment, back pain, ARTHRITIS,SPINAL STENOSIS,SCOLIOSIS, SPONDYLOSIS, DDD, BULGING DISCS, PINCHED NERVES. HAS HAD LOOSE TO WATERYS TOOLS SINCE GASTRIC SX UNLESS SHE TAKES HER PAIN PILLS THAT BIND HER A BIT. History of Any Multi-Drug Resistant Organisms: None Reported Past Surgical History: Bariatric Surgery, Tubal Ligation Additional Past Surgical History / Comment(s): NAMRATA EN Y GASTRIC BYPASS Past Anesthesia/Blood Transfusion Reactions: No Reported Reaction Additional Past Anesthesia/Blood Transfusion Reaction / Comment(s): SON HAD REACTION TO ANESTHESIA AND WAS ON A VENT-FAMILY WAS TESTED Past Psychological History: Anxiety, Depression Smoking Status: Light tobacco smoker Past Alcohol Use History: Daily Past Drug Use History: Prescription Drug Abuse - Past Family History Son(s) Additional Family Medical History / Comment(s): SON HAD PROBLEM WITH ANESTHESIA WAS ON A VENT-FAMILY WAS TESTED Mother Family Medical History: Myocardial Infarction ([place]) Father Family Medical History: Cancer, Prostate Disorder Additional Family Medical History / Comment(s): prostate cancer Brother(s) Additional Family Medical History / Comment(s): lung General Exam - General Exam Comments Initial Comments: Physical well-developed asthenic appearing female who is awake and alert somewhat sluggish however with response there is a smell of alcohol conjoiners on her breath Limitations: altered mental status General appearance: alert, in no apparent distress Head exam: Present: atraumatic, normocephalic, normal inspection Eye exam: Present: normal appearance, PERRL, EOMI. Absent: scleral icterus, conjunctival injection, periorbital swelling ENT exam: Present: normal exam, mucous membranes moist Neck exam: Present: normal inspection. Absent: tenderness, meningismus, lymphadenopathy Respiratory exam: Present: normal lung sounds bilaterally. Absent: respiratory distress, wheezes, rales, rhonchi, stridor Cardiovascular Exam: Present: regular rate, normal rhythm, normal heart sounds. Absent: systolic murmur, diastolic murmur, rubs, gallop, clicks GI/Abdominal exam: Present: soft, normal bowel sounds. Absent: distended, tenderness, guarding, rebound, rigid Extremities exam: Present: full ROM, normal capillary refill, pedal edema, other (Patient states she normally has some edema which is noted to the left lower extremity no tenderness palpation. Node obvious deformity). Absent: tenderness, joint swelling, calf tenderness Back exam: Present: full ROM Neurological exam: Present: alert, oriented X3, CN II-XII intact. Absent: motor sensory deficit Psychiatric exam: Present: normal affect, normal mood Skin exam: Present: warm, dry, intact, normal color. Absent: rash Course Vital Signs 01/08/18 01/08/18 11:00 14:21 Temperature 97.0 F L 98.0 F Pulse Rate 68 74 Respiratory 16 18 Rate Blood Pressure 96/52 94/53 O2 Sat by Pulse 100 94 L Oximetry EKG Findings - EKG Results: EKG: interpreted by KATHIE, sinus rhythm (Sinus rhythm rate is 67 RI interval 116 QRS 94 QT since QTC of 422/[address] configuration.) Medical Decision Making - Medical Decision Making The patient was observed for a number of hours in the emergency department until she was sober enough to be discharged. She'll be discharged with her guardian. She was awake alert oriented 3 - Lab Data Result diagrams: 01/08/18 11:28 01/08/18 11:28 Lab Results 01/08/18 01/08/18 01/08/18 Range/Units 11:28 11:28 11:28 WBC (3.8-10.6) k/uL RBC (3.80-5.40) m/uL Hgb (11.4-16.0) gm/dL Hct (34.0-46.0) % MCV (80.0-100.0) fL MCH (25.0-35.0) pg MCHC (31.0-37.0) g/dL RDW (11.5-15.5) % Plt Count (150-450) k/uL Neutrophils % % Lymphocytes % % Monocytes % % Eosinophils % % Basophils % % Neutrophils # (1.3-7.7) k/uL Lymphocytes # (1.0-4.8) k/uL Monocytes # (0-1.0) k/uL Eosinophils # (0-0.7) k/uL Basophils # (0-0.2) k/uL Hypochromasia Anisocytosis Macrocytosis PT 11.1 (9.0-12.0) sec INR 1.1 (<1.2) Sodium 145 (137-145) mmol/L Potassium 3.4 L (3.5-5.1) mmol/L Chloride 114 H (98-107) mmol/L Carbon Dioxide 18 L (22-30) mmol/L Anion Gap 13 mmol/L BUN 6 L (7-17) mg/dL Creatinine 0.51 L (0.52-1.04) mg/dL Est GFR (CKD-EPI)AfAm >90 (>60 ml/min/1.73 sqM) Est GFR (CKD-EPI)NonAf >90 (>60 ml/min/1.73 sqM) Glucose 103 H (74-99) mg/dL Calcium 8.0 L (8.4-10.2) mg/dL Magnesium 1.9 (1.6-2.3) mg/dL Total Bilirubin 0.6 (0.2-1.3) mg/dL AST 195 H (14-36) U/L ALT 192 H (9-52) U/L Alkaline Phosphatase 117 (38-126) U/L Ammonia (<30) umol/L Total Creatine Kinase 37 (30-135) U/L CK-MB (CK-2) 2.0 (0.0-2.4) ng/mL CK-MB (CK-2) Rel Index 5.4 Troponin I <0.012 (0.000-0.034) ng/mL Total Protein 5.4 L (6.3-8.2) g/dL Albumin 2.6 L (3.5-5.0) g/dL Amylase 75 (30-110) U/L Lipase 464 H (23-300) U/L Serum Alcohol 257 mg/dL 01/08/18 01/08/18 Range/Units 11:28 14:30 WBC 6.1 (3.8-10.6) k/uL RBC 3.94 (3.80-5.40) m/uL Hgb 12.3 (11.4-16.0) gm/dL Hct 40.4 (34.0-46.0) % MCV 102.5 H (80.0-100.0) fL MCH 31.2 (25.0-35.0) pg MCHC 30.4 L (31.0-37.0) g/dL RDW 18.1 H (11.5-15.5) % Plt Count 522 H (150-450) k/uL Neutrophils % 75 % Lymphocytes % 16 % Monocytes % 6 % Eosinophils % 0 % Basophils % 0 % Neutrophils # 4.5 (1.3-7.7) k/uL Lymphocytes # 1.0 (1.0-4.8) k/uL Monocytes # 0.4 (0-1.0) k/uL Eosinophils # 0.0 (0-0.7) k/uL Basophils # 0.0 (0-0.2) k/uL Hypochromasia Moderate Anisocytosis Slight Macrocytosis Moderate PT (9.0-12.0) sec INR (<1.2) Sodium (137-145) mmol/L Potassium (3.5-5.1) mmol/L Chloride (98-107) mmol/L Carbon Dioxide (22-30) mmol/L Anion Gap mmol/L BUN (7-17) mg/dL Creatinine (0.52-1.04) mg/dL Est GFR (CKD-EPI)AfAm (>60 ml/min/1.73 sqM) Est GFR (CKD-EPI)NonAf (>60 ml/min/1.73 sqM) Glucose (74-99) mg/dL Calcium (8.4-10.2) mg/dL Magnesium (1.6-2.3) mg/dL Total Bilirubin (0.2-1.3) mg/dL AST (14-36) U/L ALT (9-52) U/L Alkaline Phosphatase (38-126) U/L Ammonia <9 (<30) umol/L Total Creatine Kinase (30-135) U/L CK-MB (CK-2) (0.0-2.4) ng/mL CK-MB (CK-2) Rel Index Troponin I (0.000-0.034) ng/mL Total Protein (6.3-8.2) g/dL Albumin (3.5-5.0) g/dL Amylase (30-110) U/L Lipase (23-300) U/L Serum Alcohol mg/dL Disposition Clinical Impression: Acute alcoholic intoxication Disposition: HOME SELF-CARE Condition: Good Instructions: Alcohol Intoxication (ED) Is patient prescribed a controlled substance at d/c from ED?: No Referrals: Mehdi Varela DO [Primary Care Provider] - 1-2 days
[2018-01-08 12:22] LABS: Troponin I <0.012 ng/mL (0.000-0.034)
[2018-01-08 14:22] VITALS: RESP 18
[2018-01-08 16:48] VITALS: BP 96/57; PULSE 79; TEMP 97.8
== END 2018-01-08 16:48 | disposition home or self-care (01) ==
LOC: EC 10:43
DX: F10.129 Alcohol abuse with intoxication, unspecified (principal); Y90.8 Blood alcohol level of 240 mg/100 ml or more; M41.9 Scoliosis, unspecified; M48.00 Spinal stenosis, site unspecified; M47.9 Spondylosis, unspecified; F17.200 Nicotine dependence, unspecified, uncomplicated; Z88.8 Allergy status to other drugs, medicaments and biological substances; Z79.891 Long term (current) use of opiate analgesic; Z79.899 Other long term (current) drug therapy
CPT/HCPCS: 36415; 80053; 80320; 82140; 82150; 82550; 82553; 83690; 83735; 84484; 85025; 85610; 93005; 99285

== ENCOUNTER 2018-01-21 20:23 | Inpatient (IN) | payer MEDICARE, BC ==
[2018-01-21] MEDS ORDERED: SODIUM CHLORIDE 0.9% 1,000 ML IV ONE (21:07)
--- NOTE | 2018-01-21 21:12 | ED ---
General Adult HPI - General Chief complaint: Recheck/Abnormal Lab/Rx Stated complaint: Mental Health Time Seen by Provider: 01/21/18 20:38 Source: EMS Mode of arrival: EMS Limitations: no limitations - History of Present Illness Initial comments: Patient is a 72-year-old woman who was unable to me why she was here initially. The patient states that she had been at home, and then it appears that police may have been called to the scene to check her. She states that while she was attempting to explain something to them she fell over, And they brought her because she fell. The patient does not have any medical complaints right now. She states that she would prefer to go home. She specifically denies any injury related to the fall. She is not having any head or neck pain, no chest, back, abdomen or extremity pain. -: minutes(s) Improves with: none Worsens with: none Associated Symptoms: denies other symptoms Treatments Prior to Arrival: none - Related Data Home Medications Medication Instructions Recorded Confirmed Fluticasone Nasal [place] [Flonase 2 spr EA NOSTRIL DAILY PRN 08/16/17 01/22/18 Nasal [place]] Ibuprofen [Motrin] 600 mg PO TID PRN 08/16/17 01/22/18 Loperamide HCl [Imodium A-D] 2 mg PO TID PRN 08/16/17 01/22/18 Morphine Sulfate ER [Ms Contin] 60 mg PO BID 08/16/17 01/22/18 Ergocalciferol [Vitamin D2 50,000 unit PO Q7D 10/19/17 01/22/18 (DRISDOL)] Gabapentin [Neurontin] 400 mg PO QID 12/12/17 01/22/18 Olopatadine HCl [Pataday] 1 drop BOTH EYES BID 12/12/17 01/22/18 SILVER sulfADIAZINE Cream 1 applic TOPICAL BID 12/12/17 01/22/18 [Silvadene 1% Cream] Cyanocobalamin (Vitamin B-12) 1,000 mcg PO DAILY 01/22/18 01/22/18 [Vitamin B-12] DULoxetine HCL [Cymbalta] 60 mg PO BID 01/22/18 01/22/18 Furosemide [Lasix] 40 mg PO DAILY 01/22/18 01/22/18 Hydrocodone/Acetaminophen [Show Low 1 tab PO BID PRN 01/22/18 01/22/18 10-325] Loratadine [Claritin] 10 mg PO DAILY 01/22/18 01/22/18 Potassium Chloride [Klor-Con 10] 10 meq PO DAILY 01/22/18 01/22/18 Previous Rx's Medication Instructions Recorded QUEtiapine [SEROquel] 25 mg PO BID #30 tab 12/19/17 Allergies Allergy/AdvReac Type Severity Reaction Status Date / Time escitalopram oxalate Allergy Rash/Hives Verified 01/21/18 20:44 [From Lexapro] Review of Systems ROS Statement: Those systems with pertinent positive or pertinent negative responses have been documented in the HPI. ROS Other: All systems not noted in ROS Statement are negative. Eyes: Denies: vision change Respiratory: Denies: cough, dyspnea Cardiovascular: Denies: chest pain, syncope Gastrointestinal: Denies: abdominal pain, vomiting Musculoskeletal: Denies: back pain Skin: Denies: rash Neurological: Denies: headache, weakness, numbness Psychiatric: Denies: homicidal thoughts, suicidal thoughts Past Medical History Past Medical History: GERD/Reflux Additional Past Medical History / Comment(s): pain clinic treatment, back pain, ARTHRITIS,SPINAL STENOSIS,SCOLIOSIS, SPONDYLOSIS, DDD, BULGING DISCS, PINCHED NERVES. HAS HAD LOOSE TO WATERYS TOOLS SINCE GASTRIC SX UNLESS SHE TAKES HER PAIN PILLS THAT BIND HER A BIT. History of Any Multi-Drug Resistant Organisms: None Reported Past Surgical History: Bariatric Surgery, Tubal Ligation Additional Past Surgical History / Comment(s): NAMRATA EN Y GASTRIC BYPASS Past Anesthesia/Blood Transfusion Reactions: No Reported Reaction Additional Past Anesthesia/Blood Transfusion Reaction / Comment(s): SON HAD REACTION TO ANESTHESIA AND WAS ON A VENT-FAMILY WAS TESTED Past Psychological History: Anxiety, Depression Smoking Status: Light tobacco smoker Past Alcohol Use History: Abuse, Daily Past Drug Use History: Prescription Drug Abuse - Past Family History Son(s) Additional Family Medical History / Comment(s): SON HAD PROBLEM WITH ANESTHESIA WAS ON A VENT-FAMILY WAS TESTED Mother Family Medical History: Myocardial Infarction ([place]) Father Family Medical History: Cancer, Prostate Disorder Additional Family Medical History / Comment(s): prostate cancer Brother(s) Additional Family Medical History / Comment(s): lung General Exam Limitations: no limitations General appearance: alert, in no apparent distress Head exam: Present: atraumatic, normocephalic Eye exam: Present: normal appearance. Absent: scleral icterus, conjunctival injection ENT exam: Present: mucous membranes dry Neck exam: Present: normal inspection, full ROM Respiratory exam: Present: normal lung sounds bilaterally. Absent: respiratory distress, wheezes, rales, rhonchi, stridor Cardiovascular Exam: Present: regular rate, normal rhythm, normal heart sounds. Absent: systolic murmur, diastolic murmur, rubs, gallop GI/Abdominal exam: Present: soft. Absent: distended, tenderness, guarding, rebound, mass Extremities exam: Present: normal inspection, normal capillary refill. Absent: pedal edema, calf tenderness Neurological exam: Present: alert, CN II-XII intact, other (Mild ataxia). Absent: motor sensory deficit Skin exam: Present: warm, dry, intact, normal color. Absent: rash Course Vital Signs 01/21/18 01/21/18 01/21/18 20:38 23:17 23:21 Temperature 98.4 F 97.0 F L Pulse Rate 102 H 72 Respiratory 18 18 Rate Blood Pressure 103/42 83/52 O2 Sat by Pulse 95 100 Oximetry 01/22/18 01/22/18 01:43 02:47 Temperature 98.1 F 97 F L Pulse Rate 77 87 Respiratory 18 18 Rate Blood Pressure 113/53 110/71 O2 Sat by Pulse 97 97 Oximetry Medical Decision Making - Medical Decision Making This patient's a 72-year-old woman brought in after it sounds like police were called to her location and the patient had a fall and was found to be incontinent of stool and urine. The patient is not able to adequately explain all of this though she does not have any medical complaints. She does have a public guardian and we were not able to successfully reach the guardian, nor a family member. As we are uncertain that the patient has a safe discharge location, she'll be admitted to have social work consult to arrange a safe place. - Lab Data Result diagrams: 01/24/18 06:27 01/24/18 06:27 Lab Results 01/21/18 01/21/18 01/21/18 Range/Units 21:21 21:21 21:21 WBC 9.8 (3.8-10.6) k/uL RBC 3.75 L (3.80-5.40) m/uL Hgb 12.2 (11.4-16.0) gm/dL Hct 38.7 (34.0-46.0) % MCV 103.2 H (80.0-100.0) fL MCH 32.5 (25.0-35.0) pg MCHC 31.5 (31.0-37.0) g/dL RDW 17.0 H (11.5-15.5) % Plt Count 372 (150-450) k/uL Neutrophils % 82 % Lymphocytes % 8 % Monocytes % 8 % Eosinophils % 0 % Basophils % 0 % Neutrophils # 8.0 H (1.3-7.7) k/uL Lymphocytes # 0.8 L (1.0-4.8) k/uL Monocytes # 0.8 (0-1.0) k/uL Eosinophils # 0.0 (0-0.7) k/uL Basophils # 0.0 (0-0.2) k/uL Hypochromasia Slight Anisocytosis Slight Macrocytosis Moderate Sodium 136 L (137-145) mmol/L Potassium 3.7 (3.5-5.1) mmol/L Chloride 101 (98-107) mmol/L Carbon Dioxide 21 L (22-30) mmol/L Anion Gap 14 mmol/L BUN 32 H (7-17) mg/dL Creatinine 1.00 (0.52-1.04) mg/dL Est GFR (CKD-EPI)AfAm 66 (>60 ml/min/1.73 sqM) Est GFR (CKD-EPI)NonAf 57 (>60 ml/min/1.73 sqM) Glucose 93 (74-99) mg/dL POC Glucose (mg/dL) (75-99) mg/dL POC Glu Institution Librarian ID Estimated Ave Glu mg/dL Hemoglobin A1c (4.0-6.0) % Plasma Lactic Acid Claude 1.9 (0.7-2.0) mmol/L Calcium 7.9 L (8.4-10.2) mg/dL Magnesium 1.6 (1.6-2.3) mg/dL Total Creatine Kinase (30-135) U/L CK-MB (CK-2) (0.0-2.4) ng/mL CK-MB (CK-2) Rel Index Troponin I (0.000-0.034) ng/mL Serum Alcohol <10 mg/dL 01/22/18 01/22/18 01/22/18 Range/Units 12:14 12:27 12:27 WBC 6.2 (3.8-10.6) k/uL RBC 3.23 L (3.80-5.40) m/uL Hgb 10.4 L (11.4-16.0) gm/dL Hct 33.2 L (34.0-46.0) % MCV 102.9 H (80.0-100.0) fL MCH 32.2 (25.0-35.0) pg MCHC 31.3 (31.0-37.0) g/dL RDW 16.9 H (11.5-15.5) % Plt Count 300 (150-450) k/uL Neutrophils % 75 % Lymphocytes % 13 % Monocytes % 9 % Eosinophils % 0 % Basophils % 0 % Neutrophils # 4.7 (1.3-7.7) k/uL Lymphocytes # 0.8 L (1.0-4.8) k/uL Monocytes # 0.5 (0-1.0) k/uL Eosinophils # 0.0 (0-0.7) k/uL Basophils # 0.0 (0-0.2) k/uL Hypochromasia Moderate Anisocytosis Slight Macrocytosis Moderate Sodium (137-145) mmol/L Potassium (3.5-5.1) mmol/L Chloride (98-107) mmol/L Carbon Dioxide (22-30) mmol/L Anion Gap mmol/L BUN (7-17) mg/dL Creatinine (0.52-1.04) mg/dL Est GFR (CKD-EPI)AfAm (>60 ml/min/1.73 sqM) Est GFR (CKD-EPI)NonAf (>60 ml/min/1.73 sqM) Glucose (74-99) mg/dL POC Glucose (mg/dL) 84 (75-99) mg/dL POC Glu Institution Librarian ID Zoila Castro Estimated [address] Glu mg/dL Hemoglobin A1c (4.0-6.0) % Plasma Lactic Acid Claude (0.7-2.0) mmol/L Calcium (8.4-10.2) mg/dL Magnesium (1.6-2.3) mg/dL Total Creatine Kinase 83 (30-135) U/L CK-MB (CK-2) 4.6 H* (0.0-2.4) ng/mL CK-MB (CK-2) Rel Index 5.5 Troponin I (0.000-0.034) ng/mL Serum Alcohol mg/dL 01/22/18 01/22/18 01/22/18 Range/Units 12:27 12:27 16:42 WBC (3.8-10.6) k/uL RBC (3.80-5.40) m/uL Hgb (11.4-16.0) gm/dL Hct (34.0-46.0) % MCV (80.0-100.0) fL MCH (25.0-35.0) pg MCHC (31.0-37.0) g/dL RDW (11.5-15.5) % Plt Count (150-450) k/uL Neutrophils % % Lymphocytes % % Monocytes % % Eosinophils % % Basophils % % Neutrophils # (1.3-7.7) k/uL Lymphocytes # (1.0-4.8) k/uL Monocytes # (0-1.0) k/uL Eosinophils # (0-0.7) k/uL Basophils # (0-0.2) k/uL Hypochromasia Anisocytosis Macrocytosis Sodium 139 (137-145) mmol/L Potassium 2.7 L* (3.5-5.1) mmol/L Chloride 109 H (98-107) mmol/L Carbon Dioxide 19 L (22-30) mmol/L Anion Gap 11 mmol/L BUN 25 H (7-17) mg/dL Creatinine 0.73 (0.52-1.04) mg/dL Est GFR (CKD-EPI)AfAm >90 (>60 ml/min/1.73 sqM) Est GFR (CKD-EPI)NonAf 83 (>60 ml/min/1.73 sqM) Glucose 78 (74-99) mg/dL POC Glucose (mg/dL) (75-99) mg/dL POC Glu Institution Librarian ID Estimated Ave Glu mg/dL 82 Hemoglobin A1c 4.5 (4.0-6.0) % Plasma Lactic Acid Claude (0.7-2.0) mmol/L Calcium 7.0 L (8.4-10.2) mg/dL Magnesium 1.6 (1.6-2.3) mg/dL Total Creatine Kinase (30-135) U/L CK-MB (CK-2) (0.0-2.4) ng/mL CK-MB (CK-2) Rel Index Troponin I 0.058 H* (0.000-0.034) ng/mL Serum Alcohol mg/dL 01/22/18 01/22/18 01/22/18 Range/Units 17:18 21:09 23:52 WBC (3.8-10.6) k/uL RBC (3.80-5.40) m/uL Hgb (11.4-16.0) gm/dL Hct (34.0-46.0) % MCV (80.0-100.0) fL MCH (25.0-35.0) pg MCHC (31.0-37.0) g/dL RDW (11.5-15.5) % Plt Count (150-450) k/uL Neutrophils % % Lymphocytes % % Monocytes % % Eosinophils % % Basophils % % Neutrophils # (1.3-7.7) k/uL Lymphocytes # (1.0-4.8) k/uL Monocytes # (0-1.0) k/uL Eosinophils # (0-0.7) k/uL Basophils # (0-0.2) k/uL Hypochromasia Anisocytosis Macrocytosis Sodium (137-145) mmol/L Potassium (3.5-5.1) mmol/L Chloride (98-107) mmol/L Carbon Dioxide (22-30) mmol/L Anion Gap mmol/L BUN (7-17) mg/dL Creatinine (0.52-1.04) mg/dL Est GFR (CKD-EPI)AfAm (>60 ml/min/1.73 sqM) Est GFR (CKD-EPI)NonAf (>60 ml/min/1.73 sqM) Glucose (74-99) mg/dL POC Glucose (mg/dL) 123 H 121 H (75-99) mg/dL POC Glu Institution Librarian Harleen Romero Nichole [address] Glu mg/dL Hemoglobin A1c (4.0-6.0) % Plasma Lactic Acid Claude (0.7-2.0) mmol/L Calcium (8.4-10.2) mg/dL Magnesium (1.6-2.3) mg/dL Total Creatine Kinase (30-135) U/L CK-MB (CK-2) 3.3 H* (0.0-2.4) ng/mL CK-MB (CK-2) Rel Index Troponin I 0.057 H* (0.000-0.034) ng/mL Serum Alcohol mg/dL 01/22/18 01/23/18 01/23/18 Range/Units 23:52 06:27 06:28 WBC (3.8-10.6) k/uL RBC (3.80-5.40) m/uL Hgb (11.4-16.0) gm/dL Hct (34.0-46.0) % MCV (80.0-100.0) fL MCH (25.0-35.0) pg MCHC (31.0-37.0) g/dL RDW (11.5-15.5) % Plt Count (150-450) k/uL Neutrophils % % Lymphocytes % % Monocytes % % Eosinophils % % Basophils % % Neutrophils # (1.3-7.7) k/uL Lymphocytes # (1.0-4.8) k/uL Monocytes # (0-1.0) k/uL Eosinophils # (0-0.7) k/uL Basophils # (0-0.2) k/uL Hypochromasia Anisocytosis Macrocytosis Sodium 140 (137-145) mmol/L Potassium 2.9 L* 3.5 (3.5-5.1) mmol/L Chloride 112 H (98-107) mmol/L Carbon Dioxide 19 L (22-30) mmol/L Anion Gap 9 mmol/L BUN 18 H (7-17) mg/dL Creatinine 0.56 (0.52-1.04) mg/dL Est GFR (CKD-EPI)AfAm >90 (>60 ml/min/1.73 sqM) Est GFR (CKD-EPI)NonAf >90 (>60 ml/min/1.73 sqM) Glucose 109 H (74-99) mg/dL POC Glucose (mg/dL) 135 H (75-99) mg/dL POC Glu Institution Librarian Adarsh Bauer [address] Glu mg/dL Hemoglobin A1c (4.0-6.0) % Plasma Lactic Acid Claude (0.7-2.0) mmol/L Calcium 7.6 L (8.4-10.2) mg/dL Magnesium 2.1 1.9 (1.6-2.3) mg/dL Total Creatine Kinase (30-135) U/L CK-MB (CK-2) (0.0-2.4) ng/mL CK-MB (CK-2) Rel Index Troponin I (0.000-0.034) ng/mL Serum Alcohol mg/dL 01/23/18 Range/Units 06:28 WBC 25.4 H* (3.8-10.6) k/uL RBC 3.56 L (3.80-5.40) m/uL Hgb 11.6 (11.4-16.0) gm/dL Hct 36.5 (34.0-46.0) % MCV 102.4 H (80.0-100.0) fL MCH 32.6 (25.0-35.0) pg MCHC 31.9 (31.0-37.0) g/dL RDW 17.4 H (11.5-15.5) % Plt Count 334 (150-450) k/uL Neutrophils % 93 % Lymphocytes % 1 % Monocytes % 5 % Eosinophils % 0 % Basophils % 0 % Neutrophils # 23.7 H (1.3-7.7) k/uL Lymphocytes # 0.3 L (1.0-4.8) k/uL Monocytes # 1.1 H (0-1.0) k/uL Eosinophils # 0.0 (0-0.7) k/uL Basophils # 0.1 (0-0.2) k/uL Hypochromasia Slight Anisocytosis Slight Macrocytosis Moderate Sodium (137-145) mmol/L Potassium (3.5-5.1) mmol/L Chloride (98-107) mmol/L Carbon Dioxide (22-30) mmol/L Anion Gap mmol/L BUN (7-17) mg/dL Creatinine (0.52-1.04) mg/dL Est GFR (CKD-EPI)AfAm (>60 ml/min/1.73 sqM) Est GFR (CKD-EPI)NonAf (>60 ml/min/1.73 sqM) Glucose (74-99) mg/dL POC Glucose (mg/dL) (75-99) mg/dL POC Glu Institution Librarian ID Estimated Ave Glu mg/dL Hemoglobin A1c (4.0-6.0) % Plasma Lactic Acid Claude (0.7-2.0) mmol/L Calcium (8.4-10.2) mg/dL Magnesium (1.6-2.3) mg/dL Total Creatine Kinase (30-135) U/L CK-MB (CK-2) (0.0-2.4) ng/mL CK-MB (CK-2) Rel Index Troponin I (0.000-0.034) ng/mL Serum Alcohol mg/dL Disposition Clinical Impression: Fall, Failure to thrive in adult Disposition: ADMITTED IP TO THIS HOSP Condition: Poor Is patient prescribed a controlled substance at d/c from ED?: No
[2018-01-21 21:52] LABS: Anisocytosis Slight; Basophils % (A) 0 %; Eosinophils % (A) 0 %; HCT 38.7 % (34.0-46.0); HGB 12.2 gm/dL (11.4-16.0); Hypochromasia Slight; Lymphocytes # (A) 0.8 k/uL (1.0-4.8); Lymphocytes % (A) 8 %; MCH 32.5 pg (25.0-35.0); MCHC 31.5 g/dL (31.0-37.0); MCV 103.2 fL (80.0-100.0); Macrocytosis Moderate; Monocytes # (A) 0.8 k/uL (0-1.0); Monocytes % (A) 8 %; Neutrophils % (A) 82 %; Platelet Count 372 k/uL (150-450); RBC 3.75 m/uL (3.80-5.40); WBC 9.8 k/uL (3.8-10.6)
[2018-01-21 22:02] LABS: Alcohol <10 mg/dL; Anion Gap 14 mmol/L; Blood Urea Nitrogen 32 mg/dL (7-17); Calcium 7.9 mg/dL (8.4-10.2); Carbon Dioxide 21 mmol/L (22-30); Chloride 101 mmol/L (98-107); Glucose 93 mg/dL (74-99); Magnesium 1.6 mg/dL (1.6-2.3); Potassium 3.7 mmol/L (3.5-5.1); Sodium 136 mmol/L (137-145)
[2018-01-21] MEDS ORDERED: SODIUM CHLORIDE 0.9% 500 ML IV STA (22:29)
[2018-01-22] MEDS ORDERED: NALOXONE 0.4 MG/ML 1 ML VIAL IV PRN (00:21)
[2018-01-22] MEDS: GABAPENTIN 400 MG CAP PO SCH ×2 (08:31→14:24)
[2018-01-22] MEDS: QUEtiapine 25 MG TAB PO SCH ×2 (08:31→21:10)
[2018-01-22 12:15] LABS: Glucose,Whole Blood 84 mg/dL (75-99)
[2018-01-22] MEDS ORDERED: SODIUM CHLORIDE 0.9% 500 ML IV ONE (12:17)
[2018-01-22] MEDS ORDERED: SODIUM CHLORIDE 0.9% 1,000 ML IV ONE (12:28)
[2018-01-22] MEDS ORDERED: Magnesium Replacement Protocol 1 EACH MISC MISCELLANE PRN (12:38)
[2018-01-22] MEDS ORDERED: Potassium Replacement Protocol 1 EACH MISC MISCELLANE PRN (12:38)
[2018-01-22 12:47] LABS: Anisocytosis Slight; Basophils % (A) 0 %; Eosinophils % (A) 0 %; HCT 33.2 % (34.0-46.0); HGB 10.4 gm/dL (11.4-16.0); Hypochromasia Moderate; Lymphocytes # (A) 0.8 k/uL (1.0-4.8); Lymphocytes % (A) 13 %; MCH 32.2 pg (25.0-35.0); MCHC 31.3 g/dL (31.0-37.0); MCV 102.9 fL (80.0-100.0); Macrocytosis Moderate; Mean Platelet Volume 7.1; Monocytes # (A) 0.5 k/uL (0-1.0); Monocytes % (A) 9 %; Neutrophils # (A) 4.7 k/uL (1.3-7.7); Neutrophils % (A) 75 %; Platelet Count 300 k/uL (150-450); RBC 3.23 m/uL (3.80-5.40); RDW 16.9 % (11.5-15.5); WBC 6.2 k/uL (3.8-10.6)
[2018-01-22 12:50] LABS: Anion Gap 11 mmol/L; Blood Urea Nitrogen 25 mg/dL (7-17); Carbon Dioxide 19 mmol/L (22-30); Chloride 109 mmol/L (98-107); Glucose 78 mg/dL (74-99); Magnesium 1.6 mg/dL (1.6-2.3); Sodium 139 mmol/L (137-145)
[2018-01-22 12:59] LABS: Potassium 2.7 mmol/L (3.5-5.1)
[2018-01-22] MEDS ORDERED: DEXTROSE 5%-0.9% NACL 1,000 ML IV SCH (13:00)
--- NOTE | 2018-01-22 13:39 | CT ---
EXAMINATION TYPE: CT brain wo con DATE OF EXAM: 01/22/2018 COMPARISON: CT brain 01/03/2018 HISTORY: Altered mental status, recent fall CT DLP: 1147 mGycm Automated exposure control for dose reduction was used. Helical imaging through the brain FINDINGS: There is no significant interval change. The calvarium is intact. Orbits show a symmetric appearance. There is no hemorrhage or hydrocephalus is evident. White matter density changes are again seen. Cor tical atrophy is mild. IMPRESSION: STABLE EXAM, NO ACUTE ABNORMALITIES EVIDENT.
[2018-01-22 13:43] LABS: Creatine Kinase MB 4.6 ng/mL (0.0-2.4)
[2018-01-22] MEDS: POTASSIUM CHLORIDE 10 MEQ in WATER FOR INJECTION 1 100ML.BAG IVPB SCH ×2 (15:25→17:04)
[2018-01-22] MEDS: MAGNESIUM SULFATE-D5W PMX 1 GM in DEXTROSE/WATER 1 100ML.BAG IVPB SCH ×2 (15:26→17:03)
--- NOTE | 2018-01-22 16:05 | P.CONS ---
History of Present Illness - Reason for Consult Consult date: 01/22/18 Altered mental status - Chief Complaint Altered mental status - History of Present Illness This 72-year-old female being evaluated by the neurology service for altered mental status. She was brought to the emergency room altered mental status after having been found. Altered state of consciousness. The nurse reports it was reported to her that she was found in a couple days worth of he continues to close. She did have an admission last month Hospital for altered mental status, alcohol intoxication, acute delirium, bipolar disorder and urinary tract infection. She has a history of chronic pain from the lumbar spine. Her home medications include MS Contin 60 mg every 12 hours and [place] 10-3 times a day. He drinks alcohol daily. At the time of my exam and EEG has just been performed. Initial CT in the emergency room showed no acute intracranial abnormalities. It did show chronic small vessel ischemic changes that are unchanged from her Jan 03 2018 study. Review her urine shows she is afebrile and her laboratory workup was essentially unremarkable. Review of Systems All systems: negative Constitutional: Reports as per HPI Past Medical History Past Medical History: GERD/Reflux Additional Past Medical History / Comment(s): pain clinic treatment, back pain, ARTHRITIS,SPINAL STENOSIS,SCOLIOSIS, SPONDYLOSIS, DDD, BULGING DISCS, PINCHED NERVES. HAS HAD LOOSE TO WATERYS TOOLS SINCE GASTRIC SX UNLESS SHE TAKES HER PAIN PILLS THAT BIND HER A BIT. History of Any Multi-Drug Resistant Organisms: None Reported Past Surgical History: Bariatric Surgery, Tubal Ligation Additional Past Surgical History / Comment(s): NAMRATA EN Y GASTRIC BYPASS Past Anesthesia/Blood Transfusion Reactions: No Reported Reaction Additional Past Anesthesia/Blood Transfusion Reaction / Comm: SON HAD REACTION TO ANESTHESIA AND WAS ON A VENT-FAMILY WAS TESTED Past Psychological History: Anxiety, Depression Smoking Status: Light tobacco smoker Past Alcohol Use History: Abuse, Daily Additional Past Alcohol Use History / Comment(s): HAS BEEN smoking on and off since a teenager, currently 2-3 cig per day, admits to drinking alcohol heavily. states she drinks beer and liquor. Past Drug Use History: Prescription Drug Abuse Additional Drug Use History / Comment(s): Legal guardian says the patient smokes cigarettes occasionally. Says she drinks alcohol heavily at times. He was unaware when she last had a drink but said it was most likely the day she was brought in to the hospital. Says she takes prescription pain medication but is unaware if she takes any other drugs. - Past Family History Son(s) Additional Family Medical History / Comment(s): SON HAD PROBLEM WITH ANESTHESIA WAS ON A VENT-FAMILY WAS TESTED Mother Family Medical History: Myocardial Infarction ([place]) Father Family Medical History: Cancer, Prostate Disorder Additional Family Medical History / Comment(s): prostate cancer Brother(s) Additional Family Medical History / Comment(s): lung Medications and Allergies Home Medications Medication Instructions Recorded Confirmed Type Fluticasone Nasal [place] [Flonase 2 spr EA NOSTRIL DAILY PRN 08/16/17 01/22/18 History Nasal [place]] Ibuprofen [Motrin] 600 mg PO TID PRN 08/16/17 01/22/18 History Loperamide HCl [Imodium A-D] 2 mg PO TID PRN 08/16/17 01/22/18 History Morphine Sulfate ER [Ms Contin] 60 mg PO BID 08/16/17 01/22/18 History Ergocalciferol [Vitamin D2 50,000 unit PO Q7D 10/19/17 01/22/18 History (DRISDOL)] Gabapentin [Neurontin] 400 mg PO QID 12/12/17 01/22/18 History Olopatadine HCl [Pataday] 1 drop BOTH EYES BID 12/12/17 01/22/18 History SILVER sulfADIAZINE Cream 1 applic TOPICAL BID 12/12/17 01/22/18 History [Silvadene 1% Cream] QUEtiapine [SEROquel] 25 mg PO BID #30 tab 12/19/17 01/22/18 Rx Cyanocobalamin (Vitamin B-12) 1,000 mcg PO DAILY 01/22/18 01/22/18 History [Vitamin B-12] DULoxetine HCL [Cymbalta] 60 mg PO BID 01/22/18 01/22/18 History Furosemide [Lasix] 40 mg PO DAILY 01/22/18 01/22/18 History Hydrocodone/Acetaminophen [[place] 1 tab PO BID PRN 01/22/18 01/22/18 History 10-325] Loratadine [Claritin] 10 mg PO DAILY 01/22/18 01/22/18 History Potassium Chloride [Klor-Con 10] 10 meq PO DAILY 01/22/18 01/22/18 History Allergies Allergy/AdvReac Type Severity Reaction Status Date / Time escitalopram oxalate Allergy Rash/Hives Verified 01/21/18 20:44 [From [facility] [employer]] Physical Exam Vitals: Vital Signs Temp Pulse Pulse Resp BP BP Pulse Ox 01/22/18 13:20 96.7 F L 102 H 18 86/52 91 L 01/22/18 12:40 102 H 86/50 01/22/18 12:00 97.2 F L 106 H 98 H 75/46 97 01/22/18 11:45 98.1 F 98 18 82/47 98 01/22/18 11:00 102 H 18 01/22/18 09:10 98.2 F 78 20 121/67 98 01/22/18 08:35 18 01/22/18 03:20 96.8 F L 89 18 136/56 96 01/22/18 02:47 97 F L 87 18 110/71 97 01/22/18 01:43 98.1 F 77 18 113/53 97 01/21/18 23:21 100 01/21/18 23:17 97.0 F L 72 18 83/52 01/21/18 20:38 98.4 F 102 H 18 103/42 95 Intake and Output 01/22/18 01/22/18 01/22/18 06:59 14:59 22:59 Other: Voiding Method Diaper Diaper Incontinent Incontinent # Voids 1 Weight 56.699 kg - Constitutional General appearance: no acute distress, thin - EENT Eyes: no abnormal pupil, EOMI, PERRLA, no ptosis ENT: hearing grossly normal - Neck Neck: normal ROM, no rigidity - Respiratory Respiratory: negative: prolonged expiration, prolonged inspiration - Cardiovascular Rhythm: regular - Gastrointestinal General gastrointestinal: no distended, no tenderness - Neurologic The patient is sleeping but easily awoken, but falls asleep. She is oriented to person and place but not time. Speech is mildly dysarthric and language seems normal. There is no facial asymmetry. Strength is 5 out of 5 in bilateral upper and lower extremities although testing is limited due to her limited cooperation. There is no sensory deficit noted. No tremors or seizures are seen, although she is quite fidgety while awake. Cranial nerves II through XII are intact globally. Results CBC & Chem 7: 01/22/18 12:27 18 12:27 Labs: Abnormal Lab Results - Last 24 Hours (Table) 01/21/18 01/21/18 01/22/18 Range/Units 21:21 21:21 12:27 RBC 3.75 L (3.80-5.40) m/uL Hgb (11.4-16.0) gm/dL Hct (34.0-46.0) % MCV 103.2 H (80.0-100.0) fL RDW 17.0 H (11.5-15.5) % Neutrophils # 8.0 H (1.3-7.7) k/uL Lymphocytes # 0.8 L (1.0-4.8) k/uL Sodium 136 L (137-145) mmol/L Potassium (3.5-5.1) mmol/L Chloride (98-107) mmol/L Carbon Dioxide 21 L (22-30) mmol/L BUN 32 H (7-17) mg/dL Calcium 7.9 L (8.4-10.2) mg/dL CK-MB (CK-2) 4.6 H* (0.0-2.4) ng/mL 01/22/18 01/22/18 Range/Units 12:27 12:27 RBC 3.23 L (3.80-5.40) m/uL Hgb 10.4 L (11.4-16.0) gm/dL Hct 33.2 L (34.0-46.0) % MCV 102.9 H (80.0-100.0) fL RDW 16.9 H (11.5-15.5) % Neutrophils # (1.3-7.7) k/uL Lymphocytes # 0.8 L (1.0-4.8) k/uL Sodium (137-145) mmol/L Potassium 2.7 L* (3.5-5.1) mmol/L Chloride 109 H (98-107) mmol/L Carbon Dioxide 19 L (22-30) mmol/L BUN 25 H (7-17) mg/dL Calcium 7.0 L (8.4-10.2) mg/dL CK-MB (CK-2) (0.0-2.4) ng/mL Assessment and Plan (1) Acute encephalopathy Current Visit: Yes Status: Suspected Code(s): G93.40 - ENCEPHALOPATHY, UNSPECIFIED SNOMED Code(s): 15666946 (2) Chronic pain Current Visit: Yes Status: Chronic Code(s): G89.29 - OTHER CHRONIC PAIN SNOMED Code(s): 41723418 (3) Chronic alcohol abuse Current Visit: Yes Status: Chronic Code(s): F10.10 - ALCOHOL ABUSE, UNCOMPLICATED SNOMED Code(s): 952849485 (4) Alcohol withdrawal syndrome Current Visit: No Status: Suspected Code(s): F10.239 - ALCOHOL DEPENDENCE WITH WITHDRAWAL, UNSPECIFIED SNOMED Code(s): 094727115 (5) Altered mental status Current Visit: No Status: Acute Code(s): R41.82 - ALTERED MENTAL STATUS, UNSPECIFIED SNOMED Code(s): 444588852 Plan: This patient with a long history of chronic alcohol use is likely encephalopathic from multiple factors. She is on high-dose opioid pain medication. Thought should be given to decrease her daily dosage. She may also be experiencing alcohol withdrawal. Recommend fall precautions and neurological checks. An EEG has been performed and we will make recommendations based on results of study. Consider repeat psychological evaluation. We will continue to follow. I have performed a history and physical on the above patient. I have reviewed the above note, and agree.
[2018-01-22] MEDS: ENOXAPARIN 40 MG/0.4 ML SYRINGE SQ SCH (17:04)
--- NOTE | 2018-01-22 17:16 | HP ---
HISTORY AND PHYSICAL DATE OF ADMISSION: 01/22/2018 PRESENTING COMPLAINT: Altered mental status. HISTORY OF PRESENTING COMPLAINT: This is a 72-year-old patient who was admitted through the ER. Not really much history was available from the patient. History is obtained through the ER notes and the nursing staff. Apparently patient has a caregiver at home and patient was found to be having altered mental status and found to be in feces and urine; may have been down for 2 or 3 days. Adult Protective Services were called. When I saw this patient earlier today, the patient was rather lethargic and A-team had already been called. Her blood pressure was running low, about 80 systolic, though patient was warm and perfused. The patient was slightly fidgety but not really answering questions. Patient's heart rate was controlled. Pupils are not pinpoint and there was no obvious seizure-like activity. I ordered fluid boluses. EKG did show some ST-segment changes. I ordered a STAT CT scan of the brain that came back not showing any stroke. Ordered neuro checks, troponins. Cardiology and neurology consultations. I also ordered an EEG. Patient was moved from the medical floor to the selective floor with telemetry. It may be noted that the patient was here over a month ago and at that time was felt to have delirium through some of her medications. REVIEW OF SYSTEMS: Unable to obtain, as patient is not able to give any history. PAST MEDICAL HISTORY: 1. Cedric-en-Y gastric bypass surgery. 2. Chronic scoliosis. 3. Primary osteoarthritis. 4. GERD. 5. Mild cognitive impairment. 6. Chronic pain, being followed by Dr. Rodgers. 7. Bipolar disorder. 8. Spondylosis. 9. Herniated disc. PAST SURGICAL HISTORY: Cedric-en-Y gastric bypass surgery. PSYCH HISTORY: Anxiety and depression. SOCIAL HISTORY: Apparently patient has been smoking on and off since being a teenager and apparently has been drinking alcohol heavily. The patient has done prescription drug abuse in the past. Legal guardian says she smokes cigarettes occasionally. FAMILY HISTORY: Myocardial infarction. HOME MEDICATIONS: 1. Silvadene cream 1% topically b.i.d. 2. Seroquel 25 mg b.i.d. 3. Potassium 10 mEq p.o. daily. 4. Pataday 1 drop both eyes b.i.d. 5. Vitamin D2 50,000 units p.o. q.7 days. 6. [place] 10 one tablet p.o. b.i.d. p.r.n. 7. MS Contin 60 mg p.o. b.i.d. 8. Claritin 10 mg p.o. daily. 9. Lasix 40 mg p.o. daily. 10.Flonase. 11.Imodium A-D 2 mg p.o. t.i.d. p.r.n. 12.Motrin 600 mg p.o. t.i.d. p.r.n. 13.Neurontin 400 mg p.o. t.i.d. 14.Cymbalta 60 mg b.i.d. 15.Vitamin B12 1000 mcg p.o. daily. ALLERGIES: LEXAPRO. PHYSICAL EXAMINATION: VITAL SIGNS ON PRESENTATION: Temperature 98.4, pulse 102, respiration 18, blood pressure 83/52, pulse ox 95% on room air. GENERAL APPEARANCE: Average build. Lying in bed. Lethargic, but some movement of the limbs. EYES: Pupils equal. Conjunctivae normal. HEENT: External appearance of nose and ears normal. Oral cavity dry mucous membrane. NECK: JVD unable to assess. Mass not palpable. RESPIRATORY: Effort normal. LUNGS: Fair air entry. CARDIOVASCULAR: First and second sounds normal. No edema. ABDOMEN: Soft, non-tender. Liver and spleen not palpable. LYMPHATIC: No lymph node palpable in neck or axillae. PSYCHIATRY: Unable to assess. NEUROLOGICAL: Pupils equal. No facial asymmetry. Patient is lying in bed, though she has some spontaneous movement of the arms and legs. INVESTIGATIONS: White count 9.8, hemoglobin 12.2, repeat 10.4. Potassium 3.7, repeat 2.7. BUN 32, creatinine 1.0, bicarb 19. CPK 83. Serum alcohol less than 10. CT scan of the brain unremarkable. ASSESSMENT: 1. Acute delirium, likely from a side effect of medications. It may be noted that the patient is taking Neurontin and that toxicity may make her really lethargic, and some jitteriness that the patient is exhibiting. 2. Chronic bipolar disorder. 3. Chronic pain, being followed by Dr. Rodgers. 4. Mild cognitive impairment. 5. Patient has a legal guardian. 6. Gastroesophageal reflux disease. 7. Primary osteoarthritis with chronic pain. 8. Chronic scoliosis. 9. History of Cedric-en-Y gastric bypass surgery causing the patient to have chronic diarrhea. 10.Severe hypokalemia, probably from chronic diarrhea. 11.Metabolic acidosis, probably from chronic diarrhea. PLAN: Patient was given IV fluid boluses. Will go ahead and add potassium and bicarbonate to each fluid. Neuro checks are in place. CT scan was negative. Will get a neurology opinion. Patient's EKG has shown diffuse segment changes. Will get a cardiology opinion. Will also check troponins. Will maintain aspiration precautions. Neuro checks remain in place. At this point will hold off all of patient's antipsychotics and chronic pain medication until patient comes around. Patient will be monitored closely. MMODL / IJN: [id number] /
[2018-01-22 17:38] LABS: Glucose,Whole Blood 123 mg/dL (75-99)
[2018-01-22] MEDS: DEXTROSE IV SCH ×3 (18:23)
[2018-01-22] MEDS: NACL IV SCH ×3 (18:23)
[2018-01-22] MEDS: [UNRECOGNIZED DRUG - OTHER] IV SCH ×3 (18:23)
[2018-01-22] MEDS: POTASSIUM CHLORIDE IV SCH ×3 (18:23)
--- NOTE | 2018-01-22 18:43 | EEG ---
ELECTROENCEPHALOGRAM REPORT DATE OF SERVICE: 01/22/2018 REASON FOR TESTING: Altered mental status. DESCRIPTION OF THE PROCEDURE: This EEG was performed using a 21-channel digital electroencephalograph, following international 10-20 system. DESCRIPTION OF THE RECORDING: From the beginning of the tracing, and with the patient's eyes closed, the background rhythm was mostly consisting of 6-7 Hz theta frequency in the posterior occipital leads. No obvious asymmetry is seen. Frequent muscle and movement artifacts are seen. Photic stimulation was performed with no driving response seen. No pathological waves were elicited. Hyperventilation was not performed. The patient remains awake throughout the tracing. No epileptiform discharges were seen. INTERPRETATION: This awake EEG is abnormal due to the presence of generalized slowing of the background rhythm, mostly in the theta range. This is consistent with mild encephalopathy. No epileptiform discharges were seen. The absence of epileptiform discharges does not rule out the diagnosis of epilepsy; therefore clinical correlation is recommended. EMILI / MURRAY: [id number] /
[2018-01-22] MEDS: DULoxetine HCL 60 MG CAPSULE.DR PO SCH (21:10)
[2018-01-22 21:11] LABS: Glucose,Whole Blood 121 mg/dL (75-99)
[2018-01-22] MEDS: KETOTIFEN 0.025% OPHTH DROPS 5 ML BTL BOTH EYES SCH (21:45)
[2018-01-22 22:33] LABS: Hemoglobin A1C 4.5 % (4.0-6.0)
[2018-01-23 00:25] LABS: Magnesium 2.1 mg/dL (1.6-2.3)
[2018-01-23 00:28] LABS: Potassium 2.9 mmol/L (3.5-5.1)
[2018-01-23] MEDS ORDERED: Potassium Replacement Protocol 1 EACH MISC MISCELLANE PRN (00:32)
[2018-01-23 01:10] LABS: Creatine Kinase MB 3.3 ng/mL (0.0-2.4)
[2018-01-23 01:11] LABS: Troponin I 0.057 ng/mL (0.000-0.034)
[2018-01-23] MEDS: POTASSIUM CHLORIDE 10 MEQ in WATER FOR INJECTION 1 100ML.BAG IVPB SCH ×3 (01:25→03:45)
[2018-01-23] MEDS: ACETAMINOPHEN TAB 325 MG TAB PO PRN ×2 (04:51→20:30)
[2018-01-23] MEDS: NACL IV SCH ×6 (06:02→17:27)
[2018-01-23] MEDS: [UNRECOGNIZED DRUG - OTHER] IV SCH ×6 (06:02→17:27)
[2018-01-23] MEDS: DEXTROSE IV SCH ×6 (06:02→17:27)
[2018-01-23] MEDS: POTASSIUM CHLORIDE IV SCH ×6 (06:02→17:27)
[2018-01-23 06:29] LABS: Glucose,Whole Blood 135 mg/dL (75-99)
[2018-01-23 07:20] LABS: Anion Gap 9 mmol/L; Blood Urea Nitrogen 18 mg/dL (7-17); Calcium 7.6 mg/dL (8.4-10.2); Carbon Dioxide 19 mmol/L (22-30); Chloride 112 mmol/L (98-107); Glucose 109 mg/dL (74-99); Magnesium 1.9 mg/dL (1.6-2.3); Potassium 3.5 mmol/L (3.5-5.1); Sodium 140 mmol/L (137-145)
[2018-01-23 08:17] LABS: Anisocytosis Slight; Basophils # (A) 0.1 k/uL (0-0.2); Basophils % (A) 0 %; Eosinophils % (A) 0 %; HCT 36.5 % (34.0-46.0); HGB 11.6 gm/dL (11.4-16.0); Hypochromasia Slight; Lymphocytes # (A) 0.3 k/uL (1.0-4.8); Lymphocytes % (A) 1 %; MCH 32.6 pg (25.0-35.0); MCHC 31.9 g/dL (31.0-37.0); MCV 102.4 fL (80.0-100.0); Macrocytosis Moderate; Mean Platelet Volume 7.4; Monocytes # (A) 1.1 k/uL (0-1.0); Monocytes % (A) 5 %; Neutrophils # (A) 23.7 k/uL (1.3-7.7); Neutrophils % (A) 93 %; Platelet Count 334 k/uL (150-450); RBC 3.56 m/uL (3.80-5.40); RDW 17.4 % (11.5-15.5)
[2018-01-23 08:36] LABS: WBC 25.4 k/uL (3.8-10.6)
[2018-01-23] MEDS: ENOXAPARIN 40 MG/0.4 ML SYRINGE SQ SCH (09:10)
[2018-01-23] MEDS: KETOTIFEN 0.025% OPHTH DROPS 5 ML BTL BOTH EYES SCH ×3 (09:10→20:26)
[2018-01-23] MEDS: QUEtiapine 25 MG TAB PO SCH ×2 (09:11→20:26)
[2018-01-23] MEDS: DULoxetine HCL 60 MG CAPSULE.DR PO SCH ×2 (09:11→20:26)
[2018-01-23 11:43] LABS: Glucose,Whole Blood 169 mg/dL (75-99)
--- NOTE | 2018-01-23 11:55 | P.CRDCN ---
History of Present Illness Consult date: 01/23/18 Requesting physician: Jordon Buckley Reason for Consult (text): Abnormal troponin Chief complaint: Fall History of present illness: This is a 72-year-old female, information was obtained from the medical record, patient is quite confused, difficult to arouse. It is somewhat unclear of why exactly the patient came to the hospital, apparently the police showed up at her home because the patient was found by caregiver to be on the floor possibly for a couple of days. Information was obtained from the emergency room record. CAT scan of the brain was stable, no acute abnormalities noted. EKG shows normal sinus rhythm with ST-T wave changes noted in the anterior lateral leads. Blood pressure 90/40 with a heart rate in the low 100s, temperature 100.6. White blood cell count normal on admission, 25.4 this morning, hemoglobin 11.6, platelet count 334. Sodium 140, potassium 3.5, BUN 18, creatinine 0.5. Troponin 0.057, 0.058. At the time of my examination this morning, patient is quite lethargic, will awaken to painful stimuli. Past Medical History Past Medical History: GERD/Reflux Additional Past Medical History / Comment(s): pain clinic treatment, back pain, ARTHRITIS,SPINAL STENOSIS,SCOLIOSIS, SPONDYLOSIS, DDD, BULGING DISCS, PINCHED NERVES. HAS HAD LOOSE TO WATERYS TOOLS SINCE GASTRIC SX UNLESS SHE TAKES HER PAIN PILLS THAT BIND HER A BIT. History of Any Multi-Drug Resistant Organisms: None Reported Past Surgical History: Bariatric Surgery, Tubal Ligation Additional Past Surgical History / Comment(s): NAMRATA EN Y GASTRIC BYPASS Past Anesthesia/Blood Transfusion Reactions: No Reported Reaction Additional Past Anesthesia/Blood Transfusion Reaction / Comment(s): SON HAD REACTION TO ANESTHESIA AND WAS ON A VENT-FAMILY WAS TESTED Past Psychological History: Anxiety, Depression Smoking Status: Light tobacco smoker Past Alcohol Use History: Abuse, Daily Additional Past Alcohol Use History / Comment(s): HAS BEEN smoking on and off since a teenager, currently 2-3 cig per day, admits to drinking alcohol heavily. states she drinks beer and liquor. Past Drug Use History: Prescription Drug Abuse Additional Drug Use History / Comment(s): Legal guardian says the patient smokes cigarettes occasionally. Says she drinks alcohol heavily at times. He was unaware when she last had a drink but said it was most likely the day she was brought in to the hospital. Says she takes prescription pain medication but is unaware if she takes any other drugs. - Past Family History Son(s) Additional Family Medical History / Comment(s): SON HAD PROBLEM WITH ANESTHESIA WAS ON A VENT-FAMILY WAS TESTED Mother Family Medical History: Myocardial Infarction ([place]) Father Family Medical History: Cancer, Prostate Disorder Additional Family Medical History / Comment(s): prostate cancer Brother(s) Additional Family Medical History / Comment(s): lung Medications and Allergies Home Medications Medication Instructions Recorded Confirmed Type Fluticasone Nasal [place] [Flonase 2 spr EA NOSTRIL DAILY PRN 08/16/17 01/22/18 History Nasal [place]] Ibuprofen [Motrin] 600 mg PO TID PRN 08/16/17 01/22/18 History Loperamide HCl [Imodium A-D] 2 mg PO TID PRN 08/16/17 01/22/18 History Morphine Sulfate ER [Ms Contin] 60 mg PO BID 08/16/17 01/22/18 History Ergocalciferol [Vitamin D2 50,000 unit PO Q7D 10/19/17 01/22/18 History (DRISDOL)] Gabapentin [Neurontin] 400 mg PO QID 12/12/17 01/22/18 History Olopatadine HCl [Pataday] 1 drop BOTH EYES BID 12/12/17 01/22/18 History SILVER sulfADIAZINE Cream 1 applic TOPICAL BID 12/12/17 01/22/18 History [Silvadene 1% Cream] QUEtiapine [SEROquel] 25 mg PO BID #30 tab 12/19/17 01/22/18 Rx Cyanocobalamin (Vitamin B-12) 1,000 mcg PO DAILY 01/22/18 01/22/18 History [Vitamin B-12] DULoxetine HCL [Cymbalta] 60 mg PO BID 01/22/18 01/22/18 History Furosemide [Lasix] 40 mg PO DAILY 01/22/18 01/22/18 History Hydrocodone/Acetaminophen [[place] 1 tab PO BID PRN 01/22/18 01/22/18 History 10-325] Loratadine [Claritin] 10 mg PO DAILY 01/22/18 01/22/18 History Potassium Chloride [Klor-Con 10] 10 meq PO DAILY 01/22/18 01/22/18 History Allergies Allergy/AdvReac Type Severity Reaction Status Date / Time escitalopram oxalate Allergy Rash/Hives Verified 01/21/18 20:44 [From [facility] [employer]] Physical Exam Vitals: Vital Signs Temp Pulse Resp BP BP Pulse Ox 01/23/18 09:10 100.6 F H 01/23/18 08:00 99.7 F H 106 H 18 90/48 92 L 01/23/18 04:00 98.9 F 102 H 16 107/56 91 L 01/22/18 23:32 90 14 94/51 93 L 01/22/18 22:32 99 14 88/54 91 L 01/22/18 21:06 99 16 89/54 92 L 01/22/18 19:50 92/51 01/22/18 19:35 98.7 F 98 16 84/42 91 L 01/22/18 15:30 97.6 F 99 18 80/44 92 L 01/22/18 13:20 96.7 F L 102 H 18 86/52 91 L 01/22/18 12:40 102 H 86/50 01/22/18 12:00 97.2 F L 106 H 98 H 75/46 97 01/22/18 11:45 98.1 F 98 18 82/47 98 Intake and Output 01/22/18 01/23/18 01/23/18 22:59 06:59 14:59 Intake Total 800 800 Balance 800 800 Intake: IV 800 800 Dextrose 5%-0.9% NaCl 1, 800 800 000 ml @ 100 mls/hr IV . [id number] KESHA with Potassium Chloride 40 meq with Sodium Bicarb (1 Meq/ml) 50 ml Rx#: [id number] Other: Voiding Method Bedpan Bedpan Diaper Diaper Incontinent Incontinent # Voids 1 Weight 56 kg PHYSICAL EXAMINATION: GENERAL: 72-year-old female lethargic, arouses to painful stimuli HEENT: Head is atraumatic, normocephalic. Pupils equal, round. Sclera anicteric. Conjunctiva are clear. Mucous membranes of the mouth are moist. Neck is supple. There is no elevated jugular venous pressure.] bruit is heard. HEART EXAMINATION: Heart S1, S2 normal. No murmur or gallop heard. CHEST EXAMINATION: Lungs are clear to auscultation and precussion. No chest wall tenderness is noted on palpation or with deep breathing. ABDOMEN: Soft, nontender. Bowel sounds are heard. No organomegaly noted. EXTREMITIES: 2+ peripheral pulses with no evidence of peripheral edema and no calf tenderness noted. NEUROLOGIC [patient is lethargic, arouses to painful stimuli. Results 01/23/18 06:28 01/23/18 06:28 Cardiac Enzymes 01/22/18 01/22/18 01/22/18 Range/Units 12:27 16:42 23:52 CK-MB (CK-2) 4.6 H* 3.3 H* (0.0-2.4) ng/mL Troponin I 0.058 H* 0.057 H* (0.000-0.034) ng/mL CBC 01/22/18 01/23/18 Range/Units 12:27 06:28 WBC 6.2 25.4 H* (3.8-10.6) k/uL RBC 3.23 L 3.56 L (3.80-5.40) m/uL Hgb 10.4 L 11.6 (11.4-16.0) gm/dL Hct 33.2 L 36.5 (34.0-46.0) % Plt Count 300 334 (150-450) k/uL Comprehensive Metabolic Panel 01/22/18 01/22/18 01/23/18 Range/Units 12:27 23:52 06:28 Sodium 139 140 (137-145) mmol/L Potassium 2.7 L* 2.9 L* 3.5 (3.5-5.1) mmol/L Chloride 109 H 112 H (98-107) mmol/L Carbon Dioxide 19 L 19 L (22-30) mmol/L BUN 25 H 18 H (7-17) mg/dL Creatinine 0.73 0.56 (0.52-1.04) mg/dL Glucose 78 109 H (74-99) mg/dL Calcium 7.0 L 7.6 L (8.4-10.2) mg/dL Current Medications Generic Name Dose Route Start Last Admin Trade Name Freq PRN Reason Stop Dose Admin Acetaminophen 650 mg 01/22/18 00:21 01/23/18 04:51 Tylenol Tab PO 650 mg Q6HR PRN Administration Mild Pain or Fever > 100.5 Duloxetine HCl 60 mg 01/22/18 21:00 01/23/18 09:11 Cymbalta PO 60 mg BID KESHA Administration Enoxaparin Sodium 40 mg 01/22/18 16:00 01/23/18 09:10 Lovenox SQ 40 mg DAILY KESHA Administration Potassium Chloride 40 meq/ 1,070 mls @ 100 mls/hr 01/22/18 18:00 01/23/18 06: 02 Sodium Bicarbonate 50 ml/ IV 100 mls/hr Dextrose/Sodium Chloride .[id number] KESHA Administration Ketotifen Fumarate 1 drops 01/22/18 21:00 01/23/18 09:16 Zaditor BOTH EYES Not Given BID KESHA Miscellaneous Information 1 each 01/22/18 12:38 Magnesium Per Protocol MISCELLANE DAILY PRN Per Protocol Protocol Miscellaneous Information 1 each 01/22/18 12:38 Potassium Per Protocol MISCELLANE DAILY PRN Per Protocol Protocol Naloxone HCl 0.2 mg 01/22/18 00:21 Narcan IV Q2M PRN Opioid Reversal Quetiapine Fumarate 25 mg 01/22/18 09:00 01/23/18 09:11 Seroquel PO 25 mg BID KESHA Administration Silver Sulfadiazine 1 applic 01/22/18 21:00 01/23/18 09:16 Silvadene Cream TOPICAL Not Given BID KESHA Intake and Output 01/22/18 01/23/18 01/23/18 22:59 06:59 14:59 Intake Total 800 800 Balance 800 800 Intake: IV 800 800 Dextrose 5%-0.9% NaCl 1, 800 800 000 ml @ 100 mls/hr IV . [id number] KESHA with Potassium Chloride 40 meq with Sodium Bicarb (1 Meq/ml) 50 ml Rx#: [id number] Other: Voiding Method Bedpan Bedpan Diaper Diaper Incontinent Incontinent # Voids 1 Weight 56 kg 01/23/18 06:28 01/23/18 06:28 EKG Interpretations (text) EKG shows normal sinus rhythm with ST-T wave changes noted in the anterior lateral leads. Assessment and Plan Plan: Assessment and plan #1 unresponsiveness with possible acute delirium. Neurology following #2 bipolar disorder #3 nicotine dependence #4 cognitive impairment # 5 chronic scoliosis #6 abnormal troponin not consistent with acute coronary syndrome. #7 history of prescription drug abuse and EtOH abuse Plan From cardiology's perspective, we will obtain an echocardiogram with Doppler study. Troponin abnormality not consistent with acute coronary syndrome with no rise and fall pattern noted. We will review the echocardiogram with Doppler study, follow this patient with you now on an as-needed basis only, least on hesitate to call with any questions DNP note has been reviewed, I agree with a documented findings and plan of care. Patient was seen and examined.
[2018-01-23 12:48] LABS: Appearance,Urine Cloudy (Clear); Bacteria,Urine Many /hpf; Bilirubin,Urine Negative (Negative); Blood,Urine Negative (Negative); Color,Urine Yellow; Glucose,Urine (UA) Negative (Negative); Hyaline Casts,Urine 1 /lpf (0-2); Ketones,Urine Trace (Negative); Leukocyte Esterase,Urine Moderate (Negative); Nitrite,Urine Positive (Negative); Protein,Urine Trace (Negative); RBC,Urine <1 /hpf (0-5); Specific Gravity,Urine 1.014 (1.001-1.035); Squamous Epithelial Cell,Urine <1 /hpf (0-4); WBC,Urine 13 /hpf (0-5)
[2018-01-23] MEDS: cefTRIAXone IN SWFI 1,000 MG/10 ML SYRINGE IVP SCH (12:52)
--- NOTE | 2018-01-23 12:57 | XR ---
EXAMINATION TYPE: XR chest 1V portable DATE OF EXAM: 01/23/2018 COMPARISON: 01/03/2018 HISTORY: Hypoxemia. TECHNIQUE: Single frontal view of the chest is obtained. FINDINGS: There are overall low lung volumes creating crowding of the pulmonary vasculature. There i s no focal air space opacity, pleural effusion, or pneumothorax seen. The cardiac silhouette size is within normal limits. The osseous structures are intact. There is generalized osseous demineraliza tion and degenerative changes of the shoulders as well as of the thoracic spine. IMPRESSION: Chronic changes with no acute cardiopulmonary process.
--- NOTE | 2018-01-23 16:18 | P.PN ---
Subjective Progress Note Date: 01/23/18 Principal diagnosis: Altered mental status 72-year-old female continuing to be evaluated by the neurology service for altered mental status. She has a history of recent hospitalization for similar symptoms. She has a history of alcohol abuse. She has a history of chronic pain for which she takes high-dose daily opiates. These have been held since her admission. She drinks daily. She was found to have a urinary tract infection and has just been started on IV antibiotics. Her level of consciousness is a little bit better today but she still a little obtunded. She continues to exhibit no focal neurological symptoms. EEG has been performed and it did show mild encephalopathy. Objective - Vital Signs Vital signs: Vital Signs Temp 98.8 F 01/23/18 12:00 Pulse 98 01/23/18 12:00 Resp 18 01/23/18 12:00 BP 92/50 01/23/18 12:00 Pulse Ox 92 L 01/23/18 12:00 Intake & Output 01/22/18 01/23/18 01/23/18 18:59 06:59 18:59 Intake Total 1600 800 Balance 1600 800 Weight 56.699 kg 56 kg Intake: IV 1600 800 Dextrose 5%-0.9% NaCl 1, 1600 800 000 ml @ 100 mls/hr IV . [id number] KESHA with Potassium Chloride 40 meq with Sodium Bicarb (1 Meq/ml) 50 ml Rx#: [id number] Other: Voiding Method Diaper Bedpan Bedpan Incontinent Diaper Diaper Incontinent Incontinent # Voids 1 2 # Bowel Movements 1 - Constitutional General appearance: Present: average body habitus, no acute distress - EENT Eyes: Present: EOMI, PERRLA. Absent: abnormal pupil, ptosis ENT: Present: hearing grossly normal - Neck Neck: Present: normal ROM. Absent: rigidity - Respiratory Respiratory: negative: prolonged expiration, prolonged inspiration - Cardiovascular Rhythm: regular - Gastrointestinal General gastrointestinal: Absent: distended, tenderness - Neurologic Neurologic Comment(s): The patient remains drowsy but easily awoken. She is oriented to person and partially to place and not to time. There is no dysarthria. Language seems normal. There is no facial asymmetry. There is no lateralizing weakness. [employer] Reworker strength is good. There is no sensory deficit in any extremity. Tremors or seizure-like activities are seen. - Labs CBC & Chem 7: 06/13/18 06:28 01/23/18 06:28 Labs: Abnormal Lab Results - Last 24 Hours (Table) 01/22/18 01/22/18 01/22/18 Range/Units 16:42 17:18 21:09 WBC (3.8-10.6) k/uL RBC (3.80-5.40) m/uL MCV (80.0-100.0) fL RDW (11.5-15.5) % Neutrophils # (1.3-7.7) k/uL Lymphocytes # (1.0-4.8) k/uL Monocytes # (0-1.0) k/uL Potassium (3.5-5.1) mmol/L Chloride (98-107) mmol/L Carbon Dioxide (22-30) mmol/L BUN (7-17) mg/dL Glucose (74-99) mg/dL POC Glucose (mg/dL) 123 H 121 H (75-99) mg/dL Calcium (8.4-10.2) mg/dL CK-MB (CK-2) (0.0-2.4) ng/mL Troponin I 0.058 H* (0.000-0.034) ng/mL Urine Appearance (Clear) Urine Protein (Negative) Urine Ketones (Negative) Urine Nitrite (Negative) Ur Leukocyte Esterase (Negative) Urine WBC (0-5) /hpf Urine Bacteria (None) /hpf 01/22/18 01/22/18 01/23/18 Range/Units 23:52 23:52 06:27 WBC (3.8-10.6) k/uL RBC (3.80-5.40) m/uL MCV (80.0-100.0) fL RDW (11.5-15.5) % Neutrophils # (1.3-7.7) k/uL Lymphocytes # (1.0-4.8) k/uL Monocytes # (0-1.0) k/uL Potassium 2.9 L* (3.5-5.1) mmol/L Chloride (98-107) mmol/L Carbon Dioxide (22-30) mmol/L BUN (7-17) mg/dL Glucose (74-99) mg/dL POC Glucose (mg/dL) 135 H (75-99) mg/dL Calcium (8.4-10.2) mg/dL CK-MB (CK-2) 3.3 H* (0.0-2.4) ng/mL Troponin I 0.057 H* (0.000-0.034) ng/mL Urine Appearance (Clear) Urine Protein (Negative) Urine Ketones (Negative) Urine Nitrite (Negative) Ur Leukocyte Esterase (Negative) Urine WBC (0-5) /hpf Urine Bacteria (None) /hpf 01/23/18 01/23/18 01/23/18 Range/Units 06:28 06:28 11:41 WBC 25.4 H* (3.8-10.6) k/uL RBC 3.56 L (3.80-5.40) m/uL MCV 102.4 H (80.0-100.0) fL RDW 17.4 H (11.5-15.5) % Neutrophils # 23.7 H (1.3-7.7) k/uL Lymphocytes # 0.3 L (1.0-4.8) k/uL Monocytes # 1.1 H (0-1.0) k/uL Potassium (3.5-5.1) mmol/L Chloride 112 H (98-107) mmol/L Carbon Dioxide 19 L (22-30) mmol/L BUN 18 H (7-17) mg/dL Glucose 109 H (74-99) mg/dL POC Glucose (mg/dL) 169 H (75-99) mg/dL Calcium 7.6 L (8.4-10.2) mg/dL CK-MB (CK-2) (0.0-2.4) ng/mL Troponin I (0.000-0.034) ng/mL Urine Appearance (Clear) Urine Protein (Negative) Urine Ketones (Negative) Urine Nitrite (Negative) Ur Leukocyte Esterase (Negative) Urine WBC (0-5) /hpf Urine Bacteria (None) /hpf 01/23/18 Range/Units 12:15 WBC (3.8-10.6) k/uL RBC (3.80-5.40) m/uL MCV (80.0-100.0) fL RDW (11.5-15.5) % Neutrophils # (1.3-7.7) k/uL Lymphocytes # (1.0-4.8) k/uL Monocytes # (0-1.0) k/uL Potassium (3.5-5.1) mmol/L Chloride (98-107) mmol/L Carbon Dioxide (22-30) mmol/L BUN (7-17) mg/dL Glucose (74-99) mg/dL POC Glucose (mg/dL) (75-99) mg/dL Calcium (8.4-10.2) mg/dL CK-MB (CK-2) (0.0-2.4) ng/mL Troponin I (0.000-0.034) ng/mL Urine Appearance Cloudy H (Clear) Urine Protein Trace H (Negative) Urine Ketones Trace H (Negative) Urine Nitrite Positive H (Negative) Ur Leukocyte Esterase Moderate H (Negative) Urine WBC 13 H (0-5) /hpf Urine Bacteria Many H (None) /hpf Microbiology - Last 24 Hours (Table) 01/23/18 12:15 Urine Culture - Preliminary Urine,Catheterized Assessment and Plan (1) Acute encephalopathy Current Visit: Yes Status: Suspected Code(s): G93.40 - ENCEPHALOPATHY, UNSPECIFIED SNOMED Code(s): 15314980 (2) Chronic pain Current Visit: Yes Status: Chronic Code(s): G89.29 - OTHER CHRONIC PAIN SNOMED Code(s): 78159511 (3) Chronic alcohol abuse Current Visit: Yes Status: Chronic Code(s): F10.10 - ALCOHOL ABUSE, UNCOMPLICATED SNOMED Code(s): 723597780 (4) Alcohol withdrawal syndrome Current Visit: No Status: Suspected Code(s): F10.239 - ALCOHOL DEPENDENCE WITH WITHDRAWAL, UNSPECIFIED SNOMED Code(s): 202885591 (5) Altered mental status Current Visit: No Status: Acute Code(s): R41.82 - ALTERED MENTAL STATUS, UNSPECIFIED SNOMED Code(s): 265502413 (6) Urinary tract infection Current Visit: No Status: Acute Code(s): N39.0 - URINARY TRACT INFECTION, SITE NOT SPECIFIED SNOMED Code(s): 42693797 Plan: This patient with a long history of chronic alcohol use is likely encephalopathic from multiple factors. She is on high-dose opioid pain medication. Thought should be given to decrease her daily dosage. Note that she has not received her pain medications since being in. When asked about her pain today she said she is not in pain. She has and is being treated for urinary tract infection. She was dehydrated and is receiving IV fluids. Recommend fall precautions and neurological checks. Consider repeat psychological evaluation. We will follow on an as-needed basis. No further neurological workup is needed at this time. I have performed a history and physical on the above patient. I have reviewed the above note, and agree.
[2018-01-23 17:09] LABS: Glucose,Whole Blood 162 mg/dL (75-99)
[2018-01-23 20:48] LABS: Glucose,Whole Blood 182 mg/dL (75-99)
--- NOTE | 2018-01-23 21:52 | P.CONS ---
History of Present Illness - Reason for Consult Consult date: 01/23/18 - Chief Complaint Altered mental status - History of Present Illness 72-year-old female presents via EMS to the emergency center after she was found obtunded on the floor covered in urine and stool. The patient apparently has a caregiver and it's believe that the patient could've had up to 2 days of time struggling on the floor. Apparently Adult Protective Services has been contacted to help with her discharge plan. The patient had very poor mental status at admission and workup included a computed tomography scan without acute stroke and has been seen by neurology for her significant delirium. Was evidence that the patient has multiple other troubles that include bipolar disorder, recent hospitalization where she was found to have alcohol intoxication with delirium and urinary tract infection. She currently has chronic pain and has been on MS Contin in the outpatient setting. Infectious diseases consultation was requested regarding the significant leukocytosis and her skin lesions. The patient is a poor historian is mildly agitated without seizure-like activity Review of Systems ROS unobtainable: due to mental status Past Medical History Past Medical History: GERD/Reflux Additional Past Medical History / Comment(s): pain clinic treatment, back pain, ARTHRITIS,SPINAL STENOSIS,SCOLIOSIS, SPONDYLOSIS, DDD, BULGING DISCS, PINCHED NERVES. HAS HAD LOOSE TO WATERYS TOOLS SINCE GASTRIC SX UNLESS SHE TAKES HER PAIN PILLS THAT BIND HER A BIT. History of Any Multi-Drug Resistant Organisms: None Reported Past Surgical History: Bariatric Surgery, Tubal Ligation Additional Past Surgical History / Comment(s): NAMRATA EN Y GASTRIC BYPASS Past Anesthesia/Blood Transfusion Reactions: No Reported Reaction Additional Past Anesthesia/Blood Transfusion Reaction / Comm: SON HAD REACTION TO ANESTHESIA AND WAS ON A VENT-FAMILY WAS TESTED Past Psychological History: Anxiety, Depression Smoking Status: Light tobacco smoker Past Alcohol Use History: Abuse, Daily Additional Past Alcohol Use History / Comment(s): HAS BEEN smoking on and off since a teenager, currently 2-3 cig per day, admits to drinking alcohol heavily. states she drinks beer and liquor. Past Drug Use History: Prescription Drug Abuse Additional Drug Use History / Comment(s): Legal guardian says the patient smokes cigarettes occasionally. Says she drinks alcohol heavily at times. He was unaware when she last had a drink but said it was most likely the day she was brought in to the hospital. Says she takes prescription pain medication but is unaware if she takes any other drugs. Multiple hospitalizations. Apparently lives independently but has a caregiver. Adult Protective Services have now interjected and will help with her discharge plan. No experience. No animal exposures - Past Family History Son(s) Additional Family Medical History / Comment(s): SON HAD PROBLEM WITH ANESTHESIA WAS ON A VENT-FAMILY WAS TESTED Mother Family Medical History: Myocardial Infarction (NH) Father Family Medical History: Cancer, Prostate Disorder Additional Family Medical History / Comment(s): prostate cancer Brother(s) Additional Family Medical History / Comment(s): lung Medications and Allergies Home Medications and Allergies Comment(s): Current Medications Acetaminophen (Tylenol Tab) 650 mg PO Q6HR PRN PRN Reason: Mild Pain or Fever > 100.5 Last Admin: 01/23/18 04:51 Dose: 650 mg Ceftriaxone Sodium (Rocephin) 1,000 mg IVP Q24HR [facility] Last Admin: 01/23/18 12:52 Dose: 1,000 mg Duloxetine HCl (Cymbalta) 60 mg PO BID [facility] Last Admin: 01/23/18 20:26 Dose: 60 mg Enoxaparin Sodium (Lovenox) 40 mg SQ DAILY [facility] Last Admin: 01/23/18 09:10 Dose: 40 mg Potassium Chloride 40 meq/Sodium Bicarbonate 50 ml/Dextrose/Sodium Chloride 1, 070 mls @ 100 mls/hr IV .[id number] [facility] Last Admin: 01/23/18 17:27 Dose: 100 mls/hr Ketotifen Fumarate (Zaditor) 1 drops BOTH EYES BID [facility] Last Admin: 01/23/18 20:26 Dose: 1 drops Miscellaneous Information (Magnesium Per Protocol) 1 each MISCELLANE DAILY PRN ; Protocol PRN Reason: Per Protocol Miscellaneous Information (Potassium Per Protocol) 1 each MISCELLANE DAILY PRN ; Protocol PRN Reason: Per Protocol Naloxone HCl (Narcan) 0.2 mg IV Q2M PRN PRN Reason: Opioid Reversal Quetiapine Fumarate (Seroquel) 25 mg PO BID [facility] Last Admin: 01/23/18 20:26 Dose: 25 mg Silver Sulfadiazine (Silvadene Cream) 1 applic TOPICAL BID [facility] Last Admin: 01/23/18 20:26 Dose: 1 applic Home Medications Medication Instructions Recorded Confirmed Type Fluticasone Nasal [place] [Flonase 2 spr EA NOSTRIL DAILY PRN 08/16/17 01/22/18 History Nasal Gardner] Ibuprofen [Motrin] 600 mg PO TID PRN 08/16/17 01/22/18 History Loperamide HCl [Imodium A-D] 2 mg PO TID PRN 08/16/17 01/22/18 History Morphine Sulfate ER [Ms Contin] 60 mg PO BID 08/16/17 01/22/18 History Ergocalciferol [Vitamin D2 50,000 unit PO Q7D 10/19/17 01/22/18 History (DRISDOL)] Gabapentin [Neurontin] 400 mg PO QID 12/12/17 01/22/18 History Olopatadine HCl [Pataday] 1 drop BOTH EYES BID 12/12/17 01/22/18 History SILVER sulfADIAZINE Cream 1 applic TOPICAL BID 12/12/17 01/22/18 History [Silvadene 1% Cream] QUEtiapine [SEROquel] 25 mg PO BID #30 tab 12/19/17 01/22/18 Rx Cyanocobalamin (Vitamin B-12) 1,000 mcg PO DAILY 01/22/18 01/22/18 History [Vitamin B-12] DULoxetine HCL [Cymbalta] 60 mg PO BID 01/22/18 01/22/18 History Furosemide [Lasix] 40 mg PO DAILY 01/22/18 01/22/18 History Hydrocodone/Acetaminophen [[place] 1 tab PO BID PRN 01/22/18 01/22/18 History 10-325] Loratadine [Claritin] 10 mg PO DAILY 01/22/18 01/22/18 History Potassium Chloride [Klor-Con 10] 10 meq PO DAILY 01/22/18 01/22/18 History Allergies Allergy/AdvReac Type Severity Reaction Status Date / Time escitalopram oxalate Allergy Rash/Hives Verified 01/21/18 20:44 [From [facility] [place]] Physical Exam Vitals: Vital Signs Temp Pulse Resp BP Pulse Ox 01/23/18 16:00 98.6 F 90 18 89/52 94 L 01/23/18 12:00 98.8 F 98 18 92/50 92 L 01/23/18 09:10 100.6 F H 01/23/18 08:00 99.7 F H 106 H 18 90/48 92 L 01/23/18 04:00 98.9 F 102 H 16 107/56 91 L 01/22/18 23:32 90 14 94/51 93 L 01/22/18 22:32 99 14 88/54 91 L Intake and Output 01/23/18 01/23/18 01/23/18 06:59 14:59 22:59 Intake Total 800 800 240 Balance 800 800 240 Intake: IV 800 800 Dextrose 5%-0.9% NaCl 1, 800 800 000 ml @ 100 mls/hr IV . [id number] KESHA with Potassium Chloride 40 meq with Sodium Bicarb (1 Meq/ml) 50 ml Rx#: [id number] Oral 240 Other: Voiding Method Bedpan Bedpan Bedpan Diaper Diaper Diaper Incontinent Incontinent Incontinent # Voids 1 2 # Bowel Movements 1 1 Weight 56 kg 72-year-old woman presents to Hospital via EMS with altered mental status and delirium HEENT: Anicteric conjunctiva are pink and moist nasal mucosa grossly intact without significant lesions, there is no thrush. Dentition is very poor Neck: The neck is supple without significant lymphadenopathy or thyromegaly. Lungs: Symmetrical air entry is noted with scattered wheezing throughout lung machado no bronchial sounds are noted Heart: Regular rate and rhythm with an audible S1-S2, no S3 soft S4. There is no significant murmur click or rub, PMI was nondisplaced. Abdomen: Scaphoid, Positive bowel sounds soft and nontender without palpable masses or organomegaly. There was no guarding or rebound. Extremities: The upper extremities have excellent pulses they are symmetric, no significant petechiae or telangiectasia. No splinter hemorrhages were noted. Lower extremities have some trace edema without significant venous stasis. Skin: Patient has evidence of the pressure ulceration present on admission of the coccyx, right elbow, and right knee, they are full-thickness pressure ulcerations with minimal drainage at this time. Neuro: Arousable interacts minimally with the observer, attempts to answer some questions but has very poor thought content. Results CBC & Chem 7: 01/23/18 06:28 01/23/18 06:28 Labs: Abnormal Lab Results - Last 24 Hours (Table) 01/22/18 01/22/18 01/23/18 Range/Units 23:52 23:52 06:27 WBC (3.8-10.6) k/uL RBC (3.80-5.40) m/uL MCV (80.0-100.0) fL RDW (11.5-15.5) % Neutrophils # (1.3-7.7) k/uL Lymphocytes # (1.0-4.8) k/uL Monocytes # (0-1.0) k/uL Potassium 2.9 L* (3.5-5.1) mmol/L Chloride (98-107) mmol/L Carbon Dioxide (22-30) mmol/L BUN (7-17) mg/dL Glucose (74-99) mg/dL POC Glucose (mg/dL) 135 H (75-99) mg/dL Calcium (8.4-10.2) mg/dL CK-MB (CK-2) 3.3 H* (0.0-2.4) ng/mL Troponin I 0.057 H* (0.000-0.034) ng/mL Urine Appearance (Clear) Urine Protein (Negative) Urine Ketones (Negative) Urine Nitrite (Negative) Ur Leukocyte Esterase (Negative) Urine WBC (0-5) /hpf Urine Bacteria (None) /hpf 01/23/18 01/23/18 01/23/18 Range/Units 06:28 06:28 11:41 WBC 25.4 H* (3.8-10.6) k/uL RBC 3.56 L (3.80-5.40) m/uL MCV 102.4 H (80.0-100.0) fL RDW 17.4 H (11.5-15.5) % Neutrophils # 23.7 H (1.3-7.7) k/uL Lymphocytes # 0.3 L (1.0-4.8) k/uL Monocytes # 1.1 H (0-1.0) k/uL Potassium (3.5-5.1) mmol/L Chloride 112 H (98-107) mmol/L Carbon Dioxide 19 L (22-30) mmol/L BUN 18 H (7-17) mg/dL Glucose 109 H (74-99) mg/dL POC Glucose (mg/dL) 169 H (75-99) mg/dL Calcium 7.6 L (8.4-10.2) mg/dL CK-MB (CK-2) (0.0-2.4) ng/mL Troponin I (0.000-0.034) ng/mL Urine Appearance (Clear) Urine Protein (Negative) Urine Ketones (Negative) Urine Nitrite (Negative) Ur Leukocyte Esterase (Negative) Urine WBC (0-5) /hpf Urine Bacteria (None) /hpf 01/23/18 01/23/18 01/23/18 Range/Units 12:15 16:56 20:46 WBC (3.8-10.6) k/uL RBC (3.80-5.40) m/uL MCV (80.0-100.0) fL RDW (11.5-15.5) % Neutrophils # (1.3-7.7) k/uL Lymphocytes # (1.0-4.8) k/uL Monocytes # (0-1.0) k/uL Potassium (3.5-5.1) mmol/L Chloride (98-107) mmol/L Carbon Dioxide (22-30) mmol/L BUN (7-17) mg/dL Glucose (74-99) mg/dL POC Glucose (mg/dL) 162 H 182 H (75-99) mg/dL Calcium (8.4-10.2) mg/dL CK-MB (CK-2) (0.0-2.4) ng/mL Troponin I (0.000-0.034) ng/mL Urine Appearance Cloudy H (Clear) Urine Protein Trace H (Negative) Urine Ketones Trace H (Negative) Urine Nitrite Positive H (Negative) Ur Leukocyte Esterase Moderate H (Negative) Urine WBC 13 H (0-5) /hpf Urine Bacteria Many H (None) /hpf Microbiology - Last 24 Hours (Table) 01/23/18 12:15 Urine Culture - Preliminary Urine,Catheterized Laboratory Results WBC 25.4 k/uL (3.8-10.6) H* 01/23/18 06:28 RBC 3.56 m/uL (3.80-5.40) L 01/23/18 06:28 Hgb 11.6 gm/dL (11.4-16.0) 01/23/18 06:28 Hct 36.5 % (34.0-46.0) 01/23/18 06:28 MCV 102.4 fL (80.0-100.0) H 01/23/18 06:28 MCH 32.6 pg (25.0-35.0) 01/23/18 06:28 MCHC 31.9 g/dL (31.0-37.0) 01/23/18 06:28 RDW 17.4 % (11.5-15.5) H 01/23/18 06:28 Plt Count 334 k/uL (150-450) 01/23/18 06:28 Neutrophils % 93 % 01/23/18 06:28 Lymphocytes % 1 % 01/23/18 06:28 Monocytes % 5 % 01/23/18 06:28 Eosinophils % 0 % 01/23/18 06: Basophils % 0 % 01/23/18 06:28 Neutrophils # 23.7 k/uL (1.3-7.7) H 01/23/18 06:28 Lymphocytes # 0.3 k/uL (1.0-4.8) L 01/23/18 06:28 Monocytes # 1.1 k/uL (0-1.0) H 01/23/18 06:28 Eosinophils # 0.0 k/uL (0-0.7) 01/23/18 06:28 Basophils # 0.1 k/uL (0-0.2) 01/23/18 06:28 Hypochromasia Slight 01/23/18 06:28 Anisocytosis Slight 01/23/18 06:28 Macrocytosis Moderate 01/23/18 06:28 Sodium 140 mmol/L (137-145) 01/23/18 06:28 Potassium 3.5 mmol/L (3.5-5.1) 01/23/18 06:28 Chloride 112 mmol/L (98-107) H 01/23/18 06:28 Carbon Dioxide 19 mmol/L (22-30) L 01/23/18 06:28 Anion Gap 9 mmol/L 01/23/18 06:28 BUN 18 mg/dL (7-17) H 01/23/18 06:28 Creatinine 0.56 mg/dL (0.52-1.04) 01/23/18 06:28 Est GFR (CKD-EPI)AfAm >90 (>60 ml/min/1.73 sqM) 01/23/18 06:28 Est GFR (CKD-EPI)NonAf >90 (>60 ml/min/1.73 sqM) 01/23/18 06:28 Glucose 109 mg/dL (74-99) H 01/23/18 06:28 POC Glucose (mg/dL) 182 mg/dL (75-99) H 01/23/18 20:46 POC Glu Color Shop Helper ID Zayra Gayle 01/23/18 20:[address] Glu mg/dL 82 01/22/18 12:27 Hemoglobin A1c 4.5 % (4.0-6.0) 01/22/18 12:27 Plasma Lactic Acid Claude 1.0 mmol/L (0.7-2.0) 01/23/18 09:08 Calcium 7.6 mg/dL (8.4-10.2) L 01/23/18 06:28 Magnesium 1.9 mg/dL (1.6-2.3) 01/23/18 06:28 Total Creatine Kinase 83 U/L (30-135) 01/22/18 12:27 CK-MB (CK-2) 3.3 ng/mL (0.0-2.4) H* 01/22/18 23:52 CK-MB (CK-2) Rel Index 5.5 01/22/18 12:27 Troponin I 0.057 ng/mL (0.000-0.034) H* 01/22/18 23:52 Urine Color Yellow 01/23/18 12:15 Urine Appearance Cloudy (Clear) H 01/23/18 12:15 Urine pH 6.0 (5.0-8.0) 01/23/18 12:15 Ur Specific [place] 1.014 (1.001-1.035) 01/23/18 12:15 Urine Protein Trace (Negative) H 01/23/18 12:15 Urine Glucose (UA) Negative (Negative) 01/23/18 12:15 Urine Ketones Trace (Negative) H 01/23/18 12:15 Urine Blood Negative (Negative) 01/23/18 12:15 Urine Nitrite Positive (Negative) H 01/23/18 12:15 Urine Bilirubin Negative (Negative) 01/23/18 12:15 Urine Urobilinogen 2.0 mg/dL (<2.0) 01/23/18 12:15 Ur Leukocyte Esterase Moderate (Negative) H 01/23/18 12:15 Urine RBC <1 /hpf (0-5) 01/23/18 12:15 Urine WBC 13 /hpf (0-5) H 01/23/18 12:15 Ur Squamous Epith Cells <1 /hpf (0-4) 01/23/18 12:15 Urine Bacteria Many /hpf (None) H 01/23/18 12:15 Hyaline Casts 1 /lpf (0-2) 01/23/18 12:15 Serum Alcohol <10 mg/dL 01/21/18 21:21 Microbiology 01/23/18 12:15 Urine,Catheterized Urine Culture - Preliminary Assessment and Plan (1) Acute encephalopathy Narrative/Plan: 72-year-old female presents to Hospital via EMS after being found obtunded on the floor. Surprisingly she did not have evidence of any rhabdomyolysis has had no acute renal failure. She was mildly dehydrated and is improving. There is not a marked increase of her leukocytosis which is thought to be in the bases of an underlying urinary tract infection that may have been part of her illness superimposed on her multiple medical troubles and alcohol abuse and chronic narcotic use. Blood and urine cultures are in process the patient is being treated with Rocephin which should be adequate based on review of prior microbiological data. Her white blood cell, followed and expected to rapidly decrease in that she is being actively treated for urinary tract infection as well as her underlying diseases. Regarding his been involved and she will be placed in extended care at the time of her discharge. Cultures will determine the need of antibiotic therapy hopefully will be oral at the time of her discharge. Local wound care is offered utilize the sacral foam dressing and pressure ulceration is present there. The foam dressing applied to the elbow and the knee. These do not appear to be grossly infected at this time. Current Visit: Yes Status: Suspected Code(s): G93.40 - ENCEPHALOPATHY, UNSPECIFIED SNOMED Code(s): 49545996 (2) Failure to thrive in adult Current Visit: Yes Status: Acute Code(s): R62.7 - ADULT FAILURE TO THRIVE SNOMED Code(s): 289728420 (3) Fever Current Visit: Yes Status: Acute Code(s): R50.9 - FEVER, UNSPECIFIED SNOMED Code(s): 982675845 (4) Leukocytosis Current Visit: Yes Status: Acute Code(s): D72.829 - ELEVATED WHITE BLOOD CELL COUNT, UNSPECIFIED SNOMED Code(s): 506214002 (5) Urinary tract infection Current Visit: Yes Status: Acute Code(s): N39.0 - URINARY TRACT INFECTION, SITE NOT SPECIFIED SNOMED Code(s): 35229436
[2018-01-24] MEDS: NACL IV SCH ×6 (02:11→15:17)
[2018-01-24] MEDS: [UNRECOGNIZED DRUG - OTHER] IV SCH ×6 (02:11→15:17)
[2018-01-24] MEDS: POTASSIUM CHLORIDE IV SCH ×6 (02:11→15:17)
[2018-01-24] MEDS: DEXTROSE IV SCH ×6 (02:11→15:17)
[2018-01-24] MEDS: ACETAMINOPHEN TAB 325 MG TAB PO PRN ×4 (02:16→21:26)
[2018-01-24 06:05] LABS: Glucose,Whole Blood 164 mg/dL (75-99)
[2018-01-24 07:06] LABS: Anisocytosis Slight; Basophils # (A) 0.1 k/uL (0-0.2); Basophils % (A) 0 %; Eosinophils # (A) 0.2 k/uL (0-0.7); Eosinophils % (A) 1 %; HGB 11.7 gm/dL (11.4-16.0); Hypochromasia Slight; Lymphocytes # (A) 1.2 k/uL (1.0-4.8); Lymphocytes % (A) 4 %; MCH 32.7 pg (25.0-35.0); MCHC 31.5 g/dL (31.0-37.0); MCV 103.8 fL (80.0-100.0); Macrocytosis Moderate; Mean Platelet Volume 7.4; Monocytes # (A) 0.9 k/uL (0-1.0); Monocytes % (A) 2 %; Neutrophils # (A) 32.4 k/uL (1.3-7.7); Neutrophils % (A) 93 %; Platelet Count 304 k/uL (150-450); RBC 3.56 m/uL (3.80-5.40); RDW 17.7 % (11.5-15.5)
[2018-01-24 07:17] LABS: Anion Gap 8 mmol/L; Blood Urea Nitrogen 16 mg/dL (7-17); Calcium 7.7 mg/dL (8.4-10.2); Carbon Dioxide 20 mmol/L (22-30); Chloride 115 mmol/L (98-107); Glucose 127 mg/dL (74-99); Magnesium 1.9 mg/dL (1.6-2.3); Potassium 4.2 mmol/L (3.5-5.1); Sodium 143 mmol/L (137-145)
--- NOTE | 2018-01-24 09:09 | PN ---
PROGRESS NOTE DATE OF SERVICE: 01/23/2018 PRESENTING COMPLAINT: Altered mental status. INTERVAL HISTORY: This patient was seen by me yesterday afternoon. The patient was admitted with acute delirium, felt to be side effect of medications. The patient also developed low-grade fever. I ordered a stat UA and did start the patient on ceftriaxone considering a UTI. The patient is a bit more awake today. Answers some questions, though still lethargic , better than yesterday. Neurology consult was appreciated. REVIEW OF SYSTEMS: Review of systems unable to obtain, the patient is still rather lethargic though much better than yesterday. CURRENT MEDICATIONS: Current medications are reviewed. I started the patient on IV ceftriaxone. PHYSICAL EXAMINATION: On examination, temperature 98.8, pulse 98, respiratory 18, blood pressure 92/50, pulse ox 92% on 2 L. GENERAL APPEARANCE: Lying in bed, lethargic, but more awake than yesterday. Following commands. EYES: Pupils equal. Conjunctivae normal. HENT: External appearance of nose and ears normal. Oral cavity dry. NECK: JVD unable to assess. Mass not palpable. RESPIRATORY: Effort normal. LUNGS: Decreased breath sounds. CARDIOVASCULAR: First and second sounds normal. No edema. ABDOMEN: Soft, nontender. Liver and spleen not palpable. PSYCHIATRY: Patient is able to answer some questions though still lethargic. NEUROLOGICAL: Moving all 4 limbs. DERMATOLOGICAL: Patient has pressure ulcer on the coccyx, right elbow and right knee, present on admission. See Dr. Traylor notes. INVESTIGATIONS: White count 25.4, hemoglobin 11.6. Potassium 3.5. BUN 18, creatinine 0.56. UA positive for leukocyte esterase, nitrite. Chest x-ray reviewed, possible right basilar infiltrate. ASSESSMENT: 1. Possible right basal aspiration pneumonia from altered mental status. 2. Acute urinary tract infection, present on admission. 3. Acute delirium, a side effect from of medications including Neurontin and pain medications with improvement. 4. Chronic bipolar disorder. 5. Chronic pain, being followed by Dr. Rodgers. 6. Mild cognitive impairment. 7. Patient has a legal guardian. 8. Gastroesophageal reflux disease. 9. Primary osteoarthritis with chronic pain. 10.Chronic scoliosis. 11.History of Cedric-en-Y gastric bypass surgery causing patient to have chronic diarrhea. 12.Severe hypokalemia, probably from chronic diarrhea. 13.Metabolic acidosis probably from chronic diarrhea. PLAN: Patient started on IV ceftriaxone. Consultation was made to Infectious Disease. I do expect the patient to turn around. IV fluids are to be given. Care was discussed with the nurse. The patient is slow to respond. Continue with bicarb and the fluids. Follow CBC and electrolytes closely. EMILI / MURRAY: [id number] /
[2018-01-24] MEDS: DULoxetine HCL 60 MG CAPSULE.DR PO SCH ×2 (09:33→21:21)
[2018-01-24] MEDS: QUEtiapine 25 MG TAB PO SCH ×2 (09:33→21:20)
[2018-01-24] MEDS: ENOXAPARIN 40 MG/0.4 ML SYRINGE SQ SCH (09:33)
[2018-01-24] MEDS: cefTRIAXone IN SWFI 1,000 MG/10 ML SYRINGE IVP SCH (09:39)
[2018-01-24] MEDS: KETOTIFEN 0.025% OPHTH DROPS 5 ML BTL BOTH EYES SCH ×2 (09:40→21:21)
[2018-01-24] MEDS: LACTATED RINGERS 1,000 ML IV SCH ×2 (10:23→17:50)
[2018-01-24 12:05] LABS: Glucose,Whole Blood 111 mg/dL (75-99)
--- NOTE | 2018-01-24 13:52 | P.CONS ---
History of Present Illness - Reason for Consult Consult date: 01/24/18 Leukocytosis Requesting physician: Jordon Buckley - Chief Complaint Fall - History of Present Illness This 72-year-old female who was originally brought to seek evaluation at [facility]'s Emergency Department after being found at her home, on the floor, surrounded by her own urine and stool. She has multiple Emergency Room Evaluations this year and previously for mental status evaluations, Alcoholism, and chronic pain, seeking narcotic pain medicine. She has a court appointed enamel shader hugo. On admission, her mental status was apparently severely altered and a neurological work-up was completed. Work-up did not reveal any acute physiological etiology for her delirium (i.e. Stroke). She has a known history of bipolar disorder, ETOH abuse, Narcotic Abuse, and Tobacco Abuse. She follows with psychiatry and Pain management as an outpatient. She is on MS contin for chronic pain as an outpatient. She admits to drinking alcohol every 1-2 days in a bingeful manner. She states she drinks because of her pain and her pain medications often run out and/or do not work. She is aware of the multiple emergency room visits in the past few months regarding this. She admits to a poor diet, especially when drinking, and lack of water hydration. Hematology has been Consulted regarding her elevated white blood cells. Neutrophilia shift. Her MCV is also elevated, which would likely be related to a nutritional deficit secondary to her high risk lifestyle. On assessment, she is appropriate, polite, and calm. She answers questions appropriately and admits to her lack of daily nutrition and high risk lifestyle. She does state she would like to stay alive so she can be present to watch her 6 grandchildren grow-up. Review of Systems A 14 point review of systems assessed and completed and all negative except HPI Past Medical History Past Medical History: GERD/Reflux Additional Past Medical History / Comment(s): pain clinic treatment, back pain, ARTHRITIS,SPINAL STENOSIS,SCOLIOSIS, SPONDYLOSIS, DDD, BULGING DISCS, PINCHED NERVES. HAS HAD LOOSE TO WATERYS TOOLS SINCE GASTRIC SX UNLESS SHE TAKES HER PAIN PILLS THAT BIND HER A BIT. History of Any Multi-Drug Resistant Organisms: None Reported Past Surgical History: Bariatric Surgery, Tubal Ligation Additional Past Surgical History / Comment(s): NAMRATA EN Y GASTRIC BYPASS Past Anesthesia/Blood Transfusion Reactions: No Reported Reaction Additional Past Anesthesia/Blood Transfusion Reaction / Comm: SON HAD REACTION TO ANESTHESIA AND WAS ON A VENT-FAMILY WAS TESTED Past Psychological History: Anxiety, Depression Smoking Status: Light tobacco smoker Past Alcohol Use History: Abuse, Daily Additional Past Alcohol Use History / Comment(s): HAS BEEN smoking on and off since a teenager, currently 2-3 cig per day, admits to drinking alcohol heavily. states she drinks beer and liquor. Past Drug Use History: Prescription Drug Abuse Additional Drug Use History / Comment(s): Legal guardian says the patient smokes cigarettes occasionally. Says she drinks alcohol heavily at times. He was unaware when she last had a drink but said it was most likely the day she was brought in to the hospital. Says she takes prescription pain medication but is unaware if she takes any other drugs. Multiple hospitalizations. Apparently lives independently but has a caregiver. Adult Protective Services have now interjected and will help with her discharge plan. No experience. No animal exposures - Past Family History Son(s) Additional Family Medical History / Comment(s): SON HAD PROBLEM WITH ANESTHESIA WAS ON A VENT-FAMILY WAS TESTED Mother Family Medical History: Myocardial Infarction ([place]) Father Family Medical History: Cancer, Prostate Disorder Additional Family Medical History / Comment(s): prostate cancer Brother(s) Additional Family Medical History / Comment(s): lung Medications and Allergies Home Medications Medication Instructions Recorded Confirmed Type Fluticasone Nasal [place] [Flonase 2 spr EA NOSTRIL DAILY PRN 08/16/17 01/22/18 History Nasal [place]] Ibuprofen [Motrin] 600 mg PO TID PRN 08/16/17 01/22/18 History Loperamide HCl [Imodium A-D] 2 mg PO TID PRN 08/16/17 01/22/18 History Morphine Sulfate ER [Ms Contin] 60 mg PO BID 08/16/17 01/22/18 History Ergocalciferol [Vitamin D2 50,000 unit PO Q7D 10/19/17 01/22/18 History (DRISDOL)] Gabapentin [Neurontin] 400 mg PO QID 12/12/17 01/22/18 History Olopatadine HCl [Pataday] 1 drop BOTH EYES BID 12/12/17 01/22/18 History SILVER sulfADIAZINE Cream 1 applic TOPICAL BID 12/12/17 01/22/18 History [Silvadene 1% Cream] QUEtiapine [SEROquel] 25 mg PO BID #30 tab 12/19/17 01/22/18 Rx Cyanocobalamin (Vitamin B-12) 1,000 mcg PO DAILY 01/22/18 01/22/18 History [Vitamin B-12] DULoxetine HCL [Cymbalta] 60 mg PO BID 01/22/18 01/22/18 History Furosemide [Lasix] 40 mg PO DAILY 01/22/18 01/22/18 History Hydrocodone/Acetaminophen [[place] 1 tab PO BID PRN 01/22/18 01/22/18 History 10-325] Loratadine [Claritin] 10 mg PO DAILY 01/22/18 01/22/18 History Potassium Chloride [Klor-Con 10] 10 meq PO DAILY 01/22/18 01/22/18 History Allergies Allergy/AdvReac Type Severity Reaction Status Date / Time escitalopram oxalate Allergy Rash/Hives Verified 01/21/18 20:44 [From [email or web address]] Physical Exam Vitals: Vital Signs Temp Pulse Resp BP BP Pulse Ox 01/24/18 08:00 98.1 F 67 16 95/65 91 L 01/24/18 04:00 98 F 90 14 123/65 93 L 01/24/18 00:00 98 F 92 14 110/86 95 01/23/18 20:00 97.3 F L 92 14 91/55 91 L 01/23/18 16:00 98.6 F 90 18 89/52 94 L Intake and Output 01/23/18 01/24/18 01/24/18 22:59 06:59 14:59 Intake Total 1040 800 Output Total 1 Balance 1040 799 Intake: IV 800 800 Dextrose 5%-0.9% NaCl 1, 800 800 000 ml @ 100 mls/hr IV . [id number] KESHA with Potassium Chloride 40 meq with Sodium Bicarb (1 Meq/ml) 50 ml Rx#: [id number] Oral 240 Output: Urine/Stool Mix 1 Other: Voiding Method Diaper Diaper Diaper Incontinent Incontinent Incontinent # Bowel Movements 1 Weight 58 kg - Constitutional Appears malnourished, poorly groomed General appearance: cooperative, no acute distress - EENT Eyes: EOMI, PERRLA, poor dentition ENT: hard of hearing, NA/AT, normal oropharynx - Neck Neck is Supple, Trachea is Midline, No JVD Neck: normal ROM - Respiratory Respiratory: bilateral: CTA (No increased Respiratory Effort Noted) - Cardiovascular Rhythm: regular Heart sounds: normal: S1, S2 - Gastrointestinal General gastrointestinal: hepatomegaly, normal bowel sounds, soft, tenderness - Integumentary Mild yellowing versus olive skin coloring Integumentary: pale - Neurologic No Focal Deficits Noted Neurologic: CNII-XII intact - Musculoskeletal Musculoskeletal: gait normal, generalized weakness, strength equal bilaterally - Psychiatric Judgement at time of assessment would be considered appropriate although with her underlying mood and mental health history, her overall mentation and historian lacks credibility. Psychiatric: A&O x's 3, appropriate affect Results CBC & Chem 7: 01/24/18 06:27 01/24/18 06:27 Labs: Abnormal Lab Results - Last 24 Hours (Table) 01/23/18 01/23/18 01/24/18 Range/Units 16:56 20:46 06:03 WBC (3.8-10.6) k/uL RBC (3.80-5.40) m/uL MCV (80.0-100.0) fL RDW (11.5-15.5) % Neutrophils # (1.3-7.7) k/uL Chloride (98-107) mmol/L Carbon Dioxide (22-30) mmol/L Creatinine (0.52-1.04) mg/dL Glucose (74-99) mg/dL POC Glucose (mg/dL) 162 H 182 H 164 H (75-99) mg/dL Calcium (8.4-10.2) mg/dL 01/24/18 01/24/18 01/24/18 Range/Units 06:27 06:27 11:52 WBC 35.0 H* (3.8-10.6) k/uL RBC 3.56 L (3.80-5.40) m/uL MCV 103.8 H (80.0-100.0) fL RDW 17.7 H (11.5-15.5) % Neutrophils # 32.4 H (1.3-7.7) k/uL Chloride 115 H (98-107) mmol/L Carbon Dioxide 20 L (22-30) mmol/L Creatinine 0.51 L (0.52-1.04) mg/dL Glucose 127 H (74-99) mg/dL POC Glucose (mg/dL) 111 H (75-99) mg/dL Calcium 7.7 L (8.4-10.2) mg/dL Microbiology - Last 24 Hours (Table) 01/23/18 12:15 Urine Culture - Preliminary Urine,Catheterized Gram Neg Bacilli 01/23/18 09:15 Blood Culture - Preliminary Blood No Growth after 24 hours Assessment and Plan Plan: Assessment and Recommendations: 1. Leukocytosis with Neutrophilia - Infectious Disease is following. - Likely secondary to active infection. With treatment of UTI, this is expected to trend down quickly - Will continue to monitor CBC with Differential - will ask Path to review smear on tomorrows differential 2. Urinary Tract Infection - - Active Treatment with ABX per ID 3. Acute on Repeated Encephalopathy - Likely secondary to nutritional deficiencies, liver (previous liver function markedly elevated, possibly Rhabdo and Heavy Alcoholism), Active UTI, and psychiatric diagnoses - Repeat Liver Function - I will order nutritional studies and supplement where needed - I will order Folic acid and thiamine dailly at this time (to start after vitamin levels received) 4. Recurrent Hospitalizations for ETOH and Narcotic Dependancy - Psychiatric Consults have been completed in past, unclear if she is continuing to follow per recommendations as an outpatient. She continues on Cymbalta and seroquel which was recommended to be stopped by last evaluation - Defer to psych and Social work - Patient does have a court appointed legal Saman arias (Addictions Recovery Specialist) 5. Protein Calorie Malnutrition - Secondary to failure to thrive as an adult and alcohol and narcotic dependance. - [employer] Weeds And Pest Inspector is following - B12, Folate, Iron Studies ordered Physician Attestation: I have completed the full history and physicl of this patient and agree with above dictation by Charley Sultana NP. Dictated as a scribe.
[2018-01-24 14:08] VITALS: BMI 25.0
[2018-01-24 14:37] LABS: Albumin 1.7 g/dL (3.5-5.0); Bilirubin, Delta 0.5 mg/dL (0.0-0.2); Total Bilirubin 0.5 mg/dL (0.2-1.3); Total Protein 3.9 g/dL (6.3-8.2)
[2018-01-24] MEDS ORDERED: IBUPROFEN 600 MG TAB PO SCH (18:15)
[2018-01-24] MEDS: NAPROXEN 250 MG TAB PO SCH ×2 (18:31→21:20)
[2018-01-24] MEDS: CYANOCOBALAMIN 500 MCG TAB PO SCH (18:45)
[2018-01-24] MEDS: SODIUM BICARBONATE TAB 650 MG TAB PO SCH ×2 (18:45→21:20)
[2018-01-24 18:55] LABS: Iron Saturation 4.76 (12.00-45.00)
[2018-01-24 19:01] LABS: Vitamin D 25 Hydroxy 36.9 ng/mL (30.0-100.0)
[2018-01-24 19:08] LABS: Folate, Serum 6.1 ng/mL
--- NOTE | 2018-01-24 20:33 | PN ---
PROGRESS NOTE DATE OF SERVICE: January 2408 20. PRESENTING COMPLAINT: Altered mental status. INTERVAL HISTORY: The patient admitted with acute delirium/encephalopathy from side effects of medications, felt to be presented with UTI. More awake today. Seen for pain medications. The patient did eat earlier today. REVIEW OF SYSTEMS: Done for constitutional, cardiovascular, GI, pulmonary, musculoskeletal and relevant findings as above. CURRENT MEDICATIONS: Reviewed that include ceftriaxone. PHYSICAL EXAMINATION: VITAL SIGNS: Temperature 97.9, pulse 82, respirations 16, blood pressure 84/49, pulse ox 92% on room air. GENERAL APPEARANCE: Sitting up, more awake, Uncomfortable. EYES: Pupils equal. Conjunctivae normal. HEENT: External appearance of nose and ears normal. Oral cavity dry. NECK: JVD unable to assess. Mass not palpable. RESPIRATORY: Effort normal. LUNGS: Decreased breath sounds. CARDIOVASCULAR: First and second sounds no edema. ABDOMEN: Soft, nontender. Liver and spleen not palpable. PSYCHIATRY: Patient is answering questions appropriately. NEUROLOGICAL: Moving all 4 limbs. DERMATOLOGICAL: Pressure ulcers as before. INVESTIGATIONS: White count 35, hemoglobin 11.7, potassium 4.2, BUN 16, creatinine 0.51. Urine culture growing gram-negative bacilli. ASSESSMENT: 1. Possible right basal aspiration pneumonia from altered mental status. 2. Acute urinary tract infection, present on admission from gram-negative bacilli. 3. Acute delirium, side effect of medications including Neurontin, pain medications with improvement. 4. Chronic bipolar disorder. 5. Chronic pain being followed by Dr. Rodgers. 6. Mild cognitive impairment. 7. Patient has a legal guardian. 8. Gastroesophageal reflux disease. 9. Primary osteoarthritis with chronic pain. 10.Chronic scoliosis. 11.History of Cedric-en-Y gastric bypass surgery causing patient to have chronic diarrhea. 12.Severe hypokalemia from chronic diarrhea, improved. 13.Metabolic acidosis probably from chronic diarrhea. PLAN: Continue patient on IV ceftriaxone. Blood pressure still running on the lower side. We will keep the patient on IV fluids. We will add sodium bicarbonate. We will consult Dr. Rodgers from Pain Management. It is unclear why the white count is running so high, most likely it is from infection. I do expect it to turn around by tomorrow. We will keep the patient off the MS Contin and also put the patient on naproxen. MMODL / IJN: [id number] /
[2018-01-24 21:12] LABS: Glucose,Whole Blood 95 mg/dL (75-99)
[2018-01-25] MEDS: LACTATED RINGERS 1,000 ML IV SCH ×3 (06:13→17:04)
[2018-01-25 07:14] LABS: Glucose,Whole Blood 80 mg/dL (75-99)
[2018-01-25 07:52] LABS: Anisocytosis Slight; HCT 36.6 % (34.0-46.0); HGB 11.4 gm/dL (11.4-16.0); Hypochromasia Slight; MCH 32.1 pg (25.0-35.0); MCHC 31.2 g/dL (31.0-37.0); MCV 102.9 fL (80.0-100.0); Macrocytosis Moderate; Mean Platelet Volume 7.3; Platelet Count 350 k/uL (150-450); RBC 3.56 m/uL (3.80-5.40); RDW 17.8 % (11.5-15.5); WBC 18.9 k/uL (3.8-10.6)
[2018-01-25 08:12] LABS: Anion Gap 8 mmol/L; Blood Urea Nitrogen 18 mg/dL (7-17); Calcium 7.6 mg/dL (8.4-10.2); Carbon Dioxide 19 mmol/L (22-30); Chloride 111 mmol/L (98-107); Glucose 70 mg/dL (74-99); Potassium 3.8 mmol/L (3.5-5.1); Sodium 138 mmol/L (137-145)
--- NOTE | 2018-01-25 08:12 | P.CONS ---
History of Present Illness - Chief Complaint Gait disturbance and confusion - History of Present Illness I had the opportunity to see patient for inpatient rehab consultation with regard to gait disturbance and confusion. She was admitted to [facility] January 22 with the above. Seen by Dr. Quiles who diagnosed encephalopathy. Seen by cardiology. Seen by Dr. Traylor for UTI for the underlying cause of encephalopathy. Also seen by Dr. rhodes chest x-ray demonstrates chronic change. Head CT with chronic atrophy. Stable. PT reports moderate assistance functional ability, transfers and gait 40 feet, hand-held. OT reports minimal assistance for upper dressing and moderate assistance for lower dressing, bathing, toileting and transfers. Functional history: Noted patient has caregivers. Is on chronic pain medication regimen for myself for back pain with MS Contin 60 mg twice a day and [place] 10 twice a day when necessary breakthrough. Patient denies running out of medications are being out of medications at this time. Review of Systems Review of systems: Patient unsure why she is in hospital. ENT: Denies sneezes or discharge. Eyes: Denies discharge or photophobia. Cardiac: Denies chest pain or palpitation. Pulmonary: Denies cough or shortness of breath. Breast: Denies discharge or lumps. Gastrointestinal: Denies nausea, emesis, constipation, diarrhea. Genitourinary: Denies discharge or frequency. Musculoskeletal: Denies muscle or bone aches. Neurologic: Denies confusion but appears to have obvious confusion. Endocrine: Denies shakes or sweats. Oncology: Denies cancers. Dermatologic: Denies rash, itching, pruritus. ALLERGY/immunology: Denies sneezes, rashes. Past Medical History Past Medical History: GERD/Reflux Additional Past Medical History / Comment(s): pain clinic treatment, back pain, ARTHRITIS,SPINAL STENOSIS,SCOLIOSIS, SPONDYLOSIS, DDD, BULGING DISCS, PINCHED NERVES. HAS HAD LOOSE TO WATERYS TOOLS SINCE GASTRIC SX UNLESS SHE TAKES HER PAIN PILLS THAT BIND HER A BIT. History of Any Multi-Drug Resistant Organisms: None Reported Past Surgical History: Bariatric Surgery, Tubal Ligation Additional Past Surgical History / Comment(s): NAMRATA EN Y GASTRIC BYPASS Past Anesthesia/Blood Transfusion Reactions: No Reported Reaction Additional Past Anesthesia/Blood Transfusion Reaction / Comm: SON HAD REACTION TO ANESTHESIA AND WAS ON A VENT-FAMILY WAS TESTED Past Psychological History: Anxiety, Depression Smoking Status: Light tobacco smoker Past Alcohol Use History: Abuse, Daily Past Drug Use History: Prescription Drug Abuse - Past Family History Son(s) Additional Family Medical History / Comment(s): SON HAD PROBLEM WITH ANESTHESIA WAS ON A VENT-FAMILY WAS TESTED Mother Family Medical History: Myocardial Infarction ([place]) Father Family Medical History: Cancer, Prostate Disorder Additional Family Medical History / Comment(s): prostate cancer Brother(s) Additional Family Medical History / Comment(s): lung Medications and Allergies Home Medications Medication Instructions Recorded Confirmed Type Fluticasone Nasal [place] [Flonase 2 spr EA NOSTRIL DAILY PRN 08/16/17 01/22/18 History Nasal [place]] Ibuprofen [Motrin] 600 mg PO TID PRN 08/16/17 01/22/18 History Loperamide HCl [Imodium A-D] 2 mg PO TID PRN 08/16/17 01/22/18 History Morphine Sulfate ER [Ms Contin] 60 mg PO BID 08/16/17 01/22/18 History Ergocalciferol [Vitamin D2 50,000 unit PO Q7D 10/19/17 01/22/18 History (DRISDOL)] Gabapentin [Neurontin] 400 mg PO QID 12/12/17 01/22/18 History Olopatadine HCl [Pataday] 1 drop BOTH EYES BID 12/12/17 01/22/18 History SILVER sulfADIAZINE Cream 1 applic TOPICAL BID 12/12/17 01/22/18 History [Silvadene 1% Cream] QUEtiapine [SEROquel] 25 mg PO BID #30 tab 12/19/17 01/22/18 Rx Cyanocobalamin (Vitamin B-12) 1,000 mcg PO DAILY 01/22/18 01/22/18 History [Vitamin B-12] DULoxetine HCL [Cymbalta] 60 mg PO BID 01/22/18 01/22/18 History Furosemide [Lasix] 40 mg PO DAILY 01/22/18 01/22/18 History Hydrocodone/Acetaminophen [[place] 1 tab PO BID PRN 01/22/18 01/22/18 History 10-325] Loratadine [Claritin] 10 mg PO DAILY 01/22/18 01/22/18 History Potassium Chloride [Klor-Con 10] 10 meq PO DAILY 01/22/18 01/22/18 History Allergies Allergy/AdvReac Type Severity Reaction Status Date / Time escitalopram oxalate Allergy Rash/Hives Verified 01/21/18 20:44 [From [employer]] Physical Exam Vitals: Vital Signs Temp Pulse Pulse Resp BP BP Pulse Ox 01/25/18 05:58 97.6 F 73 16 116/64 92 L 01/24/18 23:00 96.8 F L 62 14 108/68 91 L 01/24/18 18:31 97.8 F 77 16 97/76 93 L 01/24/18 16:00 98 F 84 18 106/63 94 L 01/24/18 12:00 97.9 F 82 16 84/49 92 L Intake and Output 01/24/18 01/25/18 01/25/18 22:59 06:59 14:59 Other: Voiding Method Diaper Incontinent # Voids 1 2 # Bowel Movements 1 1 Skin: Atrophic, intact. General: Medium build and comfortable appearance. Head: Normocephalic, atraumatic. Eyes: Symmetric. Pupils equal round. Ears: Symmetric. Hearing within normal limits. Mouth: Clear. Neck: Supple. Carotid without bruit. Cardiac: Regular rate and rhythm. Lungs: Clear anteriorly and posteriorly. Abdomen: Soft active nontender. Extremities: Normal tone. Neurological: Mental status: Pleasantly confused. Cranial nerves: Symmetric facial tone and trapezius. Motor: Active movement all 4 limbs. Sensation: Intact throughout. DTRs: Symmetric and equal throughout. Mobility: Sits with minimal assistance. Results CBC & Chem 7: 01/25/18 06:54 01/24/18 06:27 Labs: Abnormal Lab Results - Last 24 Hours (Table) 01/24/18 01/24/18 01/24/18 Range/Units 06:27 06:27 11:52 WBC (3.8-10.6) k/uL RBC (3.80-5.40) m/uL MCV (80.0-100.0) fL RDW (11.5-15.5) % POC Glucose (mg/dL) 111 H (75-99) mg/dL Iron 6 L (50-170) ug/dL TIBC 126 L (228-460) ug/dL Iron Saturation 4.76 L (12.00-45.00) Delta Bilirubin 0.5 H (0.0-0.2) mg/dL Total Protein 3.9 L (6.3-8.2) g/dL Albumin 1.7 L (3.5-5.0) g/dL Vitamin B12 1791.0 H (200.0-944.0) pg/mL 01/25/18 Range/Units 06:54 WBC 18.9 H (3.8-10.6) k/uL RBC 3.56 L (3.80-5.40) m/uL MCV 102.9 H (80.0-100.0) fL RDW 17.8 H (11.5-15.5) % POC Glucose (mg/dL) (75-99) mg/dL Iron (50-170) ug/dL TIBC (228-460) ug/dL Iron Saturation (12.00-45.00) Delta Bilirubin (0.0-0.2) mg/dL Total Protein (6.3-8.2) g/dL Albumin (3.5-5.0) g/dL Vitamin B12 (200.0-944.0) pg/mL Microbiology - Last 24 Hours (Table) 01/23/18 12:15 Urine Culture - Preliminary Urine,Catheterized Gram Neg Bacilli 01/23/18 09:15 Blood Culture - Preliminary Blood No Growth after 24 hours Chest x-ray: report reviewed (Chronic change.) CT Scan - head: report reviewed (Chronic atrophy.) Assessment and Plan (1) Acute encephalopathy Current Visit: Yes Status: Suspected Code(s): G93.40 - ENCEPHALOPATHY, UNSPECIFIED SNOMED Code(s): 36645680 Plan: [place]: 1. Gait disturbance. 2. Encephalopathy, appears multifactorial. 3. UTI. 4. Alcohol abuse and withdrawal. 5. Chronic pain syndrome, on chronic pain management for low back pain. Comments and plan: At this time PT and OT are ongoing. And added speech therapy. Note patient has caregivers at home. Discharge plan would be dependent on their ability to continue to safely manage patient.
[2018-01-25] MEDS: KETOTIFEN 0.025% OPHTH DROPS 5 ML BTL BOTH EYES SCH ×2 (08:22→22:15)
[2018-01-25] MEDS: DULoxetine HCL 60 MG CAPSULE.DR PO SCH ×2 (08:22→22:15)
[2018-01-25] MEDS: ENOXAPARIN 40 MG/0.4 ML SYRINGE SQ SCH (08:22)
[2018-01-25] MEDS: CYANOCOBALAMIN 500 MCG TAB PO SCH (08:22)
[2018-01-25] MEDS: QUEtiapine 25 MG TAB PO SCH ×2 (08:23→22:15)
[2018-01-25] MEDS: NAPROXEN 250 MG TAB PO SCH ×3 (08:23→22:16)
[2018-01-25] MEDS: SODIUM BICARBONATE TAB 650 MG TAB PO SCH ×3 (08:24→22:15)
[2018-01-25 08:29] LABS: Band Neutrophils % 3 %; Eosinophils # (M) 0.19 k/uL (0-0.7); Lymphocytes # (M) 1.51 k/uL (1.0-4.8); Monocytes # (M) 0.76 k/uL (0-1.0); Neutrophils % (M) 84 %; Nucleated Red Blood Cells 0 /100 WBC (0-0); Total Cells Counted 100
[2018-01-25 08:30] LABS: Large Platelets Present; Polychromasia Present; Toxic Vacuolation Present
[2018-01-25 08:31] LABS: Poikilocytosis (M) Present
[2018-01-25] MEDS: cefTRIAXone IN SWFI 1,000 MG/10 ML SYRINGE IVP SCH (09:07)
[2018-01-25 12:11] LABS: Glucose,Whole Blood 85 mg/dL (75-99)
--- NOTE | 2018-01-25 16:26 | P.PN ---
Subjective Progress Note Date: 01/25/18 Principal diagnosis: malnutrition This 72-year-old female who was originally brought to seek evaluation at [facility]'s Emergency Department after being found at her home, on the floor, surrounded by her own urine and stool. She has multiple Emergency Room Evaluations this year and previously for mental status evaluations, Alcoholism, and chronic pain, seeking narcotic pain medicine. 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 On admission, her mental status was apparently severely altered and a neurological work-up was completed. Work-up did not reveal any acute physiological etiology for her delirium (i.e. Stroke). She has a known history of bipolar disorder, ETOH abuse, Narcotic Abuse, and Tobacco Abuse. She follows with psychiatry and Pain management as an outpatient. She is on MS contin for chronic pain as an outpatient. She admits to drinking alcohol every 1-2 days in a bingeful manner. She states she drinks because of her pain and her pain medications often run out and/or do not work. She is aware of the multiple emergency room visits in the past few months regarding this. She admits to a poor diet, especially when drinking, and lack of water hydration. Hematology has been Consulted regarding her elevated white blood cells. Neutrophilia shift. Her MCV is also elevated, which would likely be related to a nutritional deficit secondary to her high risk lifestyle. On assessment, she is appropriate, polite, and calm. She answers questions appropriately and admits to her lack of daily nutrition and high risk lifestyle. She does state she would like to stay alive so she can be present to watch her 6 grandchildren grow-up. 01/25/18 - No acute changes, patient iron saturations resulted low, although ferritin stores are wnl, therefore supplements are not advised. Objective - Vital Signs Vital signs: Vital Signs Temp 97.5 F L 01/25/18 15:00 Pulse 91 01/25/18 15:00 Resp 20 01/25/18 15:00 BP 119/78 01/25/18 15:00 Pulse Ox 96 01/25/18 15:00 Intake & Output 01/24/18 01/25/18 01/25/18 18:59 06:59 18:59 Intake Total 180 Output Total 3 Balance 180 -3 Weight 58 kg Intake: Oral 180 Output: Urine 3 Other: Voiding Method Diaper Diaper Diaper Incontinent Incontinent Incontinent # Voids 2 2 6 # Bowel Movements 1 - Constitutional General appearance: Present: cooperative, no acute distress - EENT Eyes: Present: EOMI, PERRLA, poor dentition ENT: Present: NA/AT, normal oropharynx - Neck Details: supple, trachea midline Neck: Present: normal ROM - Respiratory Respiratory: bilateral: CTA (No increased effort) - Cardiovascular Rhythm: regular Heart sounds: normal: S1, S2 - Gastrointestinal General gastrointestinal: Present: normal bowel sounds, soft - Integumentary Integumentary: Present: pale - Neurologic Neurologic: Present: CNII-XII intact - Musculoskeletal Musculoskeletal: Present: generalized weakness, strength equal bilaterally - Psychiatric Psychiatric: Present: A&O x's 3, appropriate affect, intact judgment & insight - Labs CBC & Chem 7: 01/25/18 06:54 01/25/18 06:54 Labs: Abnormal Lab Results - Last 24 Hours (Table) 01/24/18 01/25/18 01/25/18 Range/Units 06:27 06:54 06:54 WBC 18.9 H (3.8-10.6) k/uL RBC 3.56 L (3.80-5.40) m/uL MCV 102.9 H (80.0-100.0) fL RDW 17.8 H (11.5-15.5) % Neutrophils # (Manual) 16.40 H (1.3-7.7) k/uL Chloride 111 H (98-107) mmol/L Carbon Dioxide 19 L (22-30) mmol/L BUN 18 H (7-17) mg/dL Glucose 70 L (74-99) mg/dL Calcium 7.6 L (8.4-10.2) mg/dL Iron 6 L (50-170) ug/dL TIBC 126 L (228-460) ug/dL Iron Saturation 4.76 L (12.00-45.00) Vitamin B12 1791.0 H (200.0-944.0) pg/mL Microbiology - Last 24 Hours (Table) 01/23/18 09:15 Blood Culture - Preliminary Blood No Growth after 48 hours 01/23/18 12:15 Urine Culture - Final Urine,Catheterized Escherichia coli Assessment and Plan Plan: Assessment and Recommendations: 1. Leukocytosis with Neutrophilia - Infectious Disease is following. - Likely secondary to active infection. With treatment of UTI, this is expected to trend down quickly - Will continue to monitor CBC with Differential - will ask Path to review smear on tomorrows differential 2. Urinary Tract Infection - - Active Treatment with ABX per ID 3. Acute on Repeated Encephalopathy - Likely secondary to nutritional deficiencies, liver (previous liver function markedly elevated, possibly Rhabdo and Heavy Alcoholism), Active UTI, and psychiatric diagnoses - Repeat Liver Function - I will order nutritional studies and supplement where needed - I will order Folic acid and thiamine dailly at this time (to start after vitamin levels received) 4. Recurrent Hospitalizations for ETOH and Narcotic Dependancy - Psychiatric Consults have been completed in past, unclear if she is continuing to follow per recommendations as an outpatient. 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 Protein Calorie Malnutrition - Secondary to failure to thrive as an adult and alcohol and narcotic dependance. - Human Resources Benefits Coordinator is following - B12, Folate, Iron Studies ordered and reviewed, no need for iron supplementation at this time with adequate ferritin. Physician Attestation: I have completed the full history and physicl of this patient and agree with above dictation by Charley Sultana NP. Dictated as a scribe.
[2018-01-25 17:41] LABS: Glucose,Whole Blood 79 mg/dL (75-99)
[2018-01-25 21:41] LABS: Glucose,Whole Blood 84 mg/dL (75-99)
--- NOTE | 2018-01-25 21:55 | PN ---
PROGRESS NOTE DATE OF SERVICE: 01/25/2018 PRESENTING COMPLAINT: Tired. INTERVAL HISTORY: This patient presented with acute delirium encephalopathy from side effects of medications precipitated by UTI. Doing better. Wanting her pain medications. Eating better. Looks a bit more relaxed. REVIEW OF SYSTEMS: Done for constitutional, cardiovascular, GI, pulmonary, musculoskeletal; relevant findings above. CURRENT MEDICATIONS: Current medications include ceftriaxone. PHYSICAL EXAMINATION: Temperature 97.6, pulse 73, respiration 16, blood pressure 116/64, pulse ox 92% on room air. GENERAL APPEARANCE: Lying in bed, more awake. EYES: Pupils equal. Conjunctivae normal. HEENT: External appearance of nose and ears normal. Oral cavity normal. NECK: JVD unable to assess. Mass not palpable. RESPIRATORY: Effort normal. LUNGS: Decreased breath sounds. CARDIOVASCULAR: First and second sounds normal. No edema. ABDOMEN: Soft, non-tender. Liver and spleen not palpable. PSYCHIATRY: Awake. Answering questions. INVESTIGATIONS: White count 18.9, bicarb 19. ASSESSMENT: 1. Right basal aspiration pneumonia from altered mental status. 2. Acute urinary tract infection, present on admission, from Escherichia coli. 3. Acute delirium; side effect of medication, including Neurontin, with significant improvement. 4. Chronic bipolar disorder. 5. Chronic pain medication, being followed by Dr. Rodgers. 6. Mild cognitive impairment. 7. Patient has a legal guardian. 8. Gastroesophageal reflux disease. 9. Primary osteoarthritis with chronic pain. 10.Chronic scoliosis. 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 12.Severe hypokalemia from chronic diarrhea, improved. 13.Metabolic acidosis from chronic diarrhea. PLAN: Will resume patient's MS Contin. Will continue to hold off patient's Neurontin and [place]. she will be discharged to an ECF. Looking at going to probably [facility]. MMODL / IJN: [id number] /
[2018-01-25] MEDS: CEPHALEXIN 500 MG CAP PO SCH (22:21)
[2018-01-25] MEDS: MORPHINE SULFATE ER 60 MG TABLET PO SCH (22:37)
[2018-01-26 07:18] LABS: Glucose,Whole Blood 54 mg/dL (75-99)
[2018-01-26 07:26] LABS: Glucose,Whole Blood 77 mg/dL (75-99)
[2018-01-26] MEDS: NAPROXEN 250 MG TAB PO SCH ×2 (07:42→15:15)
[2018-01-26] MEDS: SODIUM BICARBONATE TAB 650 MG TAB PO SCH ×2 (07:42→15:15)
[2018-01-26] MEDS: CYANOCOBALAMIN 500 MCG TAB PO SCH (07:42)
[2018-01-26] MEDS: MORPHINE SULFATE ER 60 MG TABLET PO SCH (07:43)
[2018-01-26] MEDS: CEPHALEXIN 500 MG CAP PO SCH ×2 (07:43→15:16)
[2018-01-26] MEDS: DULoxetine HCL 60 MG CAPSULE.DR PO SCH (07:43)
[2018-01-26] MEDS: QUEtiapine 25 MG TAB PO SCH (07:43)
[2018-01-26] MEDS: KETOTIFEN 0.025% OPHTH DROPS 5 ML BTL BOTH EYES SCH (07:43)
[2018-01-26] MEDS: ENOXAPARIN 40 MG/0.4 ML SYRINGE SQ SCH (07:43)
[2018-01-26 08:10] LABS: Anion Gap 5 mmol/L; Calcium 7.7 mg/dL (8.4-10.2); Carbon Dioxide 20 mmol/L (22-30); Chloride 112 mmol/L (98-107); Glucose 56 mg/dL (74-99); Sodium 137 mmol/L (137-145)
[2018-01-26 08:15] LABS: Blood Urea Nitrogen 15 mg/dL (7-17); Potassium 4.6 mmol/L (3.5-5.1)
[2018-01-26 11:53] LABS: Glucose,Whole Blood 79 mg/dL (75-99)
[2018-01-26] MEDS ORDERED: FOLIC ACID 1 MG TAB PO SCH (12:00)
[2018-01-26] MEDS ORDERED: THIAMINE 100 MG TAB PO SCH (12:00)
--- NOTE | 2018-01-26 12:38 | DS ---
DISCHARGE SUMMARY DATE OF ADMISSION: 01/22/18. DATE OF DISCHARGE: 01/26/18. FINAL DIAGNOSES: 1. Right basal aspiration pneumonia from altered mental status, could be chemical pneumonitis. 2. Acute urinary tract infection, present on admission from E coli. 3. Acute delirium, side effect of medications including pain medications, now resolved. 4. Chronic bipolar disorder. 5. Chronic pain being followed by Dr. Rodgers. 6. Mild cognitive impairment. 7. Patient has a legal guardian. 8. Gastroesophageal reflux disease. 9. Primary osteoarthritis with chronic pain. 10.Chronic scoliosis. 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 12.Severe hypokalemia, probably from chronic diarrhea, improved. 13.Metabolic acidosis from chronic diarrhea, improved. 14.Sacral decubitus ulcer, stage II, present on admission. CONSULTATION: Dr. Traylor. Consultation was also done with Dr. Rodgers. HOSPITAL COURSE: This patient presented with altered mental status, felt to have side effect of medications. All patient's pain medications were discontinued and patient did come around. The patient's Neurontin and [place] were not resumed. The patient is just doing well on the MS Contin. Pain is well controlled. Also treated for infection. Patient probably had aspiration pneumonitis form of pneumonia and also UTI. Cultures did grow E coli. Doing much better, tolerating a diet, up and about. Had a bowel movement. On examination, answering questions appropriately. Lungs are clear. HOME GO MEDICATIONS: 1. Flonase 2 sprays each nostril daily p.r.n. 2. Motrin 600 mg p.o. t.i.d. p.r.n. 3. Vitamin D2 85334 units p.o. q.7 days. 4. Pataday 1 drop to both eyes b.i.d. 5. Silvadene 1% cream topical b.i.d. 6. Vitamin B12 1000 mcg p.o. daily. 7. Cymbalta 60 mg p.o. b.i.d. 8. Keflex 250 mg q.6 28 capsules. 9. MS Contin ER 60 mg b.i.d. to be continued. 10.Seroquel 25 mg p.o. b.i.d. to be continued. 11.Discontinued medications include Neurontin, [place], Claritin, Lasix, potassium. DISPOSITION: [facility]. Follow with Dr. Morel at [facility], follow with Dr. Varela after DC from [facility]. Follow up with Dr. Rodgers in 3 days. Optifoam dressing to coccyx to be changed every 3 days and p.r.n. Discussion and discharge planning more than 35 minutes. Note: The patient has a legal guardian. MMABEBAL / JESUS [place]BERTON: [id number] /
[2018-01-26 15:08] VITALS: BP 76/50; PULSE 99; RESP 20; TEMP 97
== END 2018-01-26 15:42 | DRG 91 ==
LOC: EC 20:23 → 5MS5E 01-22 00:21 → 6SEL 01-22 13:01 → OBSVTOIN 01-23 08:15 → 4MS4W 01-24 17:52
PROVIDERS: ADMIT Hospitalist; ATTEND Hospitalist
DX: G92 Toxic encephalopathy (principal); J69.0 Pneumonitis due to inhalation of food and vomit; E87.2 Acidosis; N39.0 Urinary tract infection, site not specified; E46 Unspecified protein-calorie malnutrition; F10.221 Alcohol dependence with intoxication delirium; F10.239 Alcohol dependence with withdrawal, unspecified; G89.4 Chronic pain syndrome; T40.605A Adverse effect of unspecified narcotics, initial encounter; K21.9 Gastro-esophageal reflux disease without esophagitis; F41.9 Anxiety disorder, unspecified; F31.9 Bipolar disorder, unspecified; F17.210 Nicotine dependence, cigarettes, uncomplicated; L89.152 Pressure ulcer of sacral region, stage 2; B96.20 Unspecified Escherichia coli [E. coli] as the cause of diseases classified elsewhere; M19.90 Unspecified osteoarthritis, unspecified site; E86.0 Dehydration; M19.91 Primary osteoarthritis, unspecified site; R62.7 Adult failure to thrive; E87.6 Hypokalemia; R19.7 Diarrhea, unspecified; G31.84 Mild cognitive impairment of uncertain or unknown etiology; R26.9 Unspecified abnormalities of gait and mobility; M41.9 Scoliosis, unspecified; M54.5 Low back pain; R77.8 Other specified abnormalities of plasma proteins; W19.XXXA Unspecified fall, initial encounter; T42.6X5A Adverse effect of other antiepileptic and sedative-hypnotic drugs, initial encounter; Z98.84 Bariatric surgery status; Z80.49 Family history of malignant neoplasm of other genital organs; Z79.891 Long term (current) use of opiate analgesic; Z79.51 Long term (current) use of inhaled steroids; Z79.899 Other long term (current) drug therapy; Z88.8 Allergy status to other drugs, medicaments and biological substances; Z98.51 Tubal ligation status; Z82.49 Family history of ischemic heart disease and other diseases of the circulatory system
CPT/HCPCS: 36415; 70450; 71045; 80048; 80076; 80320; 81001; 82075; 82306; 82550; 82553; 82607; 82728; 82746; 83036; 83540; 83550; 83605; 83735; 83921; 84132; 84484; 85025; 87040; 87077; 87086; 87186; 93005; 95819; 96360; 96361; 99284

== ENCOUNTER 2018-08-18 09:31 | Emergency (ER) | payer MEDICARE, BC ==
[2018-08-18 09:36] VITALS: BP 124/67; PULSE 83; RESP 16; TEMP 97.9
[2018-08-18] MEDS ORDERED: HYDROcodone/APAP 10-325MG 1 EACH TAB PO ONE (09:46)
[2018-08-18] MEDS ORDERED: MORPHINE SULFATE 4 MG/ML SYRINGE IM STA (09:46)
--- NOTE | 2018-08-18 09:49 | ED ---
Back Pain HPI - General Chief Complaint: Back Pain/Injury Stated Complaint: back pain Time Seen by Provider: 08/18/18 09:43 Source: patient, RN notes reviewed Limitations: no limitations - History of Present Illness Initial Comments: This 32-year-old female presents emergency Department with chief complaint of medication refill. Patient states that she takes [place], morphine daily for chronic pain. Patient states that her guardian left town on Sunday and by the time they called for refill it was too late. Patient states her guardian will be back tomorrow and she can fill her pain meds. Patient states that she fills him once a month from Dr. Phillips. Patient states that she has been out since Sunday and today cannot tolerate the pain. She denies any new injuries. Denies any bowel bladder incontinence or retention. Denies any other complaints. - Related Data Home Medications Medication Instructions Recorded Confirmed Fluticasone Nasal [place] [Flonase 2 spr EA NOSTRIL DAILY PRN 08/16/17 01/22/18 Nasal [place]] Ibuprofen [Motrin] 600 mg PO TID PRN 08/16/17 01/22/18 Ergocalciferol [Vitamin D2 50,000 unit PO Q7D 10/19/17 01/22/18 (DRISDOL)] Olopatadine HCl [Pataday] 1 drop BOTH EYES BID 12/12/17 01/22/18 SILVER sulfADIAZINE Cream 1 applic TOPICAL BID 12/12/17 01/22/18 [Silvadene 1% Cream] Cyanocobalamin (Vitamin B-12) 1,000 mcg PO DAILY 01/22/18 01/22/18 [Vitamin B-12] DULoxetine HCL [Cymbalta] 60 mg PO BID 01/22/18 01/22/18 Previous Rx's Medication Instructions Recorded Cephalexin [Keflex] 250 mg PO Q6HR #28 cap 01/25/18 Morphine Sulfate ER [Ms Contin] 60 mg PO BID #5 tablet 01/26/18 QUEtiapine [SEROquel] 25 mg PO BID #6 tab 01/26/18 Allergies Allergy/AdvReac Type Severity Reaction Status Date / Time escitalopram oxalate Allergy Rash/Hives Verified 08/18/18 09:36 [From Whiapro] Review of Systems ROS Statement: Those systems with pertinent positive or pertinent negative responses have been documented in the HPI. ROS Other: All systems not noted in ROS Statement are negative. Past Medical History Past Medical History: GERD/Reflux Additional Past Medical History / Comment(s): pain clinic treatment, back pain, ARTHRITIS,SPINAL STENOSIS,SCOLIOSIS, SPONDYLOSIS, DDD, BULGING DISCS, PINCHED NERVES. HAS HAD LOOSE TO WATERYS TOOLS SINCE GASTRIC SX UNLESS SHE TAKES HER PAIN PILLS THAT BIND HER A BIT. History of Any Multi-Drug Resistant Organisms: None Reported Past Surgical History: Bariatric Surgery, Tubal Ligation Additional Past Surgical History / Comment(s): NAMRATA EN Y GASTRIC BYPASS Past Anesthesia/Blood Transfusion Reactions: No Reported Reaction Additional Past Anesthesia/Blood Transfusion Reaction / Comment(s): SON HAD REACTION TO ANESTHESIA AND WAS ON A VENT-FAMILY WAS TESTED Past Psychological History: Anxiety, Depression Smoking Status: Light tobacco smoker Past Alcohol Use History: Abuse, Daily Past Drug Use History: Prescription Drug Abuse - Past Family History Son(s) Additional Family Medical History / Comment(s): SON HAD PROBLEM WITH ANESTHESIA WAS ON A VENT-FAMILY WAS TESTED Mother Family Medical History: Myocardial Infarction ([place]) Father Family Medical History: Cancer, Prostate Disorder Additional Family Medical History / Comment(s): prostate cancer Brother(s) Additional Family Medical History / Comment(s): lung General Exam Limitations: no limitations General appearance: alert, in no apparent distress Head exam: Present: atraumatic, normocephalic, normal inspection Neck exam: Present: normal inspection, full ROM. Absent: tenderness, meningismus, lymphadenopathy Respiratory exam: Present: normal lung sounds bilaterally. Absent: respiratory distress, wheezes, rales, rhonchi, stridor Cardiovascular Exam: Present: regular rate, normal rhythm, normal heart sounds. Absent: systolic murmur, diastolic murmur, rubs, gallop, clicks GI/Abdominal exam: Present: soft, normal bowel sounds. Absent: distended, tenderness, guarding, rebound, rigid Extremities exam: Present: full ROM, tenderness Neurological exam: Present: alert, oriented X3, CN II-XII intact Course Vital Signs 08/18/18 09:34 Temperature 97.9 F Pulse Rate 83 Respiratory 16 Rate Blood Pressure 124/67 O2 Sat by Pulse 97 Oximetry Medical Decision Making - Medical Decision Making 72-year-old female presented for chronic pain. Patient does fill [place], morphine sulfa ER 60 mg once a month has been regular does not have multiple providers on maps. Patient will be given IM morphine now, [place] tablet. I did offer her a shot of morphine versus oral morphine. Patient will be discharged she will follow-up tomorrow for medication refill and return for any worsening symptoms. Disposition Clinical Impression: Chronic pain Disposition: HOME SELF-CARE Condition: Stable Instructions: Chronic Back Pain (ED) Additional Instructions: Please return to the Emergency Department if symptoms worsen or any other concerns. Is patient prescribed a controlled substance at d/c from ED?: No Referrals: Khang Lay MD [Primary Care Provider] - 1-2 days Time of Disposition: 09:49
== END 2018-08-18 10:18 | disposition home or self-care (01) ==
LOC: EC 09:31
DX: G89.29 Other chronic pain (principal); M54.9 Dorsalgia, unspecified; F32.9 Major depressive disorder, single episode, unspecified; F41.9 Anxiety disorder, unspecified; F17.200 Nicotine dependence, unspecified, uncomplicated; Z88.8 Allergy status to other drugs, medicaments and biological substances; Z79.899 Other long term (current) drug therapy
CPT/HCPCS: 99283; 96372; J2270

== ENCOUNTER 2019-01-21 12:01 | Emergency (ER) | payer MEDICARE, BC ==
[2019-01-21 12:21] VITALS: BP 126/66; PULSE 72; RESP 19; TEMP 98.1
[2019-01-21] MEDS ORDERED: HYDROmorphone 1 MG/ML 1 ML SYRINGE IM STA (12:34)
[2019-01-21] MEDS ORDERED: KETOROLAC 60 MG/2 ML VIAL IM STA (12:34)
--- NOTE | 2019-01-21 12:38 | ED ---
General Adult HPI - General Chief complaint: Back Pain/Injury Stated complaint: withdrawals Time Seen by Provider: 01/21/19 12:10 Source: patient, EMS, RN notes reviewed Mode of arrival: EMS Limitations: no limitations - History of Present Illness Initial comments: This is a 73-year-old female who presents emergency Department asking for pain medicines. Patient states she had her last dose of morphine on Sunday and states her pain doctor kicked her out of his practice and her family doctor won't prescribe her any pain medicine. Patient is already on a long-acting morphine as well as [place]. Patient states she's had no new symptoms at all she's had no new trauma or injury. Patient states she just states that her medications at home are not working as well as the morphine was. Patient denies any new weakness or numbness. Patient denies any new pain. Patient denies any abdominal pain patient was chest pain difficulty breathing or shortness of breath - Related Data Home Medications Medication Instructions Recorded Confirmed Ibuprofen [Motrin] 600 mg PO TID PRN 08/16/17 01/21/19 Cyanocobalamin (Vitamin B-12) 1,000 mcg PO DAILY 01/22/18 01/21/19 [Vitamin B-12] DULoxetine HCL [Cymbalta] 60 mg PO BID 01/22/18 01/21/19 Buprenorphine HCl [Belbuca] 150 mcg BUCCAL Q12H 01/21/19 01/21/19 Calcium Carbonate/Vitamin D3 1 tab PO BID 01/21/19 01/21/19 [Calcium 500-Vit D3 200 Tablet] Furosemide [Lasix] 20 mg PO DAILY 01/21/19 01/21/19 Gabapentin [Neurontin] 400 mg PO TID 01/21/19 01/21/19 HYDROcodone/APAP 10-325MG [[place] 1 tab PO BID 01/21/19 01/21/19 10-325] Loratadine [Claritin] 10 mg PO DAILY 01/21/19 01/21/19 Potassium Chloride [Klor-Con 10] 10 meq PO DAILY 01/21/19 01/21/19 busPIRone HCl [Buspar] 10 mg PO BID 01/21/19 01/21/19 Allergies Allergy/AdvReac Type Severity Reaction Status Date / Time escitalopram oxalate Allergy Rash/Hives Verified 06/11/19 12:23 [From Lexapro] Review of Systems ROS Statement: Those systems with pertinent positive or pertinent negative responses have been documented in the HPI. ROS Other: All systems not noted in ROS Statement are negative. Past Medical History Past Medical History: GERD/Reflux Additional Past Medical History / Comment(s): pain clinic treatment, back pain, ARTHRITIS,SPINAL STENOSIS,SCOLIOSIS, SPONDYLOSIS, DDD, BULGING DISCS, PINCHED NERVES. HAS HAD LOOSE TO WATERYS TOOLS SINCE GASTRIC SX UNLESS SHE TAKES HER PAIN PILLS THAT BIND HER A BIT. History of Any Multi-Drug Resistant Organisms: None Reported Past Surgical History: Bariatric Surgery, Tubal Ligation Additional Past Surgical History / Comment(s): NAMRATA EN Y GASTRIC BYPASS Past Anesthesia/Blood Transfusion Reactions: No Reported Reaction Additional Past Anesthesia/Blood Transfusion Reaction / Comment(s): SON HAD REACTION TO ANESTHESIA AND WAS ON A VENT-FAMILY WAS TESTED Past Psychological History: Anxiety, Depression Smoking Status: Light tobacco smoker Past Alcohol Use History: Abuse, Daily Past Drug Use History: Prescription Drug Abuse - Past Family History Son(s) Additional Family Medical History / Comment(s): SON HAD PROBLEM WITH ANESTHESIA WAS ON A VENT-FAMILY WAS TESTED Mother Family Medical History: Myocardial Infarction ([place]) Father Family Medical History: Cancer, Prostate Disorder Additional Family Medical History / Comment(s): prostate cancer Brother(s) Additional Family Medical History / Comment(s): lung General Exam - General Exam Comments Initial Comments: GENERAL: Patient is well-developed and well-nourished. Patient is nontoxic and well- hydrated and is in mild distress. ENT: Neck is soft and supple. No significant lymphadenopathy is noted. Oropharynx is clear. Moist mucous membranes. Neck has full range of motion without eliciting any pain. EYES: The sclera were anicteric and conjunctiva were pink and moist. Extraocular movements were intact and pupils were equal round and reactive to light. Eyelids were unremarkable. PULMONARY: Unlabored respirations. Good breath sounds bilaterally. No audible rales rhonchi or wheezing was noted. CARDIOVASCULAR: There is a regular rate and rhythm without any murmurs gallops or rubs. ABDOMEN: Soft and nontender with normal bowel sounds. SKIN: Skin is clear with no lesions or rashes and otherwise unremarkable. NEUROLOGIC: Patient is alert and oriented x3. Cranial nerves II through XII are grossly intact. Motor and sensory are also intact. Normal speech, volume and content. Symmetrical smile. Straight leg test is normal bilaterally MUSCULOSKELETAL: Normal extremities with adequate strength and full range of motion. No lower extremity swelling or edema. No calf tenderness. LYMPHATICS: No significant lymphadenopathy is noted PSYCHIATRIC: Normal psychiatric evaluation. Limitations: no limitations Course Vital Signs 01/21/19 12:11 Temperature 98.1 F Pulse Rate 72 Respiratory 19 Rate Blood Pressure 126/66 O2 Sat by Pulse 99 Oximetry Medical Decision Making - Medical Decision Making patient states she was kicked out of the practice of the pain doctor because she drank some wine. Disposition Clinical Impression: Chronic back pain Disposition: HOME SELF-CARE Condition: Good Instructions (If sedation given, give patient instructions): Chronic Back Pain (DC) Referrals: Mehdi Varela DO [Primary Care Provider] - 1-2 days Time of Disposition: 12:38
== END 2019-01-21 13:19 | disposition home or self-care (01) ==
LOC: EC 12:01
DX: G89.29 Other chronic pain (principal); M54.9 Dorsalgia, unspecified; M19.90 Unspecified osteoarthritis, unspecified site; F41.9 Anxiety disorder, unspecified; F32.9 Major depressive disorder, single episode, unspecified; F17.200 Nicotine dependence, unspecified, uncomplicated; Z79.891 Long term (current) use of opiate analgesic; Z79.899 Other long term (current) drug therapy; Z88.8 Allergy status to other drugs, medicaments and biological substances
CPT/HCPCS: 99283; 96372 ×2; J1885; J1170

== ENCOUNTER 2019-01-22 16:38 | Emergency (ER) | payer MEDICARE, BC ==
[2019-01-22 16:46] VITALS: RESP 18; TEMP 98
[2019-01-22] MEDS ORDERED: HYDROmorphone 1 MG/ML 1 ML SYRINGE IM STA (17:44)
[2019-01-22] MEDS ORDERED: ACET/COD 300 MG/30 MG STARTER PACK 6 TAB BTL PO STA (17:44)
--- NOTE | 2019-01-22 17:45 | ED ---
Recheck HPI - General Chief Complaint: Back Pain/Injury Stated Complaint: BACK PAIN Time Seen by Provider: 01/22/19 17:37 Source: patient, EMS, RN notes reviewed, old records reviewed Mode of arrival: EMS Limitations: no limitations - History of Present Illness Initial Comments: This is a 73-year-old female to the ER for evaluation today. She is presenting for evaluation regards to medication refill. Patient was seen in emergency room yesterday for same complaint. Patient has history of chronic pain medicine taken off morphine secondary to using alcohol. Patient not currently taking any significant pain medications per herself. Patient denies recent alcohol abuse. Denies homicidal or suicidal thoughts. Patient states she is very shaky and restless and anxious. MD Complaint: medication refill request -: days(s) Returns Today for: request for prescription, persistent/worsening pain related to initial visit Symptoms Since Prior Visit: worsening pain Context: ran out of medication Associated Symptoms: chills, nausea, abdominal pain - Related Data Home Medications Medication Instructions Recorded Confirmed Ibuprofen [Motrin] 600 mg PO TID PRN 08/16/17 01/22/19 Cyanocobalamin (Vitamin B-12) 1,000 mcg PO DAILY 01/22/18 01/22/19 [Vitamin B-12] DULoxetine HCL [Cymbalta] 60 mg PO BID 01/22/18 01/22/19 Buprenorphine HCl [Belbuca] 150 mcg BUCCAL Q12H 01/21/19 01/22/19 Calcium Carbonate/Vitamin D3 1 tab PO BID 01/21/19 01/22/19 [Calcium 500-Vit D3 200 Tablet] Furosemide [Lasix] 20 mg PO DAILY 01/21/19 01/22/19 Gabapentin [Neurontin] 400 mg PO TID 01/21/19 01/22/19 HYDROcodone/APAP 10-325MG [[place] 1 tab PO BID 01/21/19 01/22/19 10-325] Loratadine [Claritin] 10 mg PO DAILY 01/21/19 01/22/19 Potassium Chloride [Klor-Con 10] 10 meq PO DAILY 01/21/19 01/22/19 busPIRone HCl [Buspar] 10 mg PO BID 01/21/19 01/22/19 Methocarbamol [Robaxin] 750 mg PO Q12HR 01/22/19 01/22/19 Allergies Allergy/AdvReac Type Severity Reaction Status Date / Time escitalopram oxalate Allergy Rash/Hives Verified 01/22/19 17:34 [From Lexapro] Review of Systems ROS Statement: Those systems with pertinent positive or pertinent negative responses have been documented in the HPI. ROS Other: All systems not noted in ROS Statement are negative. Past Medical History Past Medical History: GERD/Reflux Additional Past Medical History / Comment(s): pain clinic treatment, back pain, ARTHRITIS,SPINAL STENOSIS,SCOLIOSIS, SPONDYLOSIS, DDD, BULGING DISCS, PINCHED NERVES. HAS HAD LOOSE TO WATERYS TOOLS SINCE GASTRIC SX UNLESS SHE TAKES HER PAIN PILLS THAT BIND HER A BIT. History of Any Multi-Drug Resistant Organisms: None Reported Past Surgical History: Bariatric Surgery, Tubal Ligation Additional Past Surgical History / Comment(s): NAMRATA EN Y GASTRIC BYPASS Past Anesthesia/Blood Transfusion Reactions: No Reported Reaction Additional Past Anesthesia/Blood Transfusion Reaction / Comment(s): SON HAD REACTION TO ANESTHESIA AND WAS ON A VENT-FAMILY WAS TESTED Past Psychological History: Anxiety, Depression Smoking Status: Light tobacco smoker Past Alcohol Use History: Abuse, Daily Past Drug Use History: Prescription Drug Abuse - Past Family History Son(s) Additional Family Medical History / Comment(s): SON HAD PROBLEM WITH ANESTHESIA WAS ON A VENT-FAMILY WAS TESTED Mother Family Medical History: Myocardial Infarction ([place]) Father Family Medical History: Cancer, Prostate Disorder Additional Family Medical History / Comment(s): prostate cancer Brother(s) Additional Family Medical History / Comment(s): lung General Exam Limitations: no limitations General appearance: alert, in no apparent distress, anxious Head exam: Present: atraumatic, normocephalic, normal inspection Eye exam: Present: normal appearance, PERRL, EOMI. Absent: scleral icterus, conjunctival injection, periorbital swelling ENT exam: Present: normal exam, mucous membranes moist Neck exam: Present: normal inspection. Absent: tenderness, meningismus, lymphadenopathy Respiratory exam: Present: normal lung sounds bilaterally. Absent: respiratory distress, wheezes, rales, rhonchi, stridor Cardiovascular Exam: Present: regular rate, normal rhythm, normal heart sounds. Absent: systolic murmur, diastolic murmur, rubs, gallop, clicks GI/Abdominal exam: Present: soft, normal bowel sounds. Absent: distended, tenderness, guarding, rebound, rigid Extremities exam: Present: normal inspection, full ROM, normal capillary refill. Absent: tenderness, pedal edema, joint swelling, calf tenderness Back exam: Present: normal inspection Neurological exam: Present: alert, oriented X3, CN II-XII intact Psychiatric exam: Present: normal affect, normal mood Skin exam: Present: warm, dry, intact, normal color. Absent: rash Course Vital Signs 01/22/19 16:42 Temperature 98.0 F Pulse Rate 83 Respiratory 18 Rate Blood Pressure 137/84 O2 Sat by Pulse 98 Oximetry - Reevaluation(s) Reevaluation #1: 01/22/19 18:01 medical record and prior ER visit are reviewed Reevaluation #2: 01/22/19 18:01 Symptoms improved Medical Decision Making - Medical Decision Making 73 female the ER for evaluation patient has a for prescription refill, told that she'll not be given prescription refilled her at this time, we'll attempt Catapres patch and an outpatient basis. Patient is no significant distress from withdrawal vital signs are normal. Patient can be discharged home Disposition Clinical Impression: Intractable pain, Chronic back pain, Medication refill Disposition: HOME SELF-CARE Condition: Fair Instructions (If sedation given, give patient instructions): Polysubstance Abuse (ED), Narcotic Use Disorder (ED) Is patient prescribed a controlled substance at d/c from ED?: No Referrals: Mehdi Varela DO [Primary Care Provider] - 1-2 days
[2019-01-22] MEDS ORDERED: cloNIDine 0.2 MG/24HR PATCH TRANSDERM SCH (18:00)
[2019-01-22 18:14] VITALS: BP 131/72; PULSE 80
== END 2019-01-22 18:12 | disposition home or self-care (01) ==
LOC: EC 16:38
DX: G89.29 Other chronic pain (principal); Z76.0 Encounter for issue of repeat prescription; R45.1 Restlessness and agitation; R11.0 Nausea; R10.9 Unspecified abdominal pain; R68.83 Chills (without fever); R25.9 Unspecified abnormal involuntary movements; F32.9 Major depressive disorder, single episode, unspecified; F41.9 Anxiety disorder, unspecified; F17.200 Nicotine dependence, unspecified, uncomplicated; Z88.8 Allergy status to other drugs, medicaments and biological substances; Z79.891 Long term (current) use of opiate analgesic; Z79.899 Other long term (current) drug therapy
CPT/HCPCS: 99284; 96372; J1170

== ENCOUNTER 2019-01-25 10:20 | Emergency (ER) | payer MEDICARE, BC ==
[2019-01-25 10:26] VITALS: BP 125/70; PULSE 80; RESP 18; TEMP 97.7
[2019-01-25] MEDS ORDERED: KETOROLAC 30 MG/ML 1 ML VIAL IM STA (10:41)
[2019-01-25] MEDS ORDERED: MORPHINE SULFATE 4 MG/ML SYRINGE IM STA (10:42)
[2019-01-25] MEDS ORDERED: ACET/COD 300 MG/30 MG STARTER PACK 6 TAB BTL PO STA (10:46)
--- NOTE | 2019-01-25 10:46 | ED ---
Back Pain HPI - General Source: patient, RN notes reviewed, old records reviewed Limitations: no limitations <Eufemia Levine - Last Filed: 01/25/19 10:42> <Angel Galindo - Last Filed: 01/25/19 10:57> - General Chief Complaint: Back Pain/Injury Stated Complaint: Back Pain Time Seen by Provider: 01/25/19 10:28 - History of Present Illness Initial Comments: Patient is a 73-year-old female presents return today for evaluation with complaints of back pain. She reports is chronic in nature. No falls or trauma to create this pain worse. She was recently on oral morphine, but states that her previous pain management doctor took her off of this after she was found drinking alcohol. Patient states that she's had no associated fevers or chills and denies any saddle anesthesia. She arrives via EMS. Patient states that she is here for pain management until she can see her new pain management doctor. She has an emergency appointment on Sunday. Patient denies any recent fever, chills, shortness of breath, chest pain, abdominal pain, nausea vomiting, numbness or tingling, dysuria or hematuria, constipation or diarrhea, headaches or visual changes, or any other current symptoms (Eufemia Levine) - Related Data Home Medications Medication Instructions Recorded Confirmed Ibuprofen [Motrin] 600 mg PO TID PRN 08/16/17 01/25/19 Cyanocobalamin (Vitamin B-12) 1,000 mcg PO DAILY 01/22/18 01/25/19 [Vitamin B-12] DULoxetine HCL [Cymbalta] 60 mg PO BID 01/22/18 01/25/19 Buprenorphine HCl [Belbuca] 150 mcg BUCCAL Q12H 01/21/19 01/25/19 Calcium Carbonate/Vitamin D3 1 tab PO BID 01/21/19 01/25/19 [Calcium 500-Vit D3 200 Tablet] Furosemide [Lasix] 20 mg PO DAILY 01/21/19 01/25/19 HYDROcodone/APAP 10-325MG [[place] 1 tab PO BID PRN 01/21/19 01/25/19 10-325] Loratadine [Claritin] 10 mg PO DAILY 01/21/19 01/25/19 Potassium Chloride [Klor-Con 10] 10 meq PO DAILY 01/21/19 01/25/19 busPIRone HCl [Buspar] 10 mg PO BID 01/21/19 01/25/19 Methocarbamol [Robaxin] 750 mg PO Q12HR 01/22/19 01/25/19 Acetaminophen-Codeine 300-30mg 2 tab PO Q6H PRN 01/25/19 01/25/19 [Tylenol w/codeine #3] Gabapentin [Neurontin] 300 mg PO TID 01/25/19 01/25/19 Allergies Allergy/AdvReac Type Severity Reaction Status Date / Time escitalopram oxalate Allergy Rash/Hives Verified 01/25/19 10:53 [From Lexapro] Review of Systems ROS Other: All systems not noted in ROS Statement are negative. <Eufemia Levine - Last Filed: 01/25/19 10:42> ROS Other: All systems not noted in ROS Statement are negative. <Angel Galindo - Last Filed: 01/25/19 10:57> ROS Statement: Those systems with pertinent positive or pertinent negative responses have been documented in the HPI. Past Medical History Past Medical History: GERD/Reflux Additional Past Medical History / Comment(s): pain clinic treatment, back pain, ARTHRITIS,SPINAL STENOSIS,SCOLIOSIS, SPONDYLOSIS, DDD, BULGING DISCS, PINCHED NERVES. HAS HAD LOOSE TO WATERYS TOOLS SINCE GASTRIC SX UNLESS SHE TAKES HER PAIN PILLS THAT BIND HER A BIT. History of Any Multi-Drug Resistant Organisms: None Reported Past Surgical History: Bariatric Surgery, Tubal Ligation Additional Past Surgical History / Comment(s): NAMRATA EN Y GASTRIC BYPASS Past Anesthesia/Blood Transfusion Reactions: No Reported Reaction Additional Past Anesthesia/Blood Transfusion Reaction / Comment(s): SON HAD REACTION TO ANESTHESIA AND WAS ON A VENT-FAMILY WAS TESTED Past Psychological History: Anxiety, Depression Smoking Status: Light tobacco smoker Past Alcohol Use History: Abuse, Daily Past Drug Use History: Prescription Drug Abuse - Past Family History Son(s) Additional Family Medical History / Comment(s): SON HAD PROBLEM WITH ANESTHESIA WAS ON A VENT-FAMILY WAS TESTED Mother Family Medical History: Myocardial Infarction ([place]) Father Family Medical History: Cancer, Prostate Disorder Additional Family Medical History / Comment(s): prostate cancer Brother(s) Additional Family Medical History / Comment(s): lung <Eufemia Levine - Last Filed: 01/25/19 10:42> General Exam Limitations: no limitations <JuliannaEufemia - Last Filed: 01/25/19 10:42> - General Exam Comments Initial Comments: 73-year-old female. Alert and oriented 3. No distress. General: Well appearing, well nourished, in no distress. Oriented x 3, normal mood and affect . Ambulating without difficulty. Skin: Good turgor, no rash, unusual bruising or prominent lesions Hair: Normal texture and distribution. HEENT: Head: Normocephalic, atraumatic, no visible or palpable masses, depressions, or scaring. Eyes: Visual acuity intact, conjunctiva clear, sclera non-icteric, EOM intact, PERRL. Ears: EACs clear, TMs translucent & cone of light visualized. hearing intact. Nose: No external lesions, mucosa non-inflamed, septum and turbinates normal Mouth: Mucous membranes moist, no mucosal lesions. Teeth/Gums: No obvious caries or periodontal disease. No gingival inflammation or significant resorption. Pharynx: Mucosa non-inflamed, no tonsillar hypertrophy or exudate Neck: Supple, without lesions, bruits, or adenopathy, thyroid non-enlarged and non-tender Heart: No cardiomegaly or thrills; regular rate and rhythm, no murmur or gallop Lungs: Clear to auscultation and percussion Abdomen: Bowel sounds normal, no tenderness, organomegaly, masses, or hernia Back: Lumbar spinal tenderness. Rectal: Normal sphincter tone, no hemorrhoids or masses palpable Extremities: No amputations or deformities, cyanosis, edema or varicosities, peripheral pulses intact Musculoskeletal: Normal gait and station. No misalignment, asymmetry, crepitation, defects, tenderness, masses, effusions, decreased range of motion, instability, atrophy or abnormal strength or tone in the head, neck, spine, ribs, pelvis or extremities. Neurologic: CN 2-12 normal. Sensation to pain, touch, and proprioception normal. DTRs normal in upper and lower extremities. No pathologic reflexes. Psychiatric: Oriented X3, intact recent and remote memory, judgment and insight, normal mood and affect. (Eufemia Levine) Course <Angel Galindo - Last Filed: 01/25/19 10:57> Vital Signs 01/25/19 10:22 Temperature 97.7 F Pulse Rate 80 Respiratory 18 Rate Blood Pressure 125/70 O2 Sat by Pulse 99 Oximetry - Reevaluation(s) Reevaluation #1: 01/25/19 10:57 PA supervision: I proceeded [id number] evaluation the patient. Patient does present with complaints of exacerbation of her chronic pain patient will receive medication here she is instructed to keep her follow-up at the pain management clinic in 3 days as planned. I do agree with the assessment and plan (Angel Galindo) Medical Decision Making <Eufemia Levine - Last Filed: 01/25/19 10:42> - Medical Decision Making 73-year-old female presents is from stay for evaluation for chronic back pain. Patient denies any saddle anesthesias. Denies any recent falls or trauma. Patient is here for pain management. Maps report was ran. She had a prescription for both leukocytes sibling with films, hydrocodone acetaminophen and gabapentin all on January 17 in January 20. Patient reports that since stopped managing her pain. She does see her pain management doctor on Sunday. Patient was seen in emergency department 2 days ago and was given a Catapres patch for withdrawal symptoms. She reports she is continuing to wear that at this time. This time vital signs are stable. Is not been any acute withdrawal. Patient will be given IM Toradol and morphine. Was reevaluated and pain improved. 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 (Eufemia Levine) Disposition Is patient prescribed a controlled substance at d/c from ED?: No Time of Disposition: 10:45 <Eufemia Levine - Last Filed: 01/25/19 10:42> <Angel Galindo - Last Filed: 01/25/19 10:57> Clinical Impression: Chronic back pain Disposition: HOME SELF-CARE Condition: Stable Instructions (If sedation given, give patient instructions): Acute Low Back Pain (ED) Additional Instructions: Patient advised to follow-up with primary care doctor. Return to emergency department if any alarming signs or symptoms occur. Referrals: Mehdi Varela DO [Primary Care Provider] - 1-2 days
== END 2019-01-25 11:45 | disposition home or self-care (01) ==
LOC: EC 10:20
DX: M54.9 Dorsalgia, unspecified (principal); G89.29 Other chronic pain; F32.9 Major depressive disorder, single episode, unspecified; M41.9 Scoliosis, unspecified; F41.9 Anxiety disorder, unspecified; K21.9 Gastro-esophageal reflux disease without esophagitis; F17.200 Nicotine dependence, unspecified, uncomplicated; Z79.891 Long term (current) use of opiate analgesic; Z79.899 Other long term (current) drug therapy; Z88.8 Allergy status to other drugs, medicaments and biological substances; Z87.39 Personal history of other diseases of the musculoskeletal system and connective tissue; Z98.51 Tubal ligation status; Z98.84 Bariatric surgery status
CPT/HCPCS: 99284; 96372 ×2; J2270; J1885

== ENCOUNTER 2019-01-26 17:43 | Emergency (ER) | payer MEDICARE, BC ==
[2019-01-26 18:12] VITALS: BP 145/76; PULSE 75; RESP 18; TEMP 97.9
[2019-01-26] MEDS ORDERED: MORPHINE SULFATE 4 MG/ML SYRINGE IM STA (18:16)
--- NOTE | 2019-01-26 18:22 | ED ---
Back Pain [facility] - General Chief Complaint: Back Pain/Injury Stated Complaint: Back pain Time Seen by Provider: 01/26/19 17:57 Source: patient, EMS Limitations: no limitations - History of Present Illness Initial Comments: Patient is a 73-year-old female with chronic back pain and opiate dependency who presents with chief complaint of acute on chronic lower back pain. The patient has had several visits this week for the same. The patient was recently discontinued on her oral morphine administered to see a new pain management doctor. She has an appointment on Sunday. Patient denies any new injury, she denies any bowel or bladder dysfunction, inability to walk, or saddle anesthesia. Patient is here for pain management. - Related Data Home Medications Medication Instructions Recorded Confirmed Ibuprofen [Motrin] 600 mg PO TID PRN 08/16/17 01/25/19 Cyanocobalamin (Vitamin B-12) 1,000 mcg PO DAILY 01/22/18 01/25/19 [Vitamin B-12] DULoxetine HCL [Cymbalta] 60 mg PO BID 01/22/18 01/25/19 Buprenorphine HCl [Belbuca] 150 mcg BUCCAL Q12H 01/21/19 01/25/19 Calcium Carbonate/Vitamin D3 1 tab PO BID 01/21/19 01/25/19 [Calcium 500-Vit D3 200 Tablet] Furosemide [Lasix] 20 mg PO DAILY 01/21/19 01/25/19 HYDROcodone/APAP 10-325MG [[place] 1 tab PO BID PRN 01/21/19 01/25/19 10-325] Loratadine [Claritin] 10 mg PO DAILY 01/21/19 01/25/19 Potassium Chloride [Klor-Con 10] 10 meq PO DAILY 01/21/19 01/25/19 busPIRone HCl [Buspar] 10 mg PO BID 01/21/19 01/25/19 Methocarbamol [Robaxin] 750 mg PO Q12HR 01/22/19 01/25/19 Acetaminophen-Codeine 300-30mg 2 tab PO Q6H PRN 01/25/19 01/25/19 [Tylenol w/codeine #3] Gabapentin [Neurontin] 300 mg PO TID 01/25/19 01/25/19 Allergies Allergy/AdvReac Type Severity Reaction Status Date / Time escitalopram oxalate Allergy Rash/Hives Verified 01/26/19 17:56 [From [email or web address]] Review of Systems ROS Statement: Those systems with pertinent positive or pertinent negative responses have been documented in the HPI. ROS Other: All systems not noted in ROS Statement are negative. Musculoskeletal: Reports: back pain Past Medical History Past Medical History: GERD/Reflux Additional Past Medical History / Comment(s): pain clinic treatment, back pain, ARTHRITIS,SPINAL STENOSIS,SCOLIOSIS, SPONDYLOSIS, DDD, BULGING DISCS, PINCHED NERVES. HAS HAD LOOSE TO WATERYS TOOLS SINCE GASTRIC SX UNLESS SHE TAKES HER PAIN PILLS THAT BIND HER A BIT. History of Any Multi-Drug Resistant Organisms: None Reported Past Surgical History: Bariatric Surgery, Tubal Ligation Additional Past Surgical History / Comment(s): NAMRATA EN Y GASTRIC BYPASS Past Anesthesia/Blood Transfusion Reactions: No Reported Reaction Additional Past Anesthesia/Blood Transfusion Reaction / Comment(s): SON HAD REACTION TO ANESTHESIA AND WAS ON A VENT-FAMILY WAS TESTED Past Psychological History: Anxiety, Depression Smoking Status: Light tobacco smoker Past Alcohol Use History: Abuse, Daily Past Drug Use History: Prescription Drug Abuse - Past Family History Son(s) Additional Family Medical History / Comment(s): SON HAD PROBLEM WITH ANESTHESIA WAS ON A VENT-FAMILY WAS TESTED Mother Family Medical History: Myocardial Infarction ([place]) Father Family Medical History: Cancer, Prostate Disorder Additional Family Medical History / Comment(s): prostate cancer Brother(s) Additional Family Medical History / Comment(s): lung General Exam Limitations: no limitations General appearance: alert, in no apparent distress Head exam: Present: atraumatic, normocephalic Eye exam: Present: normal appearance ENT exam: Present: normal exam Neck exam: Present: normal inspection Respiratory exam: Present: normal lung sounds bilaterally. Absent: respiratory distress Cardiovascular Exam: Present: regular rate, normal rhythm GI/Abdominal exam: Present: soft. Absent: distended, tenderness Rectal exam: Present: deferred Extremities exam: Present: normal inspection Back exam: Present: normal inspection, tenderness, paraspinal tenderness, other (patient has tenderness to palpation of the lower back. ) Neurological exam: Present: alert, oriented X3, other (ambulatory, no limitations of back ROM. ) Psychiatric exam: Present: normal affect, normal mood Skin exam: Present: warm, dry, intact Course Vital Signs 01/26/19 17:53 Temperature 97.9 F Pulse Rate 75 Respiratory 18 Rate Blood Pressure 145/76 O2 Sat by Pulse 98 Oximetry Medical Decision Making - Medical Decision Making The presents with chief complaint of back pain. On initial evaluation, vitals are stable, patient is no acute distress. She is here for pain management. History of patient was given a dose of morphine in the emergency department and discharged. They'll be given a dose of morphine today instructed to use lidocaine patches and increase her home [place] from twice daily to 3 times daily until she follow up with her pain management doctor on Sunday. Patient agreeable to this care plan, no indication of life threatening etiologies to the patient's pain. Disposition Clinical Impression: Acute exacerbation of chronic low back pain, Opiate dependence, continuous Disposition: HOME SELF-CARE Condition: Good Instructions (If sedation given, give patient instructions): Acute Low Back Pain (ED) Additional Instructions: INCREASE YOUR HOME [place] FROM TWO TIMES DAILY TO THREE TIMES DAILY UNTIL YOU CAN FOLLOW UP WITH YOUR PAIN MANAGEMENT DOCTOR ON SUNDAY Is patient prescribed a controlled substance at d/c from ED?: No Referrals: Mehdi Varela DO [Primary Care Provider] - 1-2 days
[2019-01-26] MEDS ORDERED: LIDOCAINE 5% PATCH TOPICAL SCH (18:30)
== END 2019-01-26 19:15 | disposition home or self-care (01) ==
LOC: EC 17:43
DX: G89.29 Other chronic pain (principal); M54.5 Low back pain; F11.20 Opioid dependence, uncomplicated; F41.9 Anxiety disorder, unspecified; F32.9 Major depressive disorder, single episode, unspecified; F17.200 Nicotine dependence, unspecified, uncomplicated; Z79.899 Other long term (current) drug therapy; Z88.8 Allergy status to other drugs, medicaments and biological substances; Z98.84 Bariatric surgery status
CPT/HCPCS: 99283; 96372; J2270

== ENCOUNTER 2019-01-27 15:28 | Emergency (ER) | payer MEDICARE, BC ==
[2019-01-27 15:42] VITALS: BP 140/61; PULSE 101; RESP 18; TEMP 98
[2019-01-27] MEDS ORDERED: ORPHENADRINE 30 MG/ML 2 ML VIAL IM STA (16:20)
[2019-01-27] MEDS ORDERED: KETOROLAC 60 MG/2 ML VIAL IM STA (16:20)
[2019-01-27] MEDS ORDERED: LIDOCAINE 5% PATCH TOPICAL STA (16:23)
--- NOTE | 2019-01-27 16:27 | ED ---
Back Pain HPI - General Chief Complaint: Back Pain/Injury Stated Complaint: spine pain Time Seen by Provider: 01/27/19 15:49 Source: patient, RN notes reviewed, old records reviewed Limitations: no limitations - History of Present Illness Initial Comments: Patient is a 73-year-old female wanted to emergency department for chronic pain. She's been to emergency room multiple times this week for "a shot of morphine". Patient states that she was discharged off her morphine and seeing a new pain management doctor. 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 Patient is not currently on [place], gabapentin Robaxin. Patient was seen in the emergency department yesterday and received IM pain medication. As well as a lidocaine patch. - Related Data Home Medications Medication Instructions Recorded Confirmed Ibuprofen [Motrin] 600 mg PO TID PRN 08/16/17 01/26/19 Cyanocobalamin (Vitamin B-12) 1,000 mcg PO DAILY 01/22/18 01/26/19 [Vitamin B-12] DULoxetine HCL [Cymbalta] 60 mg PO BID 01/22/18 01/26/19 Buprenorphine HCl [Belbuca] 150 mcg BUCCAL Q12H 01/21/19 01/26/19 Calcium Carbonate/Vitamin D3 1 tab PO BID 01/21/19 01/26/19 [Calcium 500-Vit D3 200 Tablet] Furosemide [Lasix] 20 mg PO DAILY 01/21/19 01/26/19 HYDROcodone/APAP 10-325MG [[place] 1 tab PO BID PRN 01/21/19 01/26/19 10-325] Loratadine [Claritin] 10 mg PO DAILY 01/21/19 01/26/19 Potassium Chloride [Klor-Con 10] 10 meq PO DAILY 01/21/19 01/26/19 busPIRone HCl [Buspar] 10 mg PO BID 01/21/19 01/26/19 Methocarbamol [Robaxin] 750 mg PO Q12HR 01/22/19 01/26/19 Acetaminophen-Codeine 300-30mg 2 tab PO Q6H PRN 01/25/19 01/26/19 [Tylenol w/codeine #3] Gabapentin [Neurontin] 300 mg PO TID 01/25/19 01/26/19 Allergies Allergy/AdvReac Type Severity Reaction Status Date / Time escitalopram oxalate Allergy Rash/Hives Verified 01/27/19 15:42 [From Lexapro] Review of Systems ROS Statement: Those systems with pertinent positive or pertinent negative responses have been documented in the HPI. ROS Other: All systems not noted in ROS Statement are negative. Past Medical History Past Medical History: GERD/Reflux Additional Past Medical History / Comment(s): pain clinic treatment, back pain, ARTHRITIS,SPINAL STENOSIS,SCOLIOSIS, SPONDYLOSIS, DDD, BULGING DISCS, PINCHED NERVES. HAS HAD LOOSE TO WATERYS TOOLS SINCE GASTRIC SX UNLESS SHE TAKES HER PAIN PILLS THAT BIND HER A BIT. 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 Absent: scleral icterus, conjunctival injection, periorbital swelling ENT exam: Present: normal exam, mucous membranes moist Neck exam: Present: normal inspection. Absent: tenderness, meningismus, lymphadenopathy Respiratory exam: Present: normal lung sounds bilaterally. Absent: respiratory distress, wheezes, rales, rhonchi, stridor Cardiovascular Exam: Present: regular rate, normal rhythm, normal heart sounds. Absent: systolic murmur, diastolic murmur, rubs, gallop, clicks GI/Abdominal exam: Present: soft, normal bowel sounds. Absent: distended, te nderness, guarding, rebound, rigid Extremities exam: Present: normal inspection, full ROM, normal capillary refill. Absent: tenderness, pedal edema, joint swelling, calf tenderness Back exam: Present: normal inspection Neurological exam: Present: alert, oriented X3, CN II-XII intact Psychiatric exam: Present: normal affect, normal mood Skin exam: Present: warm, dry, intact, normal color. 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 Return to emergency department if any alarming signs or symptoms occur. Is patient prescribed a controlled substance at d/c from ED?: No Referrals: Mehdi Varela DO [Primary Care Provider] - 1-2 days Time of Disposition: 16:39
== END 2019-01-27 17:11 | disposition home or self-care (01) ==
LOC: EC 15:28
DX: G89.29 Other chronic pain (principal); M54.9 Dorsalgia, unspecified; M19.90 Unspecified osteoarthritis, unspecified site; F41.9 Anxiety disorder, unspecified; F32.9 Major depressive disorder, single episode, unspecified; F17.200 Nicotine dependence, unspecified, uncomplicated; Z79.891 Long term (current) use of opiate analgesic; Z79.899 Other long term (current) drug therapy; Z88.8 Allergy status to other drugs, medicaments and biological substances
CPT/HCPCS: 99284; 96372 ×2; J2360; J1885

== ENCOUNTER → 2019-03-14 | Outpatient (CLI) | payer MEDICARE, BC ==
--- NOTE | 2019-03-14 12:50 | XR ---
EXAMINATION TYPE: XR chest 2V DATE OF EXAM: 03/14/2019 COMPARISON: 01/23/2018 HISTORY: Shortness of breath for 6 weeks TECHNIQUE: Frontal and lateral views of the chest are obtained. FINDINGS: Platelike atelectasis is seen at the left lung base. Old fracture deformity of anterior le ft lower ribs are seen. There is diffuse osseous demineralization. No focal consolidation, pleural ef fusion or pneumothorax. Cardiomediastinal silhouette is within normal limits size. There is slight pu lmonary hyperinflation that could relate to underlying COPD or degree of inspiration. Correlation wit h pulmonary function tests should be considered. IMPRESSION: Minimal platelike left basilar subsegmental atelectasis otherwise no acute cardiopulmona ry process.
== END | disposition home or self-care (01) ==
LOC: RADXRMAIN 11:45
PROVIDERS: ATTEND Family Medicine
DX: J98.11 Atelectasis (principal)
CPT/HCPCS: 71046

== ENCOUNTER 2019-11-06 11:00 | Emergency (ER) | payer MEDICARE, BC ==
[2019-11-06 11:06] VITALS: TEMP 97.5
--- NOTE | 2019-11-06 11:34 | ED ---
Upper Extremity HPI - General Chief Complaint: Extremity Injury, Upper Stated Complaint: fall, wrist injury Time Seen by Provider: 11/06/19 11:18 Source: patient Mode of arrival: ambulatory Limitations: no limitations - History of Present Illness Initial Comments: Patient is a 73-year-old female presenting to emergency Department with complaints of her right wrist injury. Patient states yesterday she went to grab a railing to go up a stair when she slipped and she fell backwards onto her right hand. Patient reports significant pain in her right wrist. She denies hitting her head or any other injuries from this fall. She denies being on blood thinners. She denies any previous injuries or surgeries to her right wrist or hand. She has no other complaints at this time. Patient did take ibuprofen prior to arrival. Upon arrival to ER, her vitals are stable. - Related Data Home Medications Medication Instructions Recorded Confirmed Ibuprofen [Motrin] 600 mg PO TID PRN 08/16/17 01/26/19 Cyanocobalamin (Vitamin B-12) 1,000 mcg PO DAILY 01/22/18 01/26/19 [Vitamin B-12] DULoxetine HCL [Cymbalta] 60 mg PO BID 01/22/18 01/26/19 Buprenorphine HCl [Belbuca] 150 mcg BUCCAL Q12H 01/21/19 01/26/19 Calcium Carbonate/Vitamin D3 1 tab PO BID 01/21/19 01/26/19 [Calcium 500-Vit D3 200 Tablet] Furosemide [Lasix] 20 mg PO DAILY 01/21/19 01/26/19 HYDROcodone/APAP 10-325MG [[place] 1 tab PO BID PRN 01/21/19 01/26/19 10-325] Loratadine [Claritin] 10 mg PO DAILY 01/21/19 01/26/19 Potassium Chloride [Klor-Con 10] 10 meq PO DAILY 01/21/19 01/26/19 busPIRone HCl [Buspar] 10 mg PO BID 01/21/19 01/26/19 Methocarbamol [Robaxin] 750 mg PO Q12HR 01/22/19 01/26/19 Acetaminophen-Codeine 300-30mg 2 tab PO Q6H PRN 01/25/19 01/26/19 [Tylenol w/codeine #3] Gabapentin [Neurontin] 300 mg PO TID 01/25/19 01/26/19 Allergies Allergy/AdvReac Type Severity Reaction Status Date / Time escitalopram oxalate Allergy Rash/Hives Verified 01/27/19 15:42 [From Lexapro] Review of Systems ROS Statement: Those systems with pertinent positive or pertinent negative responses have been documented in the HPI. ROS Other: All systems not noted in ROS Statement are negative. Past Medical History Past Medical History: GERD/Reflux Additional Past Medical History / Comment(s): pain clinic treatment, back pain, ARTHRITIS,SPINAL STENOSIS,SCOLIOSIS, SPONDYLOSIS, DDD, BULGING DISCS, PINCHED NERVES. HAS HAD LOOSE TO WATERYS TOOLS SINCE GASTRIC SX UNLESS SHE TAKES HER PAIN PILLS THAT BIND HER A BIT. History of Any Multi-Drug Resistant Organisms: None Reported Past Surgical History: Bariatric Surgery, Tubal Ligation Additional Past Surgical History / Comment(s): NAMRATA EN Y GASTRIC BYPASS Past Anesthesia/Blood Transfusion Reactions: No Reported Reaction Additional Past Anesthesia/Blood Transfusion Reaction / Comment(s): SON HAD REACTION TO ANESTHESIA AND WAS ON A VENT-FAMILY WAS TESTED Past Psychological History: Anxiety, Depression Smoking Status: Light tobacco smoker Past Alcohol Use History: Abuse, Daily Past Drug Use History: Prescription Drug Abuse - Past Family History Son(s) Additional Family Medical History / Comment(s): SON HAD PROBLEM WITH ANESTHESIA WAS ON A VENT-FAMILY WAS TESTED Mother Family Medical History: Myocardial Infarction ([place]) Father Family Medical History: Cancer, Prostate Disorder Additional Family Medical History / Comment(s): prostate cancer Brother(s) Additional Family Medical History / Comment(s): lung General Exam - General Exam Comments Initial Comments: GENERAL: Well-appearing, well-nourished and in no acute distress. HEAD: Atraumatic, normocephalic. EYES: Pupils equal round and reactive to light, extraocular movements intact, sclera anicteric, conjunctiva are normal. ENT: Moist mucous membranes. NECK: Normal range of motion, supple without lymphadenopathy or JVD. LUNGS: Breath sounds clear to auscultation bilaterally and equal. No wheezes rales or rhonchi. HEART: Regular rate and rhythm without murmurs, rubs or gallops. ABDOMEN: Soft, nontender, normoactive bowel sounds. No guarding, no rebound. No masses appreciated. : Deferred EXTREMITIES: Patient has a significant deformity of the right wrist, mild to moderate swelling surrounding the right wrist as well as bruising. There are no open fractures. She is neurovascular intact. No pain of the right upper forearm, right elbow, right shoulder. NEUROLOGICAL: Cranial nerves II through XII grossly intact. Normal speech, normal gait. PSYCH: Normal mood, normal affect. SKIN: Warm, Dry, normal turgor, no rashes or lesions noted. Limitations: no limitations Course Vital Signs 11/06/19 11/06/19 11:04 12:28 Temperature 97.5 F L Pulse Rate 108 H 92 Respiratory 19 16 Rate Blood Pressure 170/95 160/85 O2 Sat by Pulse 92 L 95 Oximetry Procedures - Orthopedic Splinting/Casting Injury #1 Side: right Upper Extremity Injury Location: wrist Upper Extremity Immobilizer: sling/shoulder immobilizer, sugar tong splint, synthetic pre-padded splint Medical Decision Making - Medical Decision Making Patient is 73-year-old female presenting with right wrist injury after falling on it yesterday. X-rays revealed an impacted transverse fracture of the distal radius with a longitudinal component and the proximal radial diaphysis, ulnar styloid avulsion. Case is discussed with Dr. Solo. Dr. Solo assisted in fracture reduction and splinting. Patient was placed in a sugar tong splint as well as sling. She will follow up with orthopedics today. Patient may continue with Tylenol or Motrin for discomfort as well as keeping wrist elevated. She may do icing to the area as well. Patient is in agreement with this plan of care. Return parameters were discussed with the patient she verbalized understanding. Disposition Clinical Impression: Closed fracture of right distal radius and ulna, Fall Disposition: HOME SELF-CARE Condition: Stable Instructions (If sedation given, give patient instructions): Wrist Fracture in Adults (ED) Additional Instructions: Please return to the Emergency Department if symptoms worsen or any other concerns. Continue with Tylenol or ibuprofen for pain relief. Keep arm elevated. Keep splint in place. Follow up with orthopedics as discussed. Is patient prescribed a controlled substance at d/c from ED?: No Referrals: Sammie Molina SN [Student Nurse] - 1-2 days Leo Ibarra MD [STAFF PHYSICIAN] - 1-2 days
--- NOTE | 2019-11-06 11:52 | XR ---
EXAMINATION TYPE: XR wrist complete RT DATE OF EXAM: 11/06/2019 COMPARISON: None HISTORY: Fall, pain, deformity TECHNIQUE: 4 view right wrist FINDINGS: There is an impacted fracture of the distal metaphyseal radius. Longitudinal fracture lines extend within the proximal radius. Some intra-articular extension of the ulnar aspect of the radius may be present. Nondisplaced ulnar styloid fracture is present. The lateral projection dorsal angulat ion is noted of the distal radius. Soft tissue swelling is over the fracture site. There is some prominence of the scapholunate space. Some disassociation is not excluded. There is fra gmentation of the trapezium, this appears to be old. No additional fractures are evident. IMPRESSION: 1. Impacted transverse fracture distal metaphyseal radius with a longitudinal component in the proxi mal radial diaphysis. 2. Ulnar styloid avulsion appears nondisplaced. 3. Prominent soft tissue swelling right wrist
[2019-11-06 12:30] VITALS: BP 160/85; PULSE 92; RESP 16
--- NOTE | 2019-11-07 01:57 | CDI ---
Dear Misa Cochran PA-C: Please do addendum fracture reduction procedure notes as per MDM - "Dr. Solo assisted in fracture reduction and splinting." Thank you, Ame Isaac, Supply Room Clerk. If you have any questions, please contact [employer] at [phone]. [facility]
== END 2019-11-06 12:30 | disposition home or self-care (01) ==
LOC: EC 11:00
DX: S52.591A Other fractures of lower end of right radius, initial encounter for closed fracture (principal); S52.611B Displaced fracture of right ulna styloid process, initial encounter for open fracture type I or II; M19.90 Unspecified osteoarthritis, unspecified site; F32.9 Major depressive disorder, single episode, unspecified; F41.9 Anxiety disorder, unspecified; F17.200 Nicotine dependence, unspecified, uncomplicated; Z88.8 Allergy status to other drugs, medicaments and biological substances; Z79.891 Long term (current) use of opiate analgesic; Z86.69 Personal history of other diseases of the nervous system and sense organs; W01.0XXA Fall on same level from slipping, tripping and stumbling without subsequent striking against object, initial encounter; Y93.89 Activity, other specified
CPT/HCPCS: 25605; 99283

== ENCOUNTER → 2020-01-20 | Outpatient (CLI) | payer MEDICARE, BC | END | disposition home or self-care (01) | LOC: LABWHC1 09:42 | PROVIDERS: ATTEND Family Medicine | DX: Z01.812 Encounter for preprocedural laboratory examination (principal) ==

== ENCOUNTER 2020-01-21 16:12 | Emergency (ER) | payer MEDICARE, BC ==
[2020-01-21 18:13] LABS: Appearance,Urine Clear (Clear); Bilirubin,Urine Negative (Negative); Blood,Urine Negative (Negative); Color,Urine Yellow; Glucose,Urine (UA) Negative (Negative); Hyaline Casts,Urine 15 /lpf (0-2); Ketones,Urine Negative (Negative); Leukocyte Esterase,Urine Large (Negative); Mucus,Urine Rare /hpf; Nitrite,Urine Negative (Negative); Protein,Urine Trace (Negative); RBC,Urine 1 /hpf (0-5); Specific Gravity,Urine 1.016 (1.001-1.035); Squamous Epithelial Cell,Urine 5 /hpf (0-4); WBC,Urine 14 /hpf (0-5)
--- NOTE | 2020-01-21 18:16 | XR ---
EXAMINATION TYPE: XR chest 2V DATE OF EXAM: 01/21/2020 COMPARISON: March 14, 2019 HISTORY: Short of breath TECHNIQUE: 2 views FINDINGS: There is some mild linear density left lung base. Heart size is normal. There is no heart f ailure. There are no hilar masses. There are chest leads. There is no definite pleural effusion. Ther e is a mild thoracic dextroscoliosis. IMPRESSION: There is pleural reaction and subsegmental atelectasis left lung base unchanged. Normal h eart. No heart failure.
--- NOTE | 2020-01-21 18:52 | ED ---
Recheck HPI - General Chief Complaint: Recheck/Abnormal Lab/Rx Stated Complaint: High BP Time Seen by Provider: 01/21/20 16:43 Source: patient, family Mode of arrival: wheelchair Limitations: physical limitation - History of Present Illness Initial Comments: Patient is a 74-year-old female, with history of chronic back pain, presenting to the emergency Department with complaints of elevated blood pressure as well as low oxygen. Patient states she went to her normal pain management appointment and when they took her vitals there they were concerned about her blood pressure. Her initial readings were in the 200s, second and third readings were in the 150s. Patient admits to no chest pain. She does have exertional shortness of breath which has been present for the last 6 months. She states she feels like it may be getting slightly worse. She denies being on oxygen at home. She states she is having surgery on Sunday for a pain pump for her chronic back pain. She denies chest pain, palpitations, abdominal pain, nausea, vomiting. She denies being dizzy, headache. She has no further complaints at this time. - Related Data Home Medications Medication Instructions Recorded Confirmed Ibuprofen [Motrin] 600 mg PO TID PRN 08/16/17 01/26/19 Cyanocobalamin (Vitamin B-12) 1,000 mcg PO DAILY 01/22/18 01/26/19 [Vitamin B-12] DULoxetine HCL [Cymbalta] 60 mg PO BID 01/22/18 01/26/19 Buprenorphine HCl [Belbuca] 150 mcg BUCCAL Q12H 01/21/19 01/26/19 Calcium Carbonate/Vitamin D3 1 tab PO BID 01/21/19 01/26/19 [Calcium 500-Vit D3 200 Tablet] Furosemide [Lasix] 20 mg PO DAILY 01/21/19 01/26/19 HYDROcodone/APAP 10-325MG [[place] 1 tab PO BID PRN 01/21/19 01/26/19 10-325] Loratadine [Claritin] 10 mg PO DAILY 01/21/19 01/26/19 Potassium Chloride [Klor-Con 10] 10 meq PO DAILY 01/21/19 01/26/19 busPIRone HCl [Buspar] 10 mg PO BID 01/21/19 01/26/19 Methocarbamol [Robaxin] 750 mg PO Q12HR 01/22/19 01/26/19 Acetaminophen-Codeine 300-30mg 2 tab PO Q6H PRN 01/25/19 01/26/19 [Tylenol w/codeine #3] Gabapentin [Neurontin] 300 mg PO TID 01/25/19 01/26/19 Previous Rx's Medication Instructions Recorded Cephalexin [Keflex] 500 mg PO BID 5 Days #10 cap 01/21/20 Allergies Allergy/AdvReac Type Severity Reaction Status Date / Time escitalopram oxalate Allergy Rash/Hives Verified 01/21/20 16:21 [From Lexapro] Review of Systems ROS Statement: Those systems with pertinent positive or pertinent negative responses have been documented in the HPI. ROS Other: All systems not noted in ROS Statement are negative. Past Medical History Past Medical History: GERD/Reflux Additional Past Medical History / Comment(s): pain clinic treatment, back pain, ARTHRITIS,SPINAL STENOSIS,SCOLIOSIS, SPONDYLOSIS, DDD, BULGING DISCS, PINCHED NERVES. HAS HAD LOOSE TO WATERYS TOOLS SINCE GASTRIC SX UNLESS SHE TAKES HER PAIN PILLS THAT BIND HER A BIT. History of Any Multi-Drug Resistant Organisms: None Reported Past Surgical History: Bariatric Surgery, Tubal Ligation Additional Past Surgical History / Comment(s): NAMRATA EN Y GASTRIC BYPASS Past Anesthesia/Blood Transfusion Reactions: No Reported Reaction Additional Past Anesthesia/Blood Transfusion Reaction / Comment(s): SON HAD REACTION TO ANESTHESIA AND WAS ON A VENT-FAMILY WAS TESTED Past Psychological History: Anxiety, Depression Smoking Status: Current every day smoker Past Alcohol Use History: Abuse, Daily Past Drug Use History: Prescription Drug Abuse - Past Family History Son(s) Additional Family Medical History / Comment(s): SON HAD PROBLEM WITH ANESTHESIA WAS ON A VENT-FAMILY WAS TESTED Mother Family Medical History: Myocardial Infarction ([place]) Father Family Medical History: Cancer, Prostate Disorder Additional Family Medical History / Comment(s): prostate cancer Brother(s) Additional Family Medical History / Comment(s): lung General Exam - General Exam Comments Initial Comments: GENERAL: Well-appearing, well-nourished and in no acute distress. HEAD: Atraumatic, normocephalic. EYES: Pupils equal round and reactive to light, extraocular movements intact, sclera anicteric, conjunctiva are normal. ENT: TMs normal, nares patent, oropharynx clear without exudates. Moist mucous membranes. NECK: Normal range of motion, supple without lymphadenopathy or JVD. LUNGS: Breath sounds clear to auscultation bilaterally and equal. No wheezes rales or rhonchi. HEART: Regular rate and rhythm without murmurs, rubs or gallops. ABDOMEN: Soft, nontender, normoactive bowel sounds. No guarding, no rebound. No masses appreciated. : Deferred EXTREMITIES: Normal range of motion, no pitting or edema. No clubbing or cyanosis. NEUROLOGICAL: Cranial nerves II through XII grossly intact. Normal speech, normal gait. PSYCH: Normal mood, normal affect. SKIN: Warm, Dry, normal turgor, no rashes or lesions noted. Limitations: physical limitation Course Vital Signs 01/21/20 01/21/20 01/21/20 16:19 17:59 20:01 Temperature 98.1 F 98.8 F Pulse Rate 96 94 Respiratory 20 18 19 Rate Blood Pressure 156/92 148/86 O2 Sat by Pulse 94 L 97 Oximetry Medical Decision Making - Medical Decision Making Patient is a 74-year-old female here for elevated blood pressure and low oxygen saturation at the doctor's office today. Patient is having surgery to answer a pain pump in her back on Sunday. She has no further complaints today. She has been taking medications as prescribed. Patient's exam was unremarkable, only complaining his chronic low back pain. EKG shows no signs of acute ischemia. Chest x-ray shows no acute abnormality. Lab work shows no acute findings. Urine does show large amount leukocyte Estrace, 14 wbc's. Patient's blood pressures remained stable in the ER. I discussed with patient that we will start her on Keflex for a minor UTI. She is in agreement with this plan of care. She is stable for discharge at this time. She'll follow-up with her PCP. Discussed with Dr. Tinoco. - Lab Data Result diagrams: 01/21/20 18:45 01/21/20 18:45 Lab Results 01/21/20 01/21/20 01/21/20 Range/Units 17:50 18:45 18:45 WBC 6.3 (3.8-10.6) k/uL RBC 4.69 (3.80-5.40) m/uL Hgb 13.7 (11.4-16.0) gm/dL Hct 45.1 (34.0-46.0) % MCV 96.2 (80.0-100.0) fL MCH 29.2 (25.0-35.0) pg MCHC 30.3 L (31.0-37.0) g/dL RDW 15.2 (11.5-15.5) % Plt Count 363 (150-450) k/uL Neutrophils % 65 % Lymphocytes % 21 % Monocytes % 9 % Eosinophils % 1 % Basophils % 0 % Neutrophils # 4.1 (1.3-7.7) k/uL Lymphocytes # 1.3 (1.0-4.8) k/uL Monocytes # 0.6 (0-1.0) k/uL Eosinophils # 0.1 (0-0.7) k/uL Basophils # 0.0 (0-0.2) k/uL Hypochromasia Slight Sodium 135 L (137-145) mmol/L Potassium 4.7 (3.5-5.1) mmol/L Chloride 106 (98-107) mmol/L Carbon Dioxide 22 (22-30) mmol/L Anion Gap 7 mmol/L BUN 10 (7-17) mg/dL Creatinine 0.55 (0.52-1.04) mg/dL Est GFR (CKD-EPI)AfAm >90 (>60 ml/min/1.73 sqM) Est GFR (CKD-EPI)NonAf >90 (>60 ml/min/1.73 sqM) Glucose 103 H (74-99) mg/dL Calcium 9.4 (8.4-10.2) mg/dL Total Bilirubin 0.4 (0.2-1.3) mg/dL AST 21 (14-36) U/L ALT 12 (4-34) U/L Alkaline Phosphatase 92 (38-126) U/L Total Protein 6.8 (6.3-8.2) g/dL Albumin 3.7 (3.5-5.0) g/dL Urine Color Yellow Urine Appearance Clear (Clear) Urine pH 6.0 (5.0-8.0) Ur Specific [place] 1.016 (1.001-1.035) Urine Protein Trace H (Negative) Urine Glucose (UA) Negative (Negative) Urine Ketones Negative (Negative) Urine Blood Negative (Negative) Urine Nitrite Negative (Negative) Urine Bilirubin Negative (Negative) Urine Urobilinogen 2.0 (<2.0) mg/dL Ur Leukocyte Esterase Large H (Negative) Urine RBC 1 (0-5) /hpf Urine WBC 14 H (0-5) /hpf Ur Squamous Epith Cells 5 H (0-4) /hpf Hyaline Casts 15 H (0-2) /lpf Urine Mucus Rare H (None) /hpf - EKG Data EKG Comments: Sinus rhythm with premature atrial complexes, nonspecific ST abnormalities, no signs of acute ischemia. Ventricular rate 97, NC interval 122, QTC 449. Disposition Clinical Impression: Hypertension, UTI (urinary tract infection) Disposition: HOME SELF-CARE Condition: Stable Instructions (If sedation given, give patient instructions): Urinary Tract Infection in Women (ED) Additional Instructions: Please return to the Emergency Department if symptoms worsen or any other concerns. Follow-up with PCP. Take antibiotic as prescribed. Prescriptions: Cephalexin [Keflex] 500 mg PO BID 5 Days #10 cap Is patient prescribed a controlled substance at d/c from ED?: No Referrals: Mehdi Varela DO [Primary Care Provider] - 1-2 days
[2020-01-21 19:23] LABS: Basophils % (A) 0 %; Eosinophils # (A) 0.1 k/uL (0-0.7); Eosinophils % (A) 1 %; HCT 45.1 % (34.0-46.0); HGB 13.7 gm/dL (11.4-16.0); Hypochromasia Slight; Lymphocytes # (A) 1.3 k/uL (1.0-4.8); Lymphocytes % (A) 21 %; MCH 29.2 pg (25.0-35.0); MCHC 30.3 g/dL (31.0-37.0); MCV 96.2 fL (80.0-100.0); Monocytes # (A) 0.6 k/uL (0-1.0); Monocytes % (A) 9 %; Neutrophils # (A) 4.1 k/uL (1.3-7.7); Neutrophils % (A) 65 %; Platelet Count 363 k/uL (150-450); RBC 4.69 m/uL (3.80-5.40); RDW 15.2 % (11.5-15.5); WBC 6.3 k/uL (3.8-10.6)
[2020-01-21 19:32] LABS: ALT 12 U/L (4-34); AST 21 U/L (14-36); African American GFR (CKD) >90 (>60 ml/min/1.73 sqM); Albumin 3.7 g/dL (3.5-5.0); Alkaline Phosphatase 92 U/L (38-126); Anion Gap 7 mmol/L; Blood Urea Nitrogen 10 mg/dL (7-17); Calcium 9.4 mg/dL (8.4-10.2); Carbon Dioxide 22 mmol/L (22-30); Chloride 106 mmol/L (98-107); Glucose 103 mg/dL (74-99); Non-African American GFR(CKD) >90 (>60 ml/min/1.73 sqM); Potassium 4.7 mmol/L (3.5-5.1); Sodium 135 mmol/L (137-145); Total Bilirubin 0.4 mg/dL (0.2-1.3); Total Protein 6.8 g/dL (6.3-8.2)
[2020-01-21 20:19] VITALS: BP 148/86; PULSE 94; RESP 19; TEMP 98.8
== END 2020-01-21 20:01 | disposition home or self-care (01) ==
LOC: EC 16:12
DX: N39.0 Urinary tract infection, site not specified (principal); I10 Essential (primary) hypertension; R82.998 Other abnormal findings in urine; R09.02 Hypoxemia; G89.29 Other chronic pain; M54.9 Dorsalgia, unspecified; F17.200 Nicotine dependence, unspecified, uncomplicated; F41.9 Anxiety disorder, unspecified; F32.9 Major depressive disorder, single episode, unspecified; M19.90 Unspecified osteoarthritis, unspecified site; Z79.899 Other long term (current) drug therapy; Z88.8 Allergy status to other drugs, medicaments and biological substances
CPT/HCPCS: 36415; 71046; 80053; 81001; 85025; 87086; 93005; 99284